=== PATIENT | female | born 1985 | race Caucasian/White ===

== ENCOUNTER 2023-10-26 10:12 | Outpatient (AMB) | payer OTHER, SELFPAY ==
--- NOTE | 2023-10-26 10:11 | MHC.OFFWIV ---
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 States she has always had some mild lower back pain, however on 10/01, she woke up with terrible LBP, R>L. Reports painful bending and stepping, particularly with right foot. Pain also worsened with bearing down. Denies any leg radiation or weakness/numbness. She was seen at her PCP the following day and had XR done which revealed mild degenerative changes and lower lumbar facet arthropathy. She was prescribed Ibuprofen and Cyclobenzaprine and has been using this with some minor relief. Her mother is a physical therapist and has been helping her with massage, stretching, tens machine. Patient was also referred and starts formal PT in [place] on 11/04. [facility] Social History Patient Tobacco Use Status: Never used Tobacco Review of Systems Const All systems reviewed & are unremarkable except as noted in HPI and below Physical Exam Const General: cooperative Orientation/consciousness: patient oriented x3 Limitations: no limitations Neck Neck: Yes normal visual inspection and Yes full ROM Resp Effort & Inspection: normal respiratory effort Back/Spine/Pelvis Thoracic/Lumbar Spine: thoracic and lumbar spine normal to inspection, straight leg raise negative bilaterally, paraspinal muscle tenderness on the right greater than left and thoraco-lumbar ROM limited (extension, +facet loading, painful lat flexion R>L) Skin General skin exam: no rashes or lesions noted Neuro General: patient oriented x3 Gait exam (Neuro): Normal gait present Motor exam (neuro): 5/5 motor strength present throughout Extrem General: Yes capillary refill normal and Yes no clubbing, cyanosis or edema Psych Appearance: grossly normal Mental Status: mental status grossly normal Speech and movement: Normal speech and movement present Assessment & Plan Assessment & Plan (1) Lumbar facet arthropathy: Code(s): M47.816 - Spondylosis without myelopathy or radiculopathy, lumbar region Plan: Symptoms and exam are consistent with lumbar facet-mediated pain, R>L, in addition to some myofascial tenderness in her lower lumbar paraspinals. No radiculopathy, neg SLR. She has done some informal PT with her mother who is a physical therapist, and starts formal PT on 11/04. I have refilled her cyclobenzaprine and will put her on a short course of PO prednisone, as she has not had any benefit from Ibuprofen. We reviewed indications, use, possible s/e of medications. We also reviewed possibility of injection therapy with pain management office at [facility]. She is interested in this and would like referral, which I have placed. Encouraged to continue gentle stretching, ROM exercises as tolerated. She agrees with plan. She can f/u with PCP or at [facility] as needed if pain persists or new symtpoms develop. Orders: Referrals Pain Management Referral M47.816 - Spondylosis without myelopathy or radiculopathy, lumbar region Medications: New cyclobenzaprine 5 mg PO TID 5 days PRN 15 tabs 0RF muscle spasm M47.816 - Spondylosis without myelopathy or radiculopathy, lumbar region prednisone 20 mg PO BID 5 days 10 tabs 0RF M47.816 - Spondylosis without myelopathy or radiculopathy, lumbar region Coding Level of Care Code Est Pt Level 4 (76369) Diagnoses Lumbar facet arthropathy M47.816
[2023-10-26 10:16] VITALS: BP 160/100; PULSE 86; TEMP 36.7; O2SAT 97; BMI 41.2
== END 2023-10-26 10:49 | disposition home or self-care (01) ==
PROVIDERS: PCP Internal Medicine Nephrology; Visit Provider Nurse Practitioner Family
DX: M47.816 Spondylosis without myelopathy or radiculopathy, lumbar region (principal)
CPT/HCPCS: 99214

== ENCOUNTER → 2023-11-01 12:40 | Outpatient (BNVA) | payer OTHER, SELFPAY | PROVIDERS: PCP Internal Medicine Nephrology; Referring Provider Nurse Practitioner Family; Visit Provider Registered Nurse Emergency ==

== ENCOUNTER 2023-11-12 14:56 | Outpatient (AMB) | payer OTHER, SELFPAY ==
--- NOTE | 2023-11-12 14:57 | A.OFFVIS_ITS ---
Vital Signs 3 11/12/23 15:03 Height 5 ft 1 in Weight 216 lb BMI 40.8 BP 159/93 H Blood Pressure Location Rt brachial Position Sitting Pulse 108 H Pulse Source Pulse Oximeter Pulse Oximetry (%) 100 Oxygen Delivery Method Room Air Intake Visit Reasons: Low Back Pain Intake Note: Pain today 01/08 Corporate Affairs Manager Required: No Accompanied by: Self / Same As Patient Allergies sertraline Allergy (Unknown, Verified 11/12/23 15:02) Diarrhea HPI HPI Low Back Pain: Details: Patient is a pleasant 38-year-old female is history of chronic low back pain and facet arthropathy presents today for initial evaluation of low back pain. Denies any recent or past trauma, injury, or falls. Patient denies any inciting events but reports occasional ?weird dreams and states she remembers jumping out of bed. Back pain is axial and also radiates to both legs intermittently without any specific dermatome. She reports left foot numbness and tingling without weakness or foot drop. Patient completed one session of physical therapy at [facility] after which her back pain significantly increased. She could not return to work due to exacerbation of pain and has been taken intermittent days of since unknown back injury on 10/02/23. 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 She reports increased pain with prolonged walking, standing, climbing stairs. Lumbar xray was done in [facility] and is noted below. Patient reports back pain affects her daily activities and functioning, mobility, sleep, and social interactions. She is interested in interventional treatments to address her low back pain as well as restart physical therapy to strengthen her core and reduced muscle spasms. Denies any fever, abdominal or groin pain, bladder or bowel dysfunction, or saddle anesthesia. Patient receives psychological counseling for depression and anxiety at the [facility]. She consumes 6 cups of coffee daily, rare beer consumption and vaping. Patient denies illicit drug use. Location: Lower back pain, intermittent bilateral radiculopathy Duration: Chronic pain for >10 years, worsening 10/02/23, no inciting events Characteristics of symptom or complaint: Throbbing, stabbing, sharp, tingling Aggravating or associated factors: Movement, walking, standing Relieving factors: Heat, gaabapentin, cyclobenzaprine, Tylenol, Ibuprofen Treatment: PT- made pain worse after 1st session, chiropractor x5, TENS, massage [facility] Medical History (Updated 11/12/23 @ 21:49 by PUNEET Pack) De Quervain's syndrome (tenosynovitis) Anxiety and depression Former smoker Hyperlipidemia Allergic rhinitis Panic disorder Fibromyalgia IUD (intrauterine device) in place Heart palpitations Family history of ovarian cancer Eczema Muscle spasm of back Low back pain Morbid obesity with BMI of 40.0-44.9, adult Insomnia Surgical History (Updated 11/12/23 @ 21:49 by PUNEET Pack) Hx of reduction mammoplasty (~2008) History of surgery on wrist History of wisdom tooth extraction History of hemorrhoidectomy History of lumpectomy of right breast (~2021) Social History Alcohol intake: current Alcohol intake frequency: holidays/special occasions only Alcohol type: beer Patient Tobacco Use Status: Never used Tobacco e-Cigarette/Vaping Use: Currently Using Current occupational status: employed 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 No acute distress. Alert and oriented. Mood and affect appropriate. Follows and participates in conversation appropriately. Respiratory effort is unlabored. No cough. Able to transition from sit to stand unassisted. Ambulates with bilaterally normal heel strike and toe off. Const General: no acute distress, well developed, alert and awake; No confusion Nutritional Appearance: average body habitus and obese morbidly obese Orientation/consciousness: patient oriented x3 and No confusion General: Yes no CVA tenderness Back/Spine/Pelvis Other: Patient is able to walk and stand on heels and tip toes with no difficulties demonstrating good motor tone. No limping. Can flex forward to 80-85 degrees and extend to 5-10 degrees before experiencing lumbar pain, worse pain with extension. Demonstrates 5/5 strength of quadriceps bilaterally as well as flexion/dorsiflexion of bilateral feet against resistance. 2+ pedal pulses bilaterally. Seated and supine straight leg rise with dorsiflexion negative bilaterally. +2 patellar and achilles reflexes bilaterally. Facet loading test positive bilaterally, right>left. Addis sign, Terrence?s, Pelvic compression and Stinchfield tests are positive bilaterally, right>left. No groin pain with I/E hip rotations. Significant paraspinals tenderness mostly on the right, mid and lower back. Valsalva maneuver negative. Back: no CVA tenderness Cervical Spine: cervical ROM normal, cervical muscular tenderness and No Cervical spine tenderness Thoracic/Lumbar Spine: thoracic and lumbar spine normal to inspection, No Thoracic/lumbar spine scar(s), Lasegue's sign negative, straight leg raise negative bilaterally, pain with thoraco-lumbar ROM, paraspinal muscle tenderness on the right greater than left, thoraco-lumbar ROM limited, No thoracic spinal tenderness and lumbar spinal tenderness at L4 and at L5 Pelvis: buttock tenderness bilaterally Sacroiliac joints: bilaterally tender to palpation Neuro General: patient oriented x3 and No confusion Extrem General: Yes capillary refill normal, Yes no clubbing, cyanosis or edema and Yes no calf tenderness Psych Appearance: grossly normal Mental Status: mental status grossly normal Speech and movement: Normal speech and movement present Affect: normal affect and Anxious affect present Attitude: cooperative Thought process: Normal thought process present Thought content: Normal thought content present, suicidality (none), no hallucinations and No Depressive thoughts present Insight: Good insight present (Psych) Judgement: Good judgement present (Psych) Results Reviewed Results Reviewed: Assessment & Plan Assessment & Plan (1) Low back pain: Code(s): M54.50 - Low back pain, unspecified Category: Medical (2) Lumbosacral spondylosis: Code(s): M47.817 - Spondylosis without myelopathy or radiculopathy, lumbosacral region Category: Medical (3) Sacroiliac joint pain: Code(s): M53.3 - Sacrococcygeal disorders, not elsewhere classified Category: Medical (4) Muscle spasm of back: Code(s): M62.830 - Muscle spasm of back Category: Medical (5) Morbid obesity with BMI of 40.0-44.9, adult: Code(s): E66.01 - Morbid (severe) obesity due to excess calories; Z68.41 - Body mass index [BMI] 40.0-44.9, adult Category: Medical Plan Patient has low back pain consistent with axial and sacroiliac back pain components. We will proceed with sacroiliac joint x-ray. Tentatively schedule diagnostic bilateral L3-L4 DR L5 medial branch blocks with local and fluoroscopy. Expectations, risks and benefits were reviewed. If she has significant relief from the diagnostic blocks for her axial low back pain, will consider either therapeutic injections or RFA depending on her preference. Given BMI>40, she is not candidate for Sprint PNS trial at this time. If no pain relief with lumbar MBB, we will proceed with diagnostic bilateral SIJ injections. Script provided for lidocaine patch, methocarbamol and diclofenac potassium for acute on chronic low back pain. Side effects and precautions were discussed with patient in greater detail. Patient is aware to avoid other NSAIDs while taking diclofenac potassium with food and full glass of water and take it on p.r.n. basis only for moderate to severe pain. Work note provided at patient's request today. Encouraged daily physical activity as tolerated, PT and home exercise program, adequate hydration, well- balanced diet, weight optimization and good posture. All questions and concerns have been answered and patient agreed is the plan follow-up for x-ray results/medication review and sooner as needed. Orders: Orders 2 XR sacroiliac joint min 3V Today M47.817 - Spondylosis without myelopathy or radiculopathy, lumbosacral region, M53.3 - Sacrococcygeal disorders, not elsewhere classified, M54.50 - Low back pain, unspecified Medications: New 2 methocarbamol 750 mg PO Q8H PRN 90 tabs 0RF muscle spasm M47.817 - Spondylosis without myelopathy or radiculopathy, lumbosacral region, M53.3 - Sacrococcygeal disorders, not elsewhere classified, M54.50 - Low back pain, unspecified, M62.830 - Muscle spasm of back diclofenac potassium Take it with food and full glass of water. Avoid other NSAIDs. 50 mg PO BID PRN 60 tabs 0RF pain M47.817 - Spondylosis without myelopathy or radiculopathy, lumbosacral region, M53.3 - Sacrococcygeal disorders, not elsewhere classified, M54.50 - Low back pain, unspecified lidocaine 5% 1 patch topical DAILY 30 ea 1RF pain M47.817 - Spondylosis without myelopathy or radiculopathy, lumbosacral region, M53.3 - Sacrococcygeal disorders, not elsewhere classified, M54.50 - Low back pain, unspecified Discontinued 2 cyclobenzaprine Discontinued Reason: Patient Completed Course 5 mg PO TID 5 days PRN 15 tabs 0RF muscle spasm M47.816 - Spondylosis without myelopathy or radiculopathy, lumbar region Coding Level of Care Code New Pt Level 4 (42400) Diagnoses Low back pain M54.50 Lumbosacral spondylosis M47.817 Sacroiliac joint pain M53.3 Muscle spasm of back M62.830 Morbid obesity with BMI of 40.0-44.9, adult E66.01; Z68.41
[2023-11-12 15:03] VITALS: BP 159/93; PULSE 108; O2SAT 100; BMI 40.8
== END 2023-11-12 15:40 | disposition home or self-care (01) ==
PROVIDERS: PCP Internal Medicine; Referring Provider Physician Assistant; Visit Provider Nurse Practitioner Family
DX: M54.50 Low back pain, unspecified (principal); M47.817 Spondylosis without myelopathy or radiculopathy, lumbosacral region; M53.3 Sacrococcygeal disorders, not elsewhere classified; M62.830 Muscle spasm of back; E66.01 Morbid (severe) obesity due to excess calories; Z68.41 Body mass index [BMI] 40.0-44.9, adult
CPT/HCPCS: 99204

== ENCOUNTER 2023-11-12 14:56 | Outpatient (REF) | payer OTHER, SELFPAY ==
--- NOTE | ~2023-11-12 | XR_ITS ---
EXAMINATION: XR SACROILIAC JOINTS CLINICAL INFORMATION: Back pain unspecified. COMPARISON: None available. TECHNIQUE: 3 views of the sacroiliac joints FINDINGS: IUD in the pelvis. Degenerative changes in the imaged lower lumbar spine. Degenerative changes with sclerosis and narrowing in the bilateral sacroiliac joints. XR/XR sacroiliac joint min 3V IMPRESSION: Moderate degenerative changes with sclerosis and narrowing in the bilateral sacroiliac joints.
== END 2023-11-12 14:57 | disposition home or self-care (01) ==
LOC: HO.XRAY 14:56
PROVIDERS: PCP Internal Medicine; Referring Provider Physician Assistant; Visit Provider Nurse Practitioner Family
DX: M47.817 Spondylosis without myelopathy or radiculopathy, lumbosacral region (principal); M53.3 Sacrococcygeal disorders, not elsewhere classified
CPT/HCPCS: 72202

== ENCOUNTER 2023-11-27 08:53 | Outpatient (AMB) | payer OTHER, SELFPAY ==
--- NOTE | 2023-11-27 09:02 | A.OFFVIS_ITS ---
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 She continues to endorse low back pain with radiation to her hips and legs laterally with muscle spasms and pain in her buttocks. Xray findings showed moderate degenerative changes with sclerosis and narrowing in the bilateral sacroiliac joints. Patient reports strong family history of degenerative arthritis in her father and is concerned for inflammatory degenerative arthritis for herself. We will obtain baseline labs today and consider Rheumatology referral if indicated. In meantime, patient would like to proceed with therapeutic sacroiliac joint injections to alleviate her chronic daily low back pain and decrease regular NSAID use. She reports good tolerance with methocarbamol and diclofenac potassium without any side effects with partial and temporary pain relief. Denies any recent cough, cold, infection, fever, any significant changes in her medical history, medications or recent hospitalizations. PRIOR: Patient is a pleasant 38-year-old female with history of chronic low back pain and facet arthropathy presents today for initial evaluation of low back pain. Denies any recent or past trauma, injury, or falls. Patient denies any inciting events but reports occasional ?weird dreams and states she remembers jumping out of bed. Back pain is axial and also radiates to both legs intermittently without any specific dermatome. She reports left foot numbness and tingling without weakness or foot drop. Patient completed one session of physical therapy at [facility] after which her back pain significantly increased. She could not return to work due to exacerbation of pain and has been taken intermittent days of since unknown back injury on 10/02/23. 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 She reports increased pain with prolonged walking, standing, climbing stairs. Lumbar xray was done in [facility] [address] and is noted below. Patient reports back pain affects her daily activities and functioning, mobility, sleep, and social interactions. She is interested in interventional treatments to address her low back pain as well as restart physical therapy to strengthen her core and reduced muscle spasms. Denies any fever, abdominal or groin pain, bladder or bowel dysfunction, or saddle anesthesia. Patient receives psychological counseling for depression and anxiety at the [facility]. She consumes 6 cups of coffee daily, rare beer consumption and vaping. Patient denies illicit drug use. Location: Lower back pain, intermittent bilateral radiculopathy Duration: Chronic pain for >10 years, worsening 10/02/23, no inciting events Characteristics of symptom or complaint: Throbbing, stabbing, sharp, tingling Aggravating or associated factors: Movement, walking, standing Relieving factors: Heat, gabapentin, cyclobenzaprine, Tylenol, Ibuprofen Treatment: PT- made pain worse after 1st session, chiropractor x5, TENS, massage Oswestry Low Back Disability Score=35 [facility] Medical History De Quervain's syndrome (tenosynovitis) Anxiety and depression Former smoker Hyperlipidemia Allergic rhinitis Panic disorder Fibromyalgia IUD (intrauterine device) in place Heart palpitations Family history of ovarian cancer Eczema Muscle spasm of back Low back pain Morbid obesity with BMI of 40.0-44.9, adult Insomnia Surgical History Hx of reduction mammoplasty (~2008) History of surgery on wrist History of wisdom tooth extraction History of hemorrhoidectomy History of lumpectomy of right breast (~2021) Social History Alcohol intake: current Alcohol intake frequency: holidays/special occasions only Alcohol type: beer Patient Tobacco Use Status: Never used Tobacco e-Cigarette/Vaping Use: Currently Using Current occupational status: employed 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 Alert and oriented. Mood and affect appropriate. Follows and participates in conversation appropriately. Respiratory effort is unlabored. No cough. Able to transition from sit to stand unassisted. Ambulates with bilaterally normal heel strike and toe off. General: Yes no CVA tenderness Back/Spine/Pelvis Other: Limited lumbar ROM due to pain. Slightly antalgic gait. No limping. Can flex forward to 75-80 degrees and extend to 5-10 degrees before experiencing lumbar pain, worse pain with extension. Demonstrates 5/5 strength of quadriceps bilaterally as well as flexion/dorsiflexion of bilateral feet against resistance. 2+ pedal pulses bilaterally. SLR test with dorsiflexion negative bilaterally. +2 patellar and achilles reflexes bilaterally. Facet loading test positive bilaterally, right>left. Addis sign, Terrence?s, [place], Pelvic compression and Stinchfield tests are positive bilaterally, right>left. No groin pain with I/E hip rotations. Valsalva maneuver negative. Multiple widespread TTPs 16/16 bilaterally, including upper and lower extremities.?? Back: no CVA tenderness Cervical Spine: cervical ROM normal, cervical muscular tenderness and No Cervical spine tenderness Thoracic/Lumbar Spine: thoracic and lumbar spine normal to inspection, No Thoracic/lumbar spine scar(s), Lasegue's sign negative, straight leg raise negative bilaterally, pain with thoraco-lumbar ROM, paraspinal muscle tenderness on the right greater than left, thoraco-lumbar ROM limited, No thoracic spinal tenderness and lumbar spinal tenderness (L4-S1) Pelvis: buttock tenderness bilaterally Sacroiliac joints: bilaterally tender to palpation Extrem General: Yes capillary refill normal, Yes no clubbing, cyanosis or edema and Yes no calf tenderness Results Reviewed Results Reviewed: XR SACROILIAC JOINTS 11/12/23 CLINICAL INFORMATION: Back pain unspecified. FINDINGS: IUD in the pelvis. Degenerative changes in the imaged lower lumbar spine. Degenerative changes with sclerosis and narrowing in the bilateral sacroiliac joints. IMPRESSION: Moderate degenerative changes with sclerosis and narrowing in the bilateral sacroiliac joints. Assessment & Plan Assessment & Plan (1) Sacroiliac joint pain: Code(s): M53.3 - Sacrococcygeal disorders, not elsewhere classified Category: Medical (2) Degenerative joint disease of sacroiliac joint: Code(s): M46.1 - Sacroiliitis, not elsewhere classified Category: Medical (3) Lumbosacral spondylosis: Code(s): M47.817 - Spondylosis without myelopathy or radiculopathy, lumbosacral region Category: Medical (4) Low back pain: Code(s): M54.50 - Low back pain, unspecified Category: Medical (5) Muscle spasm of back: Code(s): M62.830 - Muscle spasm of back Category: Medical Plan Sacroiliac joint xray results and interventional treatments discussed with patient in greater detail, including diagnostic versus therapeutic injections, SI joint stabilization, peripheral nerve stimulation radiofrequency ablation. Informational pamphlets provided to patient. Patient would like to proceed with therapeutic injections at this time. Scheduled therapeutic bilateral sacroiliac joint injections with local and fluoroscopy. Expectations, risks and benefits were reviewed. Patient is aware she will be contacted to schedule this procedure. Will obtain baseline labs to rule out inflammatory arthritis with positive family history and significant bilateral SIJ arthritis with degenerative changes. Depending on results, will consider Rheumatology referral. All questions were answered and the patient is in agreement of plan. Follow-up after injections and sooner as needed. Orders: Orders 2 VICKY Reflex Titer and Pattern Today M46.1 - Sacroiliitis, not elsewhere classified, M53.3 - Sacrococcygeal disorders, not elsewhere classified Rheumatoid Factor Today M46.1 - Sacroiliitis, not elsewhere classified, M53.3 - Sacrococcygeal disorders, not elsewhere classified CRP High Sensitivity Today M46.1 - Sacroiliitis, not elsewhere classified, M53.3 - Sacrococcygeal disorders, not elsewhere classified Erythrocyte Sedimentation Rate Today M46.1 - Sacroiliitis, not elsewhere classified, M53.3 - Sacrococcygeal disorders, not elsewhere classified DNA Double Stranded-Crithidia Today M46.1 - Sacroiliitis, not elsewhere classified, M53.3 - Sacrococcygeal disorders, not elsewhere classified Cyclic Citrullinated Peptide Today M46.1 - Sacroiliitis, not elsewhere classified, M53.3 - Sacrococcygeal disorders, not elsewhere classified Coding Level of Care Code Est Pt Level 4 (62889) Diagnoses Sacroiliac joint pain M53.3 Degenerative joint disease of sacroiliac joint M46.1 Lumbosacral spondylosis M47.817 Low back pain M54.50 Muscle spasm of back M62.830
[2023-11-27 09:04] VITALS: BP 137/75; PULSE 87; O2SAT 99; BMI 40.8
== END 2023-11-27 09:31 | disposition home or self-care (01) ==
PROVIDERS: PCP Internal Medicine; Visit Provider Nurse Practitioner Family
DX: M53.3 Sacrococcygeal disorders, not elsewhere classified (principal); M46.1 Sacroiliitis, not elsewhere classified; M47.817 Spondylosis without myelopathy or radiculopathy, lumbosacral region; M54.50 Low back pain, unspecified; M62.830 Muscle spasm of back
CPT/HCPCS: 99214

== ENCOUNTER 2023-11-27 08:54 | Outpatient (REF) | payer OTHER, SELFPAY ==
[2023-11-27 11:12] LABS: Erythrocyte Sedimentation Rate 10 MM/HR (0-20)
[2023-11-27 11:17] LABS: Rheumatoid Factor < 13.0 IU/mL (<15.0)
[2023-11-28 15:38] LABS: Cyclic Citrullinated Peptide <16 UNITS
[2023-11-28 17:33] LABS: CRP High Sensitivity 8.9 mg/L
[2023-11-29 21:23] LABS: Anti Nuclear Antibody Screen NEGATIVE (NEGATIVE)
[2023-12-02 15:08] LABS: DNAds, Crithidia Antibody Negative (Negative)
== END 2023-11-27 08:55 | disposition home or self-care (01) ==
LOC: HO.LAB 08:54
PROVIDERS: PCP Internal Medicine; Visit Provider Nurse Practitioner Family
DX: M53.3 Sacrococcygeal disorders, not elsewhere classified (principal); M46.1 Sacroiliitis, not elsewhere classified; M47.817 Spondylosis without myelopathy or radiculopathy, lumbosacral region; M54.50 Low back pain, unspecified; M62.830 Muscle spasm of back
CPT/HCPCS: 36415; 85652; 86038; 86141; 86200; 86255; 86431

== ENCOUNTER 2024-01-01 06:18 | Outpatient (REF) | payer OTHER, SELFPAY ==
--- NOTE | ~2024-01-01 | FL_ITS ---
EXAMINATION: XR FLUOROSCOPY WITH IMAGES CLINICAL INFORMATION: Sacrococcygeal disorders. COMPARISON: None available. TECHNIQUE: Fluoroscopy Supervised By: Dr. Marbin Tijerina. Fluoroscopy Time: 0.1 minute. Cumulative Dose: 3.84 mGy. DAP: 0.0667 Gycm2. Images: 2. FINDINGS: Intraoperative fluoroscopy and spot films were performed during a procedure in the OR. [place] are present in each SI joint with contrast media injected and seen surrounding the needle tips. Please correlate with Dr. Marbin Tijerina's report for complete details. FL/FL guidance in treatment room IMPRESSION: Intraoperative fluoroscopy and spot films were obtained. Please see Dr. Marbin Tijerina's report for complete details.
== END 2024-01-01 06:19 | disposition home or self-care (01) ==
LOC: CF 06:18
PROVIDERS: Visit Provider Anesthesiology
DX: M53.3 Sacrococcygeal disorders, not elsewhere classified (principal); M54.50 Low back pain, unspecified
CPT/HCPCS: 27096; J2795; J3301; Q9967

== ENCOUNTER 2024-01-01 14:02 | Outpatient (AMB) | payer OTHER, SELFPAY ==
--- NOTE | 2024-01-01 14:02 | A.OFFVIS_ITS ---
Vital Signs 01/01/24 14:48 01/01/24 14:49 Height 5 ft 1 in 5 ft 1 in Weight 216 lb 216 lb BMI 40.8 40.8 BP 113/71 124/63 Blood Pressure Location Lt brachial Lt brachial Position Sitting Sitting Respiration 16 16 Pulse 78 72 Pulse Source Pulse Oximeter Pulse Oximeter Pulse Oximetry (%) 98 98 Oxygen Delivery Method Room Air Room Air Comment pre-op post-op Intake Visit Reasons: Bilateral Therapeutic SIJ injrction Allergies sertraline Allergy (Unknown, Verified 01/01/24 14:50) Diarrhea PFSH Medical History De Quervain's syndrome (tenosynovitis) Anxiety and depression Former smoker Hyperlipidemia Allergic rhinitis Panic disorder Fibromyalgia IUD (intrauterine device) in place Heart palpitations Family history of ovarian cancer Eczema Muscle spasm of back Low back pain Morbid obesity with BMI of 40.0-44.9, adult Insomnia Surgical History Hx of reduction mammoplasty (~2008) History of surgery on wrist History of wisdom tooth extraction History of hemorrhoidectomy History of lumpectomy of right breast (~2021) Social History Alcohol intake: current Alcohol intake frequency: holidays/special occasions only Alcohol type: beer Patient Tobacco Use Status: Never used Tobacco e-Cigarette/Vaping Use: Currently Using Current occupational status: employed 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 Informed consent was explained thoroughly to the patient. All questions about benefits and risks for the procedure were answered. Patient came to the operating room and was positioned prone on the operating table with the pillow under the pelvis. Time out was performed delineating name and of the patient, allergies and the nature of the procedure. The lower back and buttocks of the patient were prepped with ChloraPrep prepped and draped with sterile utility towels. C-arm was brought over the operating field and sq picture of patient's pelvis was demonstrated on the screen. For the right joint tilting C-arm contralateral to the site of the joint the most posterior portion of the joints was superimposed with anterior silhouette of the joint. Skin was injected in the projection of the joint slightly medial to the location of the joint with 25 gauge 1/2 inch needle using local lidocaine 2% .After that 22 gauge 3 and 1/2 inch needle was driven to the right joint in tunnel vision fashion. When needle entered the joint capsule injection of the contrast was performed demonstrating intra-articular and minimally periarticular spread of the contrast. After that 4 cc. of ropivacaine 0.5% mixed with kenalog 40 mg was injected into the joint. Upon completion of the injections the needle was removed. The procedure was repeated on the left side in the mirroring fashion. total dose of kenalog is 40 mgSterile dressing was applied. Upon completion of the injection patient was taken outside of the operating room to the recovery room where recovered uneventfully. Orders: Orders FL guidance in treatment room 01/01/24 M53.3 - Sacrococcygeal disorders, not elsewhere classified Coding Level of Care Code Procedure Only Diagnoses Sacroiliac joint pain M53.3 Low back pain M54.50
[2024-01-01 14:48] VITALS: BP 113/71; PULSE 78; RESP 16; O2SAT 98; BMI 40.8
[2024-01-01 14:49] VITALS: BP 124/63; PULSE 72; RESP 16; O2SAT 98; BMI 40.8
== END 2024-01-01 14:29 | disposition home or self-care (01) ==
PROVIDERS: PCP Internal Medicine; Visit Provider Anesthesiology
DX: M53.3 Sacrococcygeal disorders, not elsewhere classified (principal); M54.50 Low back pain, unspecified
CPT/HCPCS: 27096

== ENCOUNTER 2024-01-28 10:51 | Outpatient (AMB) | payer OTHER, SELFPAY ==
--- NOTE | 2024-01-28 10:54 | A.OFFVIS_ITS ---
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 Tijerina. Patient reports ongoing 80% pain relief in the projection of lower back, hip and buttocks since procedure with improved functioning, mobility and sleep. She reports she cannot walk for full block yet due to increase in pain but notices most of her ADLs are performed with minimal to no pain since injections. She denies any pain at rest or sleep. Patient is very content with procedure outcome. Denies any untoward effects with steroidal injections. We also reviewed baseline labs prior Rheumatology evaluation, which all came back within normal limits except CRP at 8.9. We will repeat CRP. Patient denies any recent cough, cold, infection, rash, fever, any significant changes in her medical history, medications or recent hospitalizations. Past Procedures: 01/01/24: Bilateral Therapeutic SIJ injections-80% ongoing pain relief with activities, 100% pain relief at rest or sleep PRIOR: Patient presents today for follow-up to review recent sacroiliac joint injection x-ray results. She continues to endorse low back pain with radiation to her hips and legs laterally with muscle spasms and pain in her buttocks. Xray findings showed moderate degenerative changes with sclerosis and narrowing in the bilateral sacroiliac joints. Patient reports strong family history of degenerative arthritis in her father and is concerned for inflammatory degenerative arthritis for herself. We will obtain baseline labs today and consider Rheumatology referral if indicated. In meantime, patient would like to proceed with therapeutic sacroiliac joint injections to alleviate her chronic daily low back pain and decrease regular NSAID use. She reports good tolerance with methocarbamol and diclofenac potassium without any side effects with partial and temporary pain relief. Denies any recent cough, cold, infection, fever, any significant changes in her medical history, medications or recent hospitalizations. PRIOR: Patient is a pleasant 38-year-old female with history of chronic low back pain and facet arthropathy presents today for initial evaluation of low back pain. Denies any recent or past trauma, injury, or falls. Patient denies any inciting events but reports occasional ?weird dreams and states she remembers jumping out of bed. Back pain is axial and also radiates to both legs intermittently without any specific dermatome. She reports left foot numbness and tingling without weakness or foot drop. Patient completed one session of physical therapy at [facility] after which her back pain significantly increased. She could not return to work due to exacerbation of pain and has been taken intermittent days of since unknown back injury on 10/02/23. 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 She reports increased pain with prolonged walking, standing, climbing stairs. Lumbar xray was done in [facility] and is noted below. Patient reports back pain affects her daily activities and functioning, mobility, sleep, and social interactions. She is interested in interventional treatments to address her low back pain as well as restart physical therapy to strengthen her core and reduced muscle spasms. Denies any fever, abdominal or groin pain, bladder or bowel dysfunction, or saddle anesthesia. Patient receives psychological counseling for depression and anxiety at the [facility] psychiat[facility]. She consumes 6 cups of coffee daily, rare beer consumption and vaping. Patient denies illicit drug use. Location: Lower back pain, intermittent bilateral radiculopathy Duration: Chronic pain for >10 years, worsening 10/02/23, no inciting events Characteristics of symptom or complaint: Throbbing, stabbing, sharp, tingling Aggravating or associated factors: Movement, walking, standing Relieving factors: Heat, gabapentin, cyclobenzaprine, Tylenol, Ibuprofen Treatment: PT- made pain worse after 1st session, chiropractor x5, TENS, massage Oswestry Low Back Disability Score=35 [facility] Medical History De Quervain's syndrome (tenosynovitis) Anxiety and depression Former smoker Hyperlipidemia Allergic rhinitis Panic disorder Fibromyalgia IUD (intrauterine device) in place Heart palpitations Family history of ovarian cancer Eczema Muscle spasm of back Low back pain Morbid obesity with BMI of 40.0-44.9, adult Insomnia Surgical History Hx of reduction mammoplasty (~2008) History of surgery on wrist History of wisdom tooth extraction History of hemorrhoidectomy History of lumpectomy of right breast (~2021) Social History Alcohol intake: current Alcohol intake frequency: holidays/special occasions only Alcohol type: beer Patient Tobacco Use Status: Never used Tobacco e-Cigarette/Vaping Use: Currently Using Current occupational status: employed 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 Alert and oriented. Mood and affect appropriate. Follows and participates in conversation appropriately. Respiratory effort is unlabored. No cough. Able to transition from sit to stand unassisted. Ambulates with bilaterally normal heel strike and toe off. Results Reviewed Results Reviewed: XR SACROILIAC JOINTS 11/12/23 CLINICAL INFORMATION: Back pain unspecified. FINDINGS: IUD in the pelvis. Degenerative changes in the imaged lower lumbar spine. Degenerative changes with sclerosis and narrowing in the bilateral sacroiliac joints. IMPRESSION: Moderate degenerative changes with sclerosis and narrowing in the bilateral sacroiliac joints. Assessment & Plan Assessment & Plan (1) Degenerative joint disease of sacroiliac joint: Code(s): M46.1 - Sacroiliitis, not elsewhere classified Category: Medical (2) Sacroiliac joint pain: Code(s): M53.3 - Sacrococcygeal disorders, not elsewhere classified Category: Medical (3) Lumbosacral spondylosis: Code(s): M47.817 - Spondylosis without myelopathy or radiculopathy, lumbosacral region Category: Medical (4) Low back pain: Code(s): M54.50 - Low back pain, unspecified Category: Medical Plan Patient is one month status post therapeutic bilateral SIJ injections with good results, improved functioning, mobility and sleep. Patient will continue to monitor her symptoms and pain for next 3-6 months and notify our office when her pain returns to baseline. Previously, we also discussed SI joint stabilization, peripheral nerve stimulation and radiofrequency ablation treatments for a longer term pain management. Reviewed lab work today as noted above, will repeat CRP level given recent elevated values at 8.9 All questions were answered and the patient is in agreement of plan. Follow-up as needed. Orders: Orders 2 CRP High Sensitivity Today M46.1 - Sacroiliitis, not elsewhere classified, R79.82 - Elevated C-reactive protein (CRP) Coding Level of Care Code Est Pt Level 3 (48440) Diagnoses Degenerative joint disease of sacroiliac joint M46.1 Sacroiliac joint pain M53.3 Lumbosacral spondylosis M47.817 Low back pain M54.50
[2024-01-28 10:58] VITALS: BP 168/88; PULSE 77; O2SAT 100; BMI 40.5
== END 2024-01-28 11:06 | disposition home or self-care (01) ==
PROVIDERS: PCP Internal Medicine; Visit Provider Nurse Practitioner Family
DX: M46.1 Sacroiliitis, not elsewhere classified (principal); M53.3 Sacrococcygeal disorders, not elsewhere classified; M47.817 Spondylosis without myelopathy or radiculopathy, lumbosacral region; M54.50 Low back pain, unspecified
CPT/HCPCS: 99213

== ENCOUNTER → 2024-01-28 10:51 | Outpatient (BNVA) | payer OTHER, SELFPAY | PROVIDERS: PCP Internal Medicine; Visit Provider Nurse Practitioner Family ==

== ENCOUNTER 2024-03-14 15:02 | Outpatient (AMB) | payer OTHER, SELFPAY ==
--- NOTE | 2024-03-14 15:06 | A.OFFVIS_ITS ---
Vital Signs 3 03/14/24 15:11 Height 5 ft 1 in Weight 214 lb BMI 40.4 BP 138/82 Blood Pressure Location Lt brachial Position Sitting Pulse 70 Pulse Source Pulse Oximeter Pulse Oximetry (%) 98 Oxygen Delivery Method Room Air Intake Visit Reasons: Low Back Pain Intake Note: Pain today 12/09 Residential Specialist Required: No Accompanied by: Self / Same As Patient Allergies sertraline Allergy (Unknown, Verified 03/14/24 15:11) Diarrhea HPI Comments Details: Patient presents today for follow-up for chronic low back pain with radicular symptoms. Patient reports significant bilateral sacroiliac joint pain with temporary therapeutic effects from recent cortisone injections in December. She also presents with significant discogenic and radicular low back pain, which affecting her ADLs, mobility, and work. Patient is interested to undergo diagnostic SI joint injections for potential RFA procedure. She denies any pain at rest or sleep. Patient denies any recent cough, cold, infection, rash, fever, bladder or bowel dysfunction, saddle anesthesia, any significant changes in her medical history, medications or recent hospitalizations. Past Procedures: 01/01/24: Bilateral Therapeutic SIJ injections-80% ongoing pain relief with activities, 100% pain relief at rest or sleep PRIOR: Patient presents today for follow-up to review recent sacroiliac joint injection x-ray results. She continues to endorse low back pain with radiation to her hips and legs laterally with muscle spasms and pain in her buttocks. Xray findings showed moderate degenerative changes with sclerosis and narrowing in the bilateral sacroiliac joints. Patient reports strong family history of degenerative arthritis in her father and is concerned for inflammatory degenerative arthritis for herself. We will obtain baseline labs today and consider Rheumatology referral if indicated. In meantime, patient would like to proceed with therapeutic sacroiliac joint injections to alleviate her chronic daily low back pain and decrease regular NSAID use. She reports good tolerance with methocarbamol and diclofenac potassium without any side effects with partial and temporary pain relief. Denies any recent cough, cold, infection, fever, any significant changes in her medical history, medications or recent hospitalizations. PRIOR: Patient is a pleasant 38-year-old female with history of chronic low back pain and facet arthropathy presents today for initial evaluation of low back pain. Denies any recent or past trauma, injury, or falls. Patient denies any inciting events but reports occasional ?weird dreams and states she remembers jumping out of bed. Back pain is axial and also radiates to both legs intermittently without any specific dermatome. She reports left foot numbness and tingling without weakness or foot drop. Patient completed one session of physical therapy at [facility] after which her back pain significantly increased. She could not return to work due to exacerbation of pain and has been taken intermittent days of since unknown back injury on 10/02/23. 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 She reports increased pain with prolonged walking, standing, climbing stairs. Lumbar xray was done in [facility] and is noted below. Patient reports back pain affects her daily activities and functioning, mobility, sleep, and social interactions. She is interested in interventional treatments to address her low back pain as well as restart physical therapy to strengthen her core and reduced muscle spasms. Denies any fever, abdominal or groin pain, bladder or bowel dysfunction, or saddle anesthesia. Patient receives psychological counseling for depression and anxiety at the [facility]. She consumes 6 cups of coffee daily, rare beer consumption and vaping. Patient denies illicit drug use. Location: Lower back pain, intermittent bilateral radiculopathy Duration: Chronic pain for >10 years, worsening 10/02/23, no inciting events Characteristics of symptom or complaint: Throbbing, stabbing, sharp, tingling Aggravating or associated factors: Movement, walking, standing Relieving factors: Heat, gabapentin, cyclobenzaprine, Tylenol, Ibuprofen Treatment: PT- made pain worse after 1st session, chiropractor x5, TENS, massage Oswestry Low Back Disability Score=35 [facility] Medical History De Quervain's syndrome (tenosynovitis) Anxiety and depression Former smoker Hyperlipidemia Allergic rhinitis Panic disorder Fibromyalgia IUD (intrauterine device) in place Heart palpitations Family history of ovarian cancer Eczema Muscle spasm of back Low back pain Morbid obesity with BMI of 40.0-44.9, adult Insomnia Surgical History Hx of reduction mammoplasty (~2008) History of surgery on wrist History of wisdom tooth extraction History of hemorrhoidectomy History of lumpectomy of right breast (~2021) Social History Alcohol intake: current Alcohol intake frequency: holidays/special occasions only Alcohol type: beer Patient Tobacco Use Status: Never used Tobacco e-Cigarette/Vaping Use: Currently Using Current occupational status: employed 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 Alert and oriented. Mood and affect appropriate. Follows and participates in conversation appropriately. Respiratory effort is unlabored. No cough. Able to transition from sit to stand unassisted. Ambulates with bilaterally normal heel strike and toe off. General: Yes no CVA tenderness Back/Spine/Pelvis Other: Limited lumbar ROM due to pain. Slightly antalgic gait. No limping. Can flex forward to 65-70 degrees and extend to 5-10 degrees before experiencing lumbar pain, worse pain with extension. Demonstrates 5/5 strength of quadriceps bilaterally as well as flexion/dorsiflexion of bilateral feet against resistance. 2+ pedal pulses bilaterally. SLR test with dorsiflexion negative bilaterally. +2 patellar and achilles reflexes bilaterally. Facet loading test positive bilaterally, right>left. Addis sign, Terrence?s, [place], Pelvic compression and Stinchfield tests are positive bilaterally. No groin pain with I/E hip rotations. Valsalva maneuver negative. Back: no CVA tenderness Cervical Spine: cervical ROM normal, cervical muscular tenderness and No Cervical spine tenderness Thoracic/Lumbar Spine: thoracic and lumbar spine normal to inspection, No Thoracic/lumbar spine scar(s), Lasegue's sign negative, straight leg raise negative bilaterally, pain with thoraco-lumbar ROM, paraspinal muscle tenderness on the right greater than left, thoraco-lumbar ROM limited, No thoracic spinal tenderness and lumbar spinal tenderness (L4-S1) Pelvis: buttock tenderness bilaterally Sacroiliac joints: bilaterally tender to palpation Extrem General: Yes capillary refill normal, Yes no clubbing, cyanosis or edema and Yes no calf tenderness Results Reviewed Results Reviewed: XR SACROILIAC JOINTS 11/12/23 CLINICAL INFORMATION: Back pain unspecified. FINDINGS: IUD in the pelvis. Degenerative changes in the imaged lower lumbar spine. Degenerative changes with sclerosis and narrowing in the bilateral sacroiliac joints. IMPRESSION: Moderate degenerative changes with sclerosis and narrowing in the bilateral sacroiliac joints. Assessment & Plan Assessment & Plan (1) Lumbosacral spondylosis: Code(s): M47.817 - Spondylosis without myelopathy or radiculopathy, lumbosacral region Category: Medical (2) Discogenic low back pain: Code(s): M51.36 - Other intervertebral disc degeneration, lumbar region Category: Medical (3) Lumbar radiculitis: Code(s): M54.16 - Radiculopathy, lumbar region Category: Medical (4) Degenerative joint disease of sacroiliac joint: Code(s): M46.1 - Sacroiliitis, not elsewhere classified Category: Medical (5) Sacroiliac joint pain: Code(s): M53.3 - Sacrococcygeal disorders, not elsewhere classified Category: Medical (6) Low back pain: Code(s): M54.50 - Low back pain, unspecified Category: Medical Plan Patient is 2 months status post therapeutic bilateral SIJ injections with return of her low back pain to its baseline. She also reports significant discogenic and radicular symptoms today. We will proceed with lumbar spine MRI to assess for neural integrity and compression. Schedule bilateral diagnostic sacroiliac joint injection with local and fluoroscopy for potential RFA procedure. We also discussed neuromodulation with Sprint PNS trial vs permanent Curonix PNS implant. Expectations, risks and benefits were reviewed. Patient is aware she will be contacted to schedule this procedure All questions were answered and the patient is in agreement of plan. Follow-up as needed. Orders: Orders 2 MR lumbar spine wo con Today M47.817 - Spondylosis without myelopathy or radiculopathy, lumbosacral region, M51.36 - Other intervertebral disc degeneration, lumbar region, M54.16 - Radiculopathy, lumbar region Coding Level of Care Code Est Pt Level 4 (26034) Complex EM visit Add On G2211 Diagnoses Lumbosacral spondylosis M47.817 Discogenic low back pain M51.36 Lumbar radiculitis M54.16 Degenerative joint disease of sacroiliac joint M46.1 Sacroiliac joint pain M53.3 Low back pain M54.50
[2024-03-14 15:11] VITALS: BP 138/82; PULSE 70; O2SAT 98; BMI 40.4
== END 2024-03-14 15:28 | disposition home or self-care (01) ==
PROVIDERS: PCP Internal Medicine; Visit Provider Nurse Practitioner Family
DX: M47.817 Spondylosis without myelopathy or radiculopathy, lumbosacral region (principal); M51.36 Other intervertebral disc degeneration, lumbar region; M54.16 Radiculopathy, lumbar region; M46.1 Sacroiliitis, not elsewhere classified; M53.3 Sacrococcygeal disorders, not elsewhere classified; M54.50 Low back pain, unspecified
CPT/HCPCS: 99214

== ENCOUNTER → 2024-03-14 15:02 | Outpatient (BNVA) | payer OTHER, SELFPAY | PROVIDERS: PCP Internal Medicine; Visit Provider Nurse Practitioner Family ==

== ENCOUNTER 2024-05-06 06:17 | Outpatient (REF) | payer OTHER, SELFPAY | END 2024-05-06 06:18 | disposition home or self-care (01) | LOC: CF 06:17 | PROVIDERS: Visit Provider Anesthesiology | DX: M53.3 Sacrococcygeal disorders, not elsewhere classified (principal) | CPT/HCPCS: 27096; J2003; J2795; Q9967 ==

== ENCOUNTER 2024-05-06 13:32 | Outpatient (AMB) | payer OTHER, SELFPAY ==
--- NOTE | 2024-05-06 13:37 | MHC.OFFVIS ---
Vital Signs 05/06/24 14:18 05/06/24 14:19 Height 5 ft 1 in 5 ft 1 in Weight 214 lb 214 lb BMI 40.4 40.4 BP 145/70 H 121/74 Blood Pressure Location Lt brachial Lt brachial Position Sitting Sitting Respiration 16 16 Pulse 79 75 Pulse Source Pulse Oximeter Pulse Oximeter Pulse Oximetry (%) 100 100 Oxygen Delivery Method Room Air Room Air Comment pre-op post-op Intake Visit Reasons: BILATERAL DIAGNOSTIC SIJ INJECTIONS Allergies sertraline Allergy (Unknown, Verified 05/06/24 14:22) Diarrhea PFSH Medical History De Quervain's syndrome (tenosynovitis) Anxiety and depression Former smoker Hyperlipidemia Allergic rhinitis Panic disorder Fibromyalgia IUD (intrauterine device) in place Heart palpitations Family history of ovarian cancer Eczema Muscle spasm of back Low back pain Morbid obesity with BMI of 40.0-44.9, adult Insomnia Surgical History Hx of reduction mammoplasty (~2008) History of surgery on wrist History of wisdom tooth extraction History of hemorrhoidectomy History of lumpectomy of right breast (~2021) Social History Alcohol intake: current Alcohol intake frequency: holidays/special occasions only Alcohol type: beer Patient Tobacco Use Status: Never used Tobacco e-Cigarette/Vaping Use: Currently Using Current occupational status: employed 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 All questions about benefits and risks for the procedure were answered. Patient came to the operating room and was positioned prone on the operating table with the pillow under the abdomen. The lower back and buttocks of the patient were prepped with ChloraPrep prepped and draped with sterile utility towels.? Sterilely draped C-arm was brought over the operating field and sq picture of patient's pelvis was demonstrated on the screen.? For the right joint tilting C-arm contralateral to the site of the joint the most posterior portion of the joints was superimposed with anterior silhouette of the joint.? Skin was injected in the projection of the joint slightly medial to the location of the joint with 25 gauge 1/2 inch needle using local lidocaine 2% . After that 22 gauge 3 and 1/2 inch needle was driven to the right joint in tunnel vision fashion.? When needle entered the joint capsule injection of the contrast was performed demonstrating intra-articular and minimally periarticular spread of the contrast.? After that 4 cc. of ropivacaine 0.5% was injected in the joint. After that procedure was repeated on the left side in mirroring fashion. Same dose of ropivacaine was injected into the joint. Upon completion of the injections the needle was removed and Band-Aid was applied.? Upon completion of the injection patient was taken outside of the operating room to the recovery room where recovered uneventfully. Orders: Orders FL guidance in treatment room Today M53.3 - Sacrococcygeal disorders, not elsewhere classified Coding Level of Care Code Procedure Only Diagnoses Sacroiliac joint pain M53.3
[2024-05-06 14:18] VITALS: BP 145/70; PULSE 79; RESP 16; O2SAT 100; BMI 40.4
[2024-05-06 14:19] VITALS: BP 121/74; PULSE 75; RESP 16; O2SAT 100; BMI 40.4
== END 2024-05-06 14:30 | disposition home or self-care (01) ==
LOC: HO.PMCPRC 13:32
PROVIDERS: PCP Internal Medicine; Visit Provider Anesthesiology
DX: M53.3 Sacrococcygeal disorders, not elsewhere classified (principal)
CPT/HCPCS: 27096

== ENCOUNTER 2024-05-13 14:25 | Outpatient (AMB) | payer OTHER, SELFPAY ==
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
[2024-05-13 14:30] VITALS: BP 195/104; PULSE 70; O2SAT 98; BMI 41.1
[2024-05-13 14:48] VITALS: BP 140/72
== END 2024-05-13 14:50 | disposition home or self-care (01) ==
PROVIDERS: PCP Internal Medicine; Visit Provider Nurse Practitioner Family
DX: M47.817 Spondylosis without myelopathy or radiculopathy, lumbosacral region (principal); M46.1 Sacroiliitis, not elsewhere classified; M53.3 Sacrococcygeal disorders, not elsewhere classified; M54.50 Low back pain, unspecified
CPT/HCPCS: 99214

== ENCOUNTER → 2024-08-31 14:47 | Outpatient (BNV) | payer OTHER, SELFPAY | PROVIDERS: PCP Internal Medicine; Visit Provider Radiology Diagnostic Radiology | DX: M47.817 Spondylosis without myelopathy or radiculopathy, lumbosacral region (principal) | CPT/HCPCS: 72148 ==

== ENCOUNTER 2024-08-31 14:52 | Outpatient (REF) | payer OTHER, SELFPAY ==
--- NOTE | ~2024-08-31 | MR_ITS ---
CLINICAL HISTORY: M47.817 - Spondylosis without myelopathy or radiculopathy, lumbosacral r... MR of the lumbar spine without contrast Comparison: None Findings: Normal alignment. Normal marrow signal. No cord expansion or abnormal signal intensity. The conus medullaris terminates at L1/L2, which is normal. 2 mm focus of increased signal on the T1 weighted images may indicate a fatty filum terminale (only well seen on series 9, image 10). There is edema in the subcutaneous fat. L1/L2: No disc herniation. No facet joint or ligamentum flavum hypertrophy. No central canal stenosis. No lateral recess stenosis. No foraminal stenosis. L2/L3: No disc herniation. No facet joint or ligamentum flavum hypertrophy. No central canal stenosis. No lateral recess stenosis. No foraminal stenosis. L3/L4: 2-3 mm broad-based disc bulge. Mild facet joint and ligamentum flavum hypertrophy. Mild central canal stenosis. Mild bilateral lateral recess stenosis. No foraminal stenosis. L4/L5: 2 mm broad-based disc bulge. Moderate facet joint and ligamentum flavum hypertrophy. Mild central canal stenosis. Moderate bilateral lateral recess stenosis. No foraminal stenosis. L5/S1: No disc herniation. Mild facet joint and ligamentum flavum hypertrophy. [id number] central canal stenosis; predominantly secondary to epidural lipomatosis. Epidural lipomatosis is present at the other levels, however is most prominent L5/S1. Mild bilateral lateral recess stenosis. No foraminal stenosis. Impression: No acute findings. [id number] multilevel degenerative change, detailed above. Focus of increased signal on the T1 weighted images which is only well seen on a single image could be fatty filum terminale. The spinal cord is not low-lying. This document has been electronically signed by: Mary Gore MD on 08/31/2024 15:54:19
== END 2024-08-31 14:53 | disposition home or self-care (01) ==
LOC: HO.MRI 14:52
PROVIDERS: PCP Internal Medicine; Visit Provider Nurse Practitioner Family
DX: M47.817 Spondylosis without myelopathy or radiculopathy, lumbosacral region (principal); M54.16 Radiculopathy, lumbar region
CPT/HCPCS: 72148

== ENCOUNTER 2024-09-15 14:50 | Outpatient (AMB) | payer OTHER, SELFPAY ==
--- NOTE | 2024-09-15 14:52 | MHC.OFFVIS ---
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 She continues to endorse chronic lower back pain with radiation pain down the left leg more posteriorly than anteriorly wiht associated numbness and tingling. The patient's lumbar spine degeneration has culminated in moderate spinal canal stenosis, particularly affecting the L5-S1 region, with associated ligamentous hypertrophy and epidural lipomatosis as noted below. Pain symptoms have worsened over two to three weeks, leading to significant activity limitations. Past therapeutic efforts have included pharmacological intervention with ibuprofen, gabapentin, and metocarbamol. However, pursuit of sacroiliac joint therapy has been repeatedly denied by insurance, prompting the patient to explore new insurance options for better access to advanced pain management such as nerve ablation or Sprint PNS trial. Denies any recent cough, cold, infection, rash, fever, bladder or bowel dysfunction, saddle anesthesia, any significant changes in her medical history, medications or recent hospitalizations. - Onset and Timing: Chronic pain, worsened in the past 2-3 weeks. - Quality and Character: Lower back pain with radiation to the legs, particularly left leg; described as weak. - Primary Location: Lower back and left leg - Radiation Areas: Left leg, especially the side and possibly the back of the leg. - Exacerbating Factors: Flexing backwards, movements, standing upright or walking - Relieving Factors: Minimal relief with activity modifications, medications, heat therapy - Functional Interference: Walking, cleaning, doing dishes, cooking, working, showering, and sleeping. Past Procedures: 05/06/24: Bilateral Diagnostic SIJ injections-100% pain relief for 6.5 hours 01/01/24: Bilateral Therapeutic SIJ injections-80% ongoing pain relief with activities, 100% pain relief at rest or sleep PRIOR: Patient presents today for follow-up to review recent sacroiliac joint injection x-ray results. She continues to endorse low back pain with radiation to her hips and legs laterally with muscle spasms and pain in her buttocks. Xray findings showed moderate degenerative changes with sclerosis and narrowing in the bilateral sacroiliac joints. Patient reports strong family history of degenerative arthritis in her father and is concerned for inflammatory degenerative arthritis for herself. We will obtain baseline labs today and consider Rheumatology referral if indicated. In meantime, patient would like to proceed with therapeutic sacroiliac joint injections to alleviate her chronic daily low back pain and decrease regular NSAID use. She reports good tolerance with methocarbamol and diclofenac potassium without any side effects with partial and temporary pain relief. Denies any recent cough, cold, infection, fever, any significant changes in her medical history, medications or recent hospitalizations. PRIOR: Patient is a pleasant 38-year-old female with history of chronic low back pain and facet arthropathy presents today for initial evaluation of low back pain. Denies any recent or past trauma, injury, or falls. Patient denies any inciting events but reports occasional ?weird dreams and states she remembers jumping out of bed. Back pain is axial and also radiates to both legs intermittently without any specific dermatome. She reports left foot numbness and tingling without weakness or foot drop. Patient completed one session of physical therapy at [facility] after which her back pain significantly increased. She could not return to work due to exacerbation of pain and has been taken intermittent days of since unknown back injury on 10/02/23. 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 She reports increased pain with prolonged walking, standing, climbing stairs. Lumbar xray was done in [facility] and is noted below. Patient reports back pain affects her daily activities and functioning, mobility, sleep, and social interactions. She is interested in interventional treatments to address her low back pain as well as restart physical therapy to strengthen her core and reduced muscle spasms. Denies any fever, abdominal or groin pain, bladder or bowel dysfunction, or saddle anesthesia. Patient receives psychological counseling for depression and anxiety at the [facility]. She consumes 6 cups of coffee daily, rare beer consumption and vaping. Patient denies illicit drug use. Location: Lower back pain, intermittent bilateral radiculopathy Duration: Chronic pain for >10 years, worsening 10/02/23, no inciting events Characteristics of symptom or complaint: Throbbing, stabbing, sharp, tingling Aggravating or associated factors: Movement, walking, standing Relieving factors: Heat, gabapentin, cyclobenzaprine, Tylenol, Ibuprofen Treatment: PT- made pain worse after 1st session, chiropractor x5, TENS, massage Oswestry Low Back Disability Score=35 [facility] Medical History De Quervain's syndrome (tenosynovitis) Anxiety and depression Former smoker Hyperlipidemia Allergic rhinitis Panic disorder Fibromyalgia IUD (intrauterine device) in place Heart palpitations Family history of ovarian cancer Eczema Muscle spasm of back Low back pain Morbid obesity with BMI of 40.0-44.9, adult Insomnia Surgical History Hx of reduction mammoplasty (~2008) History of surgery on wrist History of wisdom tooth extraction History of hemorrhoidectomy History of lumpectomy of right breast (~2021) Social History Alcohol intake: current Alcohol intake frequency: holidays/special occasions only Alcohol type: beer Patient Tobacco Use Status: Never used Tobacco e-Cigarette/Vaping Use: Currently Using Current occupational status: employed 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 Alert and oriented. Mood and affect appropriate. Follows and participates in conversation appropriately. Respiratory effort is unlabored. No cough. Able to transition from sit to stand unassisted. Ambulates with bilaterally normal heel strike and toe off. General: Yes no CVA tenderness Back/Spine/Pelvis Other: Limited lumbar ROM due to pain. Lumbar flexion and extension reproduce mild-moderate pain. Demonstrates 5/5 strength of quadriceps bilaterally as well as flexion/dorsiflexion of bilateral feet against resistance. 2+ pedal pulses bilaterally. SLR test with dorsiflexion negative bilaterally. +2 patellar and achilles reflexes bilaterally. Facet loading test positive bilaterally, right>left. Addis sign, Terrence?s, Gaenslen, Pelvic compression and Stinchfield tests are positive bilaterally. No groin pain with I/E hip rotations. Valsalva maneuver negative. Back: no CVA tenderness Cervical Spine: cervical ROM normal, cervical muscular tenderness and No Cervical spine tenderness Thoracic/Lumbar Spine: thoracic and lumbar spine normal to inspection, No Thoracic/lumbar spine scar(s), Lasegue's sign negative, straight leg raise negative bilaterally, pain with thoraco-lumbar ROM, paraspinal muscle tenderness on the right greater than left, thoraco-lumbar ROM limited, No thoracic spinal tenderness and lumbar spinal tenderness (L4-S1) Pelvis: buttock tenderness bilaterally Sacroiliac joints: bilaterally tender to palpation Results Reviewed Results Reviewed: MR lumbar spine wo con 08/31/24 CLINICAL HISTORY: M47.817 - Spondylosis without myelopathy or radiculopathy, lumbosacral r... MR of the lumbar spine without contrast Comparison: None Findings: Normal alignment. Normal marrow signal. No cord expansion or abnormal signal intensity. The conus medullaris terminates at L1/L2, which is normal. 2 mm focus of increased signal on the T1 weighted images may indicate a fatty filum terminale (only well seen on series 9, image 10). There is edema in the subcutaneous fat. L1/L2: No disc herniation. No facet joint or ligamentum flavum hypertrophy. No central canal stenosis. No lateral recess stenosis. No foraminal stenosis. L2/L3: No disc herniation. No facet joint or ligamentum flavum hypertrophy. No central canal stenosis. No lateral recess stenosis. No foraminal stenosis. L3/L4: 2-3 mm broad-based disc bulge. Mild facet joint and ligamentum flavum hypertrophy. Mild central canal stenosis. Mild bilateral lateral recess stenosis. No foraminal stenosis. L4/L5: 2 mm broad-based disc bulge. Moderate facet joint and ligamentum flavum hypertrophy. Mild central canal stenosis. Moderate bilateral lateral recess stenosis. No foraminal stenosis. L5/S1: No disc herniation. Mild facet joint and ligamentum flavum hypertrophy. Pgwo-fy-iogozdey central canal stenosis; predominantly secondary to epidural lipomatosis. Epidural lipomatosis is present at the other levels, however is most prominent L5/S1. Mild bilateral lateral recess stenosis. No foraminal stenosis. Impression: No acute findings. [id number] multilevel degenerative change, detailed above. Focus of increased signal on the T1 weighted images which is only well seen on a single image could be fatty filum terminale. The spinal cord is not low-lying. XR SACROILIAC JOINTS 11/12/23 CLINICAL INFORMATION: Back pain unspecified. FINDINGS: IUD in the pelvis. Degenerative changes in the imaged lower lumbar spine. Degenerative changes with sclerosis and narrowing in the bilateral sacroiliac joints. IMPRESSION: Moderate degenerative changes with sclerosis and narrowing in the bilateral sacroiliac joints. Assessment & Plan Assessment & Plan (1) Low back pain: Code(s): M54.50 - Low back pain, unspecified Category: Medical (2) Lumbosacral spondylosis: Code(s): M47.817 - Spondylosis without myelopathy or radiculopathy, lumbosacral region Category: Medical (3) Spinal stenosis of lumbar region without neurogenic claudication: Code(s): M48.061 - Spinal stenosis, lumbar region without neurogenic claudication Category: Medical (4) Sacroiliac joint pain: Code(s): M53.3 - Sacrococcygeal disorders, not elsewhere classified Category: Medical (5) Lumbar radiculitis: Code(s): M54.16 - Radiculopathy, lumbar region Category: Medical Plan We discussed lumbar spine MRI imaging report today. Neurosurgical evaluation to address lumbar spinal stenosis related pain. Post-neurosurgical evaluation, diagnostic neural blocks for inset arthritis pain could be considered. The patient is also exploring insurance changes to potentially gain approval for sacroiliac joint nerve ablation or neuromodulation in the future. Current pharmacotherapy consists of ibuprofen, gabapentin, and methocarbamol. The patient is encouraged to incorporate physical therapy and adjust activities as needed to reduce pain impact on daily life. All questions and concerns have been answered and patient agreed with the plan. Follow up after Neurosurgery evaluation and sooner as needed. Patient was informed and verbally consented to the use of an ambient scribe for clinic note documentation during this visit. Orders: Referrals Neuro Spine Referral M48.061 - Spinal stenosis, lumbar region without neurogenic claudication, M54.50 - Low back pain, unspecified Medications: Discontinued diclofenac potassium Take it with food and full glass of water. Avoid other NSAIDs. Discontinued Reason: Patient Completed Course 50 mg PO BID PRN 60 tabs 0RF for pain M47.817 - Spondylosis without myelopathy or radiculopathy, lumbosacral region, M53.3 - Sacrococcygeal disorders, not elsewhere classified, M54.50 - Low back pain, unspecified Patient Instructions: - Schedule and attend a neurosurgical evaluation as discussed today. - Patient is exploring insurance options to access a wider range of treatment interventions. - Continue current medications: ibuprofen as needed, gabapentin, and methocarbamol. - Engage in daily physical activity within pain limits and consider physical therapy. - Refrain from activities that exacerbate pain and adjust daily routines as needed. - Follow up with me post-neurosurgical consult for further pain management discussion. Coding Level of Care Code Est Pt Level 4 (28597) Complex EM visit Add On G2211 Diagnoses Low back pain M54.50 Lumbosacral spondylosis M47.817 Spinal stenosis of lumbar region without neurogenic claudication M48.061 Sacroiliac joint pain M53.3 Lumbar radiculitis M54.16
[2024-09-15 14:56] VITALS: BP 162/91; PULSE 70; O2SAT 99; BMI 41.2
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
== END 2024-09-15 15:15 | disposition home or self-care (01) ==
LOC: HO.PMC 14:50
PROVIDERS: PCP Internal Medicine; Visit Provider Nurse Practitioner Family
DX: M54.50 Low back pain, unspecified (principal); M47.817 Spondylosis without myelopathy or radiculopathy, lumbosacral region; M48.061 Spinal stenosis, lumbar region without neurogenic claudication; M53.3 Sacrococcygeal disorders, not elsewhere classified; M54.16 Radiculopathy, lumbar region
CPT/HCPCS: 99214

== ENCOUNTER → 2024-09-15 14:50 | Outpatient (BNVA) | payer OTHER, SELFPAY | PROVIDERS: PCP Internal Medicine; Visit Provider Nurse Practitioner Family ==

== ENCOUNTER 2024-09-17 12:51 | Outpatient (AMB) | payer OTHER, SELFPAY ==
--- NOTE | 2024-09-17 12:56 | A.SPINEOV_ITS ---
Vital Signs 09/17/24 12:59 Height 5 ft 1 in Weight 218 lb BMI 41.2 Intake Visit Reasons: LBP Intake Note: Ms. Leong is here today c/o Low back pain that radiates down the legs. Online Merchant Required: No Allergies sertraline Allergy (Unknown, Verified 09/17/24 12:59) Diarrhea Physical Exam Vital Signs: BMI result Body Mass Index 41.2 Assessment & Plan Assessment & Plan (1) Spinal stenosis of lumbar region without neurogenic claudication: Code(s): M48.061 - Spinal stenosis, lumbar region without neurogenic claudication Category: Medical Plan Dear Theresa, Thank you for referring Althea to our office today. She is a pleasant 39-year-old female who comes in today with a chief complaint of primarily low back pain with occasional shooting pain down her bilateral lower extremities. She reports this has been ongoing since 10/02/2023. She denies any known inciting incident. She does report a long history of occasional low back pain for about 10 years before October of 2023, but states the pain was usually well mitigated with stretching and exercise. When describing her back pain today she runs her hands in an axial fashion across her low back. When describing the pain down her lower extremities she states it starts in her low back shoots over her lateral thighs and down to her lateral calves. She reports that her left leg is worse than the right. She does report intermittent numbness and tingling in her thighs which is associated with the pain. She states that sitting down helps to alleviate her pain, and that standing aggravates her pain. She has attempted physical therapy, health care facility administrator, and at-home stretching/exercise in an effort to help mitigate the pain. She has tried [id number] medications including Advil, Tylenol, lidocaine patches all without symptom relief. She has even attempted prescribed gabapentin and methocarbamol. She also has attempted SI joint injections with our colleagues in pain management but has some conflicting reports about total relief of pain. It appears she had previously reported to our colleagues that she had gained about 80-100% relief in the days after her injections, but she is now stating in office today that it was less than 50% overall relief. I did bring up this discrepancy to the patient who again reiterated that she got less than 50% relief from the SI joint injections. 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 Social hx: She denies any substance use, and did not report any nicotine use. Medications: See [employer] list. Allergies: Sertraline. Physical exam: The patient has 5/5 strength in her upper and lower extremities. She ambulates well and rises from a seated position without difficulty. She has some difficulty getting up onto the examination table, but was able to do so fairly quickly. She has no significant sensational deficits reported on exam. Her reflexes are 2+ intact diffusely. (-) bilateral straight leg raise, (-) clonus, (-) Bautista's, (-) Luciana's, (-) Addis finger test, (-) SI joint compression test, (-) Gaenslen's test. Imaging review: MRI of the lumbar spine completed here at [facility] shows no significant central canal impingement or neural foraminal st enosis. There is some straightening of the normal lumbar lordosis, but this is minimal. There is no subluxation or listhesis noted. The conus terminates at L1. Impression: Althea is a pleasant 39-year-old female comes in today for evaluation of longstanding low back pain that began to worsen in September of last year. The dermatomal distribution in which she describes her radicular pain does not match her MRI imaging. Her physical exam findings are not convincing for SI joint pathology, and her reported relief of pain from injections is conflicting. I do not believe that there is any specific target in which I could recommend surgery for pain relief. We recommend that she follow up with our colleagues in [facility] for diagnostic blocks for facet arthritis pain as described in their previous office note. Thank you for allowing us to care for your patient. The total time spent with this visit with this patient was 45 minutes reviewing history, physical exam, MRI imaging review, and implementation of treatment plan or further diagnostic testing Chano Chandra MD,PhD [facility] Coding Level of Care Code New Pt Level 4 (22596) Diagnoses Spinal stenosis of lumbar region without neurogenic claudication M48.061
[2024-09-17 12:59] VITALS: BMI 41.2
--- OUTSIDE RECORDS SUMMARY | 2024-09-17 15:14 | XMS_ITS | Clinical Summary ---
Author Organization [facility] [address] [place] [address] [address] [place] [address] Phone Care Team Providers Care Probate Clerk Name Role Phone Beltran Baez MD Primary Care Provider [phone] Allergies Active Allergy Reactions Criticality Noted Date Comments Sertraline Diarrhea 11/27/2023 Medications vortioxetine (TRINTELLIX) 10 mg tablet Take 1 tablet (10 mg total) by mouth. Active triamcinolone (KENALOG) 0.1 % cream APPLY TO ECZEMA ARMS TWICE DAILY FOR UP TO 10 DAYS WHEN NEEDED 09/28/19 24 Active loratadine 10 mg capsule Take [...] tablet (0.2 mg total) by mouth. 02/16/20 Active atorvastatin (LIPITOR) 40 mg tablet TAKE 1 TABLET(40 MG) BY MOUTH 1 TIME EACH DAY 90 tablet 09/03/19 Active diclofenac (VOLTAREN) 50 mg EC tablet Take 1 tablet (50 mg total) by mouth 2 (two) times a day if needed (pain). Do not crush, chew, or split. 28 tablet 1 09/17/19 Active cyclobenzaprin e (FLEXERIL) 5 mg tablet Take 1 tablet (5 mg total) by mouth at bedtime as needed for muscle spasms. 28 tablet 09/17/19 25 Active orlistat (XenicaL) 120 mg capsule Take 1 capsule (120 mg total) by mouth 3 (three) times a day with meals. 270 capsule 09/17/19 Active IBUPROFEN ORAL Take 1 tablet by mouth every 6 (six) hours if needed. 11/05/19 24 025 Discontinued methocarbamoL (ROBAXIN) 750 mg tablet Take 1 tablet (750 mg total) by mouth every 8 (eight) hours if needed. 11/12/19 24 025 Discontinued diclofenac (CATAFLAM) 50 mg tablet TAKE 1 TABLET BY MOUTH TWICE DAILY WITH FOOD AND FULL GLASS OF WATER NEEDED FOR PAIN. AVOID OTHER NSAIDS 11/12/19 24 025 Discontinued atorvastatin (LIPITOR) 40 mg tablet Take 1 [...] disorder 07/14/2014 Allergic rhinitis 11/09/2011 Hyperlipidemia 09/01/2009 Encounters Date Type Department Care Team Description 09/16/2024 3:00 PM EDT Office Visit Adult Medicine [address] [address] Beltran Baez MD Annual physical exam (Primary Dx); Chronic neck pain; Upper back pain; Obesity (BMI 30-39.9) from Last 3 Months Immunizations Name Administration Dates Next Due H1N1 Inj Preservative Free 07/30/2009 Influenza Quadravalent, MDCK , 0.5ml, preservative free (Flucelvax) 6mo and older 06/14/2023 Influenza trivalent, 0.5mL, preservative free (Fluarix; FluLaval; Fluzone) ages 6mo and older (Afluria) 3 years and older 03/14/2017,03/18/2014,03/27/2013,2010,03/02/2009 Influenza trivalent, MDCK, 0 .5mL, preservative free (Flucelvax) 6mo and older 09/16/2024 PPD Test 12/18/2014 Tdap Tetanus diptheria acell ular pertussis (Boostrix; Adacel) 7yo and older 04/25/2024,03/18/2014,07/02/2005 Surgical History Surgery Date Site/Laterality Comments BREAST REDUCTION PROCEDURE: LA BREAST REDUCTION; COMMENT: 2008 WRIST SURGERY PROCEDURE: HISTORICAL WRIST SURGERY; COMMENT: ganglion cyst WISDOM TOOTH EXTRACTION PROCEDURE: HISTORICAL WISDOM TEETH EXTRACTION HEMORRHOID SURGERY 2016 PROCEDURE: HISTORICAL HEMMORROIDECTOMY BREAST LUMPECTOMY 2021 Right PROCEDURE: HISTORICAL BREAST LUMPECTOMY Medical History Medical History Date Comments Anxiety DX:Anxiety; COMM ENT: Therapist and psychiatrist- Rosanna Leos at [facility] Elevated C-reactive protein (CRP) DX:Elevated C-reactive protein [...] Sign Reading Time Taken Comments Blood Pressure 120/78 09/16/2024 2:58 PM EDT Pulse 72 09/16/2024 2:58 PM EDT Temperature 36.7 ??C (98 ??F) 09/16/2024 2:58 PM EDT Respiratory Rate 12 09/16/2024 2:58 PM EDT Oxygen Saturation - - Inhaled Oxygen Concentration - - Weight 98.4 kg (217 lb) 09/16/2024 2:58 PM EDT Height 154.9 cm (5' 1 ) 09/16/2024 2:58 PM EDT Body Mass Index 41 09/16/2024 2:58 PM EDT Plan of Treatment Upcoming Encounters Date Type Department Care Team (Late st Contact Info) Description 12/18/2024 9:30 AM EDT Office Visit Adult Medicine [facility] [address] [place] [address] Beltran Baez MD [address] [place] [address] Health Maintenance Due Date Last Done Comments Breast Cancer Screening 05/08/2025 05/08/2023, 08/01 COVID-19 Vaccine ( season) 2025 09/28/2020, 09/07/2020 Postponed from 03/02/2024 (Patient Refused) HIV Screening 07/02/2025 Postponed from 05/31/2022 (Patient Refused) Hepatitis B Vaccines (1 of 3 - 19+ 3-dose series) 07/02/2025 Postponed from 2002 (Patient Refused) Hepatitis C Screening 07/02/2025 Postpo oliver from 05/31/2022 (Patient Refused) Depression Screening 09/16/2025 09/16/2024 Social Influencers of Health Screening 09/16/2025 09/16/2024 Cervical Cancer Screening: HPV 08/30/2028 09/16/2024 Cholesterol Screening (Lipid Panel) 09/16/2029 09/16/2024, 04/28/2024, 04/28/2024, Additional history exists DTaP,Tdap,and Td Vaccines (4 - Td or Tdap) 04/25/2034 04/25/2024, 03/18/2014, 07/02/2005 Influenza Vaccine Completed 09/16/2024, , 03/14/2017, Additional history exists HIB Vaccines Aged Out No longer eligi [...] Procedure Name Priority Date/Time Associated Diagnosis Comments BILIRUBIN DUPLICATE PROCEDURE TO ORDER Routine 09/16/2024 2:47 PM EDT Hyperlipidemia, unspecified hyperlipidemia type LIPID PANEL WITH REFLEX TO DIRECT LDL Routine 09/16/2024 2:47 PM EDT Mixed hyperlipidemia COMPREHENSIVE METABOLIC PANEL Routine 09/16/2024 2:47 PM EDT Mixed hyperlipidemia IRON AND TIBC Routine 09/16/2024 2:47 PM EDT Iron deficiency EXTERNAL MRI REPORT Routine 09/02/2024 1 1:22 AM EST SCREENING MAMMOGRAPHY BI 2-VIEW BREAST INC CAD Routine 05/08/2023 3:27 PM EST Encounter for screening mammogram for malignant neoplasm of breast from Last 3 Months or Most Recently Relevant to Health Maintenance Results * Bilirubin duplicate procedure to order (09/16/2024 2:47 PM EDT) Total Bilirubin 0.4 0.0 - 1.4 mg/dL LAB CHEMISTRY METHOD 09/16/2024 5:20 PM EDT [facility] Bilirubin, Direct <0.1 0.0 - 0.3 mg/dL LAB CHEMISTRY METHOD 09/16/2024 5:20 PM EDT [facility] Bilirubin, Indirect LAB CHEMISTRY METHOD 09/16/2024 5:20 PM EDT [facility] Comment:Unable to calculate Indirect Bilirubin. Blood Venous blood specimen / Unknown Venipuncture / Unknown 09/16/2024 2:47 PM EDT 09/16/2024 2:47 PM EDT us Beltran Baez MD LAB BLOOD ORDERABLES Final Result [facility] [address] [place] [address], [place] [phone] * (ABNORMAL) Lipid panel with reflex to direct LDL (09/16/2024 2:47 PM EDT) Cholesterol 180 0 - 200 mg/dL LAB CHEMISTRY METHOD 09/16/2024 5:20 PM EDT [facility] Triglycerides 198(H) 0 - 150 mg/dL LAB CHEMISTRY METHOD 09/16/2024 5:20 PM EDT [facility] HDL 45 >=40 mg/dL LAB CHEMISTRY METHOD 09/16/2024 5:20 PM EDT [facility] LDL Calculated 95 0 - 100 mg/dL LAB CHEMISTRY METHOD 09/16/2024 5:20 PM EDT [facility] VLDL Cholesterol Kevin 39.6 mg/dL LAB CHEMISTRY METHOD 09/16/2024 5:20 PM EDT [facility] Non HDL Chol. (LDL+VLDL) 135 <145 mg/dL LAB CHEMISTRY METHOD 09/16/2024 5:20 PM EDT [facility] Chol/HDL Ratio 4.0 0.0 - 4.4 LAB CHEMISTRY METHOD 09/16/2024 5:20 PM EDT [facility] Blood Venous blood specimen / Unknown Venipuncture / Unknown 09/16/2024 2:47 PM EDT 09/16/2024 2:47 PM EDT us Beltran Baez MD LAB BLOOD ORDERABLES Final Result [facility] [address] [place] [address], [place] [phone] * (ABNORMAL) Iron and TIBC (09/16/2024 2:47 PM EDT) Iron 50 40 - 150 mcg/dL LAB CHEMISTRY METHOD 09/16/2024 5:20 PM EDT [facility] TIBC 415 250 - 450 mcg/dL LAB CHEMISTRY METHOD 09/16/2024 5:[address] [facility] Iron Saturation 12(L) 15 - 50 % LAB CHEMISTRY METHOD 09/16/2024 5:[address] [facility] Blood Venous blood specimen / Unknown Venipuncture / Unknown 09/16/2024 2:47 PM EDT 09/16/2024 2:47 PM EDT us Beltran Baez MD LAB BLOOD ORDERABLES Final Result [facility] [address] [place] [address], * Comprehensive metabolic panel (09/16/2024 2:47 PM EDT) Sodium 137 133 - 145 mmol/L LAB CHEMISTRY METHOD 09/16/2024 5:[address] [facility] Potassium 4.4 3.5 - 5.5 mmol/L LAB CHEMISTRY METHOD 09/16/2024 5:[address] [facility] Chloride 103 96 - 110 mmol/L LAB CHEMISTRY METHOD 09/16/2024 5:[address] [facility] CO2 29 21 - 32 mmol/L LAB CHEMISTRY METHOD 09/16/2024 5:[address] [facility] Anion Gap 5 3 - 11 LAB CHEMISTRY METHOD 09/16/2024 5:[address] [facility] Glucose 89 70 - 100 mg/dL LAB CHEMISTRY METHOD 09/16/2024 5:[address] [facility] BUN 10 5 - 25 mg/dL LAB CHEMISTRY METHOD 09/16/2024 5:[address] [facility] Creatinine 0.94 0.50 - 1.10 mg/dL LAB CHEMISTRY METHOD 09/16/2024 5:[address] [facility] eGFR 78 >=60 mL/min/1. 73m2 LAB CHEMISTRY METHOD 09/16/2024 5:20 PM EDT [facility] Comment:Calculation based on the??Chronic Kidney Disease Epidemiology Collaboration (CKD-EPI) equation refit??without adjustment for race. BUN/Creatinine Ratio 10.6 LAB CHEMISTRY METHOD 09/16/2024 5:20 PM EDT [facility] Calcium 10.0 8.5 - 10.5 mg/dL LAB CHEMISTRY [facility] (SGOT) 22 10 - 42 unit/L LAB CHEMISTRY METHOD 09/16/2024 5:[address] [facility] ALT (SGPT) 32 10 - 60 unit/L LAB CHEMISTRY METHOD 09/16/2024 5:[address] [facility] Alkaline Phosphatase 73 42 - 121 unit/L LAB CHEMISTRY METHOD 09/16/2024 5:[address] [facility] Total Protein 6.9 6.0 - 8.0 g/dL LAB CHEMISTRY METHOD 09/16/2024 5:[address] [facility] Albumin 4.1 3.2 - 5.0 g/dL LAB CHEMISTRY METHOD 09/16/2024 5:[address] [facility] Total Bilirubin 0.4 0.0 - 1.4 mg/dL LAB CHEMISTRY METHOD 09/16/2024 5:[address] [facility] Blood Venous blood specimen / Unknown Venipuncture / Unknown 09/16/2024 2:47 PM EDT 09/16/2024 2:47 PM EDT us Beltran Baez MD LAB BLOOD ORDERABLES Final Result [facility] [address] [place] [address], * External MRI Report (09/02/2024 11:22 AM EST) Anatomical Region Laterality Modality Magnetic Resonan ce Historical Provider IMG MRI PROCEDURES Final Result * SCREENING MAMMOGRAPHY [...] malignancy. BI-RADS 1 - negative Susie Harman CNM IMG XR PROCEDURES Final Result from Last 3 Months or Most Recently Relevant to Health Maintenance Insurance [facility] [employer] Care Teams Probate Clerk Relationship Specialty Start Date End Date Beltran Baez MD [address] [facility] [place] [address] PCP - General 07/26/22
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
== END 2024-09-17 13:27 | disposition home or self-care (01) ==
LOC: HO.HNS 12:52
PROVIDERS: PCP Internal Medicine; Referring Provider Nurse Practitioner Family; Visit Provider Physician Assistant
DX: M48.061 Spinal stenosis, lumbar region without neurogenic claudication (principal)
CPT/HCPCS: 99204

== ENCOUNTER → 2024-09-17 12:51 | Outpatient (BNVA) | payer OTHER, SELFPAY | PROVIDERS: PCP Internal Medicine; Referring Provider Nurse Practitioner Family; Visit Provider Physician Assistant ==

== ENCOUNTER 2024-09-25 08:19 | Outpatient (AMB) | payer OTHER, SELFPAY ==
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
[2024-09-25 08:23] VITALS: BMI 41.2
== END 2024-09-25 09:15 | disposition home or self-care (01) ==
LOC: HO.HOS 08:20
PROVIDERS: PCP Internal Medicine; Visit Provider Physical Medicine & Rehabilitation
DX: S16.1XXA Strain of muscle, fascia and tendon at neck level, initial encounter (principal); M79.18 Myalgia, other site
CPT/HCPCS: 99204

== ENCOUNTER 2024-11-07 09:42 | Outpatient (AMB) | payer OTHER, SELFPAY ==
[2024-11-07 09:55] VITALS: BMI 41.2
--- NOTE | 2024-11-07 09:55 | A.OFFVIS_ITS ---
Vital Signs 11/07/24 09:55 Height 5 ft 1 in Weight 218 lb BMI 41.2 Intake Visit Reasons: Trigger point inject #1 and MRI rev Intake Note: Arcadio 39 yr old female presents today for her follow up visit for her Cervical strain trigger injection #1 . Allergies sertraline Adverse Reaction (Unknown, Verified 11/07/24 09:56) Diarrhea Medication List - Last Reconciled 11/07/24 by France Brunner MD alprazolam 1 mg PO QID PRN atorvastatin 10 mg PO DAILY back brace As directed bupropion HCl XL 150 mg PO QAM bupropion HCl XL 300 mg PO DAILY clonidine HCl 0.2 mg PO DAILY diclofenac potassium 50 mg PO DAILY fenofibrate nanocrystallized mg PO fluocinonide 0.05% 1 appl topical BID gabapentin 2,000 mg PO DAILY ibuprofen mg PO lorazepam (Ativan) 1 mg PO ONCE methocarbamol 750 mg PO Q8H PRN vortioxetine (Trintellix) 20 mg PO DAILY PFSH Medical History De Quervain's syndrome (tenosynovitis) Anxiety and depression Former smoker Hyperlipidemia Allergic rhinitis Panic disorder Fibromyalgia IUD (intrauterine device) in place Heart palpitations Family history of ovarian cancer Eczema Muscle spasm of back Low back pain Morbid obesity with BMI of 40.0-44.9, adult Insomnia Surgical History Hx of reduction mammoplasty (~2008) History of surgery on wrist History of wisdom tooth extraction History of hemorrhoidectomy History of lumpectomy of right breast (~2021) Social History Alcohol intake: current Alcohol intake frequency: holidays/special occasions only Alcohol type: beer Patient Tobacco Use Status: Never used Tobacco e-Cigarette/Vaping Use: Currently Using Current occupational status: employed 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 Consent obtained. Trigger points palpated, 2 on right upper trapezius, 1 on ri ght rhomboids. Needling performed with gauge 27 needle, subsequently injecting 1 ml of 2% Lidocaine on each site, total of 3 mL. Patient tolerated procedure well. Post-injection instructions given. [id number] Point Injection 3 or more All charges added?: Procedure code (CPT) selection complete Assessment & Plan Assessment & Plan (1) Myofascial pain: Code(s): M79.18 - Myalgia, other site Category: Medical Plan Tolerated procedure well. Assessment and plan discussed with patient, and patient was agreeable. All questions were answered thoroughly. France Brunner MD, GRAHAM Board Certified, [place] [employer] and Rehabilitation (ABPMR) Board Certified, [place] [employer] Electrodiagnostic [employer] (ABEM) Orders: Orders AMB Trigger Point Injection Today M79.18 - Myalgia, other site Coding Level of Care Code Procedure Only Diagnoses Myofascial pain M79.18 CPT Codes Therapeutic Injection - Ther Injection 2: [id number] Point Injection 3 or more ([id number])
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
== END 2024-11-07 09:57 | disposition home or self-care (01) ==
LOC: HO.HOS 09:43
PROVIDERS: PCP Internal Medicine; Visit Provider Physical Medicine & Rehabilitation
DX: M79.18 Myalgia, other site (principal); M54.2 Cervicalgia
CPT/HCPCS: 20553

== ENCOUNTER → 2024-11-07 09:42 | Outpatient (BNVA) | payer OTHER, SELFPAY | PROVIDERS: PCP Internal Medicine; Visit Provider Physical Medicine & Rehabilitation | DX: M79.18 Myalgia, other site (principal) | CPT/HCPCS: 20553; J2003 ==

== ENCOUNTER 2024-11-11 06:17 | Outpatient (REF) | payer OTHER, SELFPAY ==
--- NOTE | ~2024-11-11 | FL_ITS ---
EXAMINATION: FL GUIDANCE ONLY HISTORY: M47.817 - Spondylosis without myelopathy or radiculopathy, lumbosacral r... COMPARISON: None available. TECHNIQUE: Fluoroscopy time: 0.6 minutes. Cumulative Dose: 10.6 mGy. DAP: 0.184 mGym2 Images: 6. FINDINGS: Fluoroscopic spot films of the lumbosacral junction in the AP projection demonstrate needles and contrast material in the regions of the bilateral L3-4, L4-5, and L5-S1 facet joints. FL/FL guidance in treatment room IMPRESSION: Fluoroscopy during procedure. Please see procedure report for additional information. Electronically signed by: Scooter Peoples MD 11/11/2024 01:05 PM EDT
--- OUTSIDE RECORDS SUMMARY | 2024-11-11 06:19 | XMS_ITS | Clinical Summary ---
Author Organization [facility] [address] [place] [address] Address [address] [place] [address] Phone Care Team Providers Care Director Child Abuse Therapy Name Role Phone Beltran Baez MD Primary Care Provider [phone]- [phone] Allergies Active Allergy Reactions Criticality Noted Date [...] (BMI) of 40.0 to 44.9 in adult ([facility] V24, [facility] V28) 04/07/2021 Fibromyalgia 08/31/2017 Panic disorder 07/14/2014 Allergic rhinitis 11/09/2011 Hyperlipidemia 09/01/2009 Encounters Date Type Department Care Team Description 10/09/2024 4:47 PM EDT - 10/09/2024 11:59 PM EDT Hospital Encounter Radiology Department - [address] [address] Upper back pain Discharge Disposition: Home or Self Care 10/09/2024 4:45 PM EDT - 10/09/2024 11:59 PM EDT Hospital Encounter Radiology Department - [address] [address] Neck pain Discharge Disposition: Home or Self Care 09/18/2024 Telephone Adult Medicine [address] [phone] Beltran Baez MD prior auth for medication 09/16/2024 3:00 PM EDT Office Visit Adult Medicine [address] [phone] Beltran Baez MD Annual physical exam (Primary [...] Surgery Date Site/Laterality Comments BREAST REDUCTION PROCEDURE: IN BREAST REDUCTION; COMMENT: 2008 WRIST SURGERY PROCEDURE: HISTORICAL WRIST SURGERY; COMMENT: ganglion cyst WISDOM TOOTH EXTRACTION PROCEDURE: HISTORICAL WISDOM TEETH EXTRACTION HEMORRHOID SURGERY 2016 PROCEDURE: HISTORICAL HEMMORROIDECTOMY BREAST LUMPECTOMY 2021 Right PROCEDURE: HISTORICAL BREAST LUMPECTOMY Medical History Medical History Date Comments Anxiety DX:Anxiety; COMM ENT: Therapist and psychiatrist- Rosanna Leos at [facility] Elevated C-reactive protein (CRP) DX:Elevated C-reactive [...] 9:30 AM EDT Office Visit Adult Medicine [facility] [address] [place] [address] Beltran Baez MD [address] [place] [address] Health Maintenance Due Date Last Done Comments [...] changes. ??No cord signal abnormality. POS - [id number] -------- FINAL REPORT -------- Dictated By: Ivory Vernon Dictated Date: 10/10/2024 11:06 ET Assigned Physician: Ivory Vernon Reviewed and Electronically Signed By: Ivory Vernon Signed Date: 10/12/2024 20:47 ET Workstation ID: [id number] Transcribed By: Self Edit Transcribed Date: 10/10/2024 [...] signal abnormality detected. Conus medullaris terminates at [id number] is within normal limits. Vertebral body heights [...] changes. No cord signal abnormality. POS - [id number] -------- FINAL REPORT -------- Dictated By: Ivory Vernon Dictated Date: 10/10/2024 11:06 ET Assigned Physician: Ivory Vernon Reviewed and Electronically Signed By: Ivory Vernon Signed Date: 10/12/2024 20:47 ET Workstation ID: [id number] Transcribed By: Self Edit Transcribed Date: 10/10/2024 [...] canal stenosis at any level. POS - [id number] -------- FINAL REPORT -------- Dictated By: Ivory Vernon Dictated Date: 10/10/2024 08:58 ET Assigned Physician: Ivory Vernon Reviewed and Electronically Signed By: Ivory Vernon Signed Date: 10/12/2024 20:48 ET Workstation ID: [id number] Transcribed By: Self Edit Transcribed Date: 10/10/2024 [...] spinal canal stenosis at anylevel. POS - [id number] -------- FINAL REPORT -------- Dictated By: Ivory Vernon Dictated Date: 10/10/2024 08:58 ET Assigned Physician: Ivory Vernon Reviewed and Electronically Signed By: Ivory Vernon Signed Date: 10/12/2024 20:48 ET Workstation ID: [id number] Transcribed By: Self Edit Transcribed Date: 10/10/2024 09:38 ET Beltran Baez MD IMG MRI PROCEDURES Final Re sult * Bilirubin duplicate procedure to order (09/16/2024 2:47 PM EDT) Total Bilirubin 0.4 0.0 - 1.4 mg/dL LAB CHEMISTRY METHOD 09/16/2024 5:20 PM EDT [facility] Bilirubin, Direct <0.1 0.0 - 0.3 mg/dL LAB CHEMISTRY METHOD 09/16/2024 5:20 PM EDT [facility] Bilirubin, Indirect LAB CHEMISTRY METHOD 09/16/2024 5:20 PM EDT [facility] Comment:Unable to calculate Indirect Bilirubin. Blood Venous blood specimen / Unknown Venipuncture / Unknown 09/16/2024 2:47 PM EDT 09/16/2024 2:47 PM EDT Beltran Baez MD LAB BLOOD ORDERABLES Final Result [facility] [address] [place] [address], [place] [phone] * (ABNORMAL) Lipid panel with reflex to direct LDL (09/16/2024 2:47 PM EDT) Cholesterol 180 0 - 200 mg/dL LAB CHEMISTRY METHOD 09/16/2024 5:20 PM EDT [facility] Triglycerides 198(H) 0 - 150 mg/dL LAB CHEMISTRY METHOD 09/16/2024 5:20 PM EDT [facility] HDL 45 >=40 mg/dL LAB CHEMISTRY METHOD 09/16/2024 5:20 PM EDT [facility] LDL Calculated 95 0 - 100 mg/dL LAB CHEMISTRY METHOD 09/16/2024 5:20 PM EDT [facility] VLDL Cholesterol Kevin 39.6 mg/dL LAB CHEMISTRY METHOD 09/16/2024 5:20 PM EDT [facility] Non HDL Chol. (LDL+VLDL) 135 <145 mg/dL LAB CHEMISTRY METHOD 09/16/2024 5:20 PM EDT [facility] Chol/HDL Ratio 4.0 0.0 - 4.4 LAB CHEMISTRY METHOD 09/16/2024 5:20 PM EDT [facility] Blood Venous blood specimen / Unknown Venipuncture / Unknown 09/16/2024 2:47 PM EDT 09/16/2024 2:47 PM EDT us Beltran Baez MD LAB BLOOD ORDERABLES Final Result Performing Organization Address City/[facility]/ZIP Co de Phone Number [facility] [address] [place] [address], [place] [phone] * (ABNORMAL) Iron and TIBC (09/16/2024 2:47 PM EDT) Iron 50 40 - 150 mcg/dL LAB CHEMISTRY METHOD 09/16/2024 5:20 PM EDT [facility] TIBC 415 250 - 450 mcg/dL LAB CHEMISTRY METHOD 09/16/2024 5:20 PM EDT [facility] Iron Saturation 12(L) 15 - 50 % LAB CHEMISTRY METHOD 09/16/2024 5:20 PM EDT [facility] Blood Venous blood specimen / Unknown Venipuncture / Unknown 09/16/2024 2:47 PM EDT 09/16/2024 2:47 PM EDT Beltran Baez MD LAB BLOOD ORDERABLES Final Result [facility] [address] [place] [address], [place] [phone] * Comprehensive metabolic panel (09/16/2024 2:47 PM EDT) Sodium 137 133 - 145 mmol/L LAB CHEMISTRY METHOD 09/16/2024 5:20 PM [facility] Potassium 4.4 3.5 - 5.5 mmol/L LAB CHEMISTRY METHOD 09/16/2024 5:20 PM [facility] Chloride 103 96 - 110 mmol/L LAB CHEMISTRY METHOD 09/16/2024 5:20 PM [facility] CO2 29 21 - 32 mmol/L LAB CHEMISTRY METHOD 09/16/2024 5:20 PM [facility] Anion Gap 5 3 - 11 LAB CHEMISTRY METHOD 09/16/2024 5:20 PM [facility] Glucose 89 70 - 100 mg/dL LAB CHEMISTRY METHOD 09/16/2024 5:20 PM [facility] BUN 10 5 - 25 mg/dL LAB CHEMISTRY METHOD 09/16/2024 5:20 PM [facility] Creatinine 0.94 0.50 - 1.10 mg/dL LAB CHEMISTRY METHOD 09/16/2024 5:20 PM [facility] eGFR 78 >=60 mL/min/1. 73m2 LAB CHEMISTRY METHOD 09/16/2024 5:20 PM [facility] Comment:Calculation based on the??Chronic Kidney Disease Epidemiology Collaboration (CKD-EPI) equation refit??without adjustment for race. BUN/Creatinine Ratio 10.6 LAB CHEMISTRY METHOD 09/16/2024 5:20 PM [facility] Calcium 10.0 8.5 - 10.5 mg/dL LAB CHEMISTRY METHOD 09/16/2024 5:20 PM [facility] AST (SGOT) 22 10 - 42 unit/L LAB CHEMISTRY METHOD 09/16/2024 5:20 PM EDT [facility] ALT (SGPT) 32 10 - 60 unit/L LAB CHEMISTRY METHOD 09/16/2024 5:20 PM EDT [facility] Alkaline Phosphatase 73 42 - 121 unit/L LAB CHEMISTRY METHOD 09/16/2024 5:20 PM EDT [facility] Total Protein 6.9 6.0 - 8.0 g/dL LAB CHEMISTRY METHOD 09/16/2024 5:20 PM EDT [facility] Albumin 4.1 3.2 - 5.0 g/dL LAB CHEMISTRY METHOD 09/16/2024 5:20 PM EDT [facility] Total Bilirubin 0.4 0.0 - 1.4 mg/dL LAB CHEMISTRY METHOD 09/16/2024 5:20 PM EDT [facility] Blood Venous blood specimen / Unknown Venipuncture / Unknown 09/16/2024 2:47 PM EDT 09/16/2024 2:47 PM EDT Beltran Baez MD LAB BLOOD ORDERABLES Final Result [facility] [address] [place] [address], * External MRI Report (09/02/2024 11:22 AM [...] malignancy. BI-RADS 1 - negative Susie Harman [facility] IMG XR PROCEDURES Final Result from Last 3 Months or Most Recently Relevant to Health Maintenance Insurance [facility] [employer] Care Teams Director Child Abuse Therapy Relationship Specialty Start Date End Date Beltran Baez MD [address] [place] [address] PCP - General 07/26/22
== END 2024-11-11 06:18 | disposition home or self-care (01) ==
LOC: CF 06:17
PROVIDERS: Visit Provider Anesthesiology
DX: M47.817 Spondylosis without myelopathy or radiculopathy, lumbosacral region (principal)
CPT/HCPCS: 64493; 64494; J2003; J2795; Q9967

== ENCOUNTER 2024-11-11 09:33 | Outpatient (AMB) | payer OTHER, SELFPAY ==
[2024-11-11 09:37] VITALS: BP 110/78; PULSE 81; RESP 16; O2SAT 99
--- NOTE | 2024-11-11 09:37 | MHC.OFFVIS ---
Vital Signs 11/11/24 09:37 11/11/24 10:00 BP 110/78 120/68 Blood Pressure Location Lt brachial Lt brachial Position Sitting Sitting Respiration 16 16 Pulse 81 62 Pulse Source Pulse Oximeter Pulse Oximeter Pulse Oximetry (%) 99 99 Oxygen Delivery Method Room Air Room Air Intake Visit Reasons: BILATERAL DX L3, L4, DRL5 MBB/ATIVIAN REQUESTED Slot Floor Supervisor Required: No Allergies sertraline Adverse Reaction (Unknown, Verified 11/11/24 09:38) Diarrhea Medication List - Last Reconciled 11/11/24 by Fallon Joshi LPN alprazolam 1 mg PO QID PRN atorvastatin 10 mg PO DAILY back brace As directed bupropion HCl XL 150 mg PO QAM bupropion HCl XL 300 mg PO DAILY clonidine HCl 0.2 mg PO DAILY diclofenac potassium 50 mg PO DAILY fenofibrate nanocrystallized mg PO fluocinonide 0.05% 1 appl topical BID gabapentin 2,000 mg PO DAILY ibuprofen mg PO lorazepam (Ativan) 1 mg PO ONCE methocarbamol 750 mg PO Q8H PRN vortioxetine (Trintellix) 20 mg PO DAILY PFSH Medical History De Quervain's syndrome (tenosynovitis) Anxiety and depression Former smoker Hyperlipidemia Allergic rhinitis Panic disorder Fibromyalgia IUD (intrauterine device) in place Heart palpitations Family history of ovarian cancer Eczema Muscle spasm of back Low back pain Morbid obesity with BMI of 40.0-44.9, adult Insomnia Surgical History Hx of reduction mammoplasty (~2008) History of surgery on wrist History of wisdom tooth extraction History of hemorrhoidectomy History of lumpectomy of right breast (~2021) Social History Alcohol intake: current Alcohol intake frequency: holidays/special occasions only Alcohol type: beer Patient Tobacco Use Status: Never used Tobacco e-Cigarette/Vaping Use: Currently Using Current occupational status: employed 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 ? ?Informed consent was explained to the patient. All questions were explained and? answered.? The patient was taken inside the operating room where he was positioned prone on the operating table. Time-out was performed delineating correct site, side, the nature of the procedure, patient's allergy, . All operating room staff was participating in OR time-out procedure. ? ? The lower back was prepped with ChloraPrep and draped with sterile towels.? C-arm was brought over the operating field and sq picture of L4-, L5 vertebra and S1 AREA were delineated on the screen.? Point of interest were delineated as confluence of superior articular process of L4 and L5 vertebra bilaterally with corresponding transverse processes as well as confluence of the sacral alae bilaterally with superior articular process of S1.? The projection of the point of interest to the skin were injected with the small amount of local anesthetic lidocaine 2% mixed with ropivacaine 0.5% 1-1 approcimately 1 cc.? After that 22 gauge 3.5 inch spinal needle was driven sequentially to the points of interest in tunnel vision fashion. After needles gently contacted the bone at the point of interests the needle was injected with small amount of the contrast.? The injection of the contrast did not demonstrate any intravascular or intrathecal spread of the contrast.? After that injection of the? ropivacaine 0.5%-1cc was performed at each needle location.?After that the needles were removed and Bandaids were applied. ? Upon completion of the injections? needle was? removed and sterile Band-Aids were applied.? The patient tolerated procedure very well. Orders: Orders FL guidance in treatment room Today M47.817 - Spondylosis without myelopathy or radiculopathy, lumbosacral region Medications: New lorazepam (Ativan) Take 30 minutes prior to arrival to procedure 1 mg PO ONCE 1 tab 0RF anxiety Coding Level of Care Code Procedure Only Diagnoses Spondylosis of lumbar region without myelopathy or radiculopathy M47.816
[2024-11-11 10:00] VITALS: BP 120/68; PULSE 62; RESP 16; O2SAT 99
--- OUTSIDE RECORDS SUMMARY | 2024-11-11 10:10 | XMS_ITS | Clinical Summary ---
Author Organization [facility] [address] [place] [address] Address [address] [place] [address] Phone Care Team Providers Care Trimmer And Borer Machine Operator Name Role Phone Beltran Baez MD Primary Care Provider [phone]- [phone] Allergies Active Allergy Reactions Criticality Noted Date [...] (BMI) of 40.0 to 44.9 in adult ([facility] V24, [facility] V28) 04/07/2021 Fibromyalgia 08/31/2017 Panic disorder 07/14/2014 Allergic rhinitis 11/09/2011 Hyperlipidemia 09/01/2009 Encounters Date Type Department Care Team Description 10/09/2024 4:47 PM EDT - 10/09/2024 11:59 PM EDT Hospital Encounter Radiology Department - [address] [address] Upper back pain Discharge Disposition: Home or Self Care 10/09/2024 4:45 PM EDT - 10/09/2024 11:59 PM EDT Hospital Encounter Radiology Department - [address] [address] Neck pain Discharge Disposition: Home or Self Care 09/18/2024 Telephone Adult Medicine [address] [phone] Beltran Baez MD prior auth for medication 09/16/2024 3:00 PM EDT Office Visit Adult Medicine [address] [phone] Beltran Baez MD Annual physical exam (Primary [...] Surgery Date Site/Laterality Comments BREAST REDUCTION PROCEDURE: [place] BREAST REDUCTION; COMMENT: 2008 WRIST SURGERY PROCEDURE: HISTORICAL WRIST SURGERY; COMMENT: ganglion cyst WISDOM TOOTH EXTRACTION PROCEDURE: HISTORICAL WISDOM TEETH EXTRACTION HEMORRHOID SURGERY 2016 PROCEDURE: HISTORICAL HEMMORROIDECTOMY BREAST LUMPECTOMY 2021 Right PROCEDURE: HISTORICAL BREAST LUMPECTOMY Medical History Medical History Date Comments Anxiety DX:Anxiety; COMM ENT: Therapist and psychiatrist- Rosanna Leos at [facility] Elevated C-reactive protein (CRP) DX:Elevated C-reactive [...] 9:30 AM EDT Office Visit Adult Medicine [facility] [place] [place] [address] [place] [address] Beltran Baez MD [address] [place] [address] Health Maintenance Due Date Last Done Comments [...] changes. ??No cord signal abnormality. POS - [id number] -------- FINAL REPORT -------- Dictated By: Ivory Vernon Dictated Date: 10/10/2024 11:06 ET Assigned Physician: Ivory Vernon Reviewed and Electronically Signed By: Ivory Vernon Signed Date: 10/12/2024 20:47 ET Workstation ID: [id number] Transcribed By: Self Edit Transcribed Date: 10/10/2024 [...] signal abnormality detected. Conus medullaris terminates at [id number] is within normal limits. Vertebral body heights [...] changes. No cord signal abnormality. POS - [id number] -------- FINAL REPORT -------- Dictated By: Ivory Vernon Dictated Date: 10/10/2024 11:06 ET Assigned Physician: Ivory Vernon Reviewed and Electronically Signed By: Ivory Vernon Signed Date: 10/12/2024 20:47 ET Workstation ID: [id number] Transcribed By: Self Edit Transcribed Date: 10/10/2024 [...] canal stenosis at any level. POS - [id number] -------- FINAL REPORT -------- Dictated By: Ivory Vernon Dictated Date: 10/10/2024 08:58 ET Assigned Physician: Ivory Vernon Reviewed and Electronically Signed By: Ivory Vernon Signed Date: 10/12/2024 20:48 ET Workstation ID: [id number] Transcribed By: Self Edit Transcribed Date: 10/10/2024 [...] spinal canal stenosis at anylevel. POS - [id number] -------- FINAL REPORT -------- Dictated By: Ivory Vernon Dictated Date: 10/10/2024 08:58 ET Assigned Physician: Ivory Vernon Reviewed and Electronically Signed By: Ivory Vernon Signed Date: 10/12/2024 20:48 ET Workstation ID: [id number] Transcribed By: Self Edit Transcribed Date: 10/10/2024 [...] Final Result [facility] [address] [place] [address], [place] [phone] * (ABNORMAL) Lipid panel with reflex to [...] BLOOD ORDERABLES Final Result Performing Organization Address City/[facility]/ZIP Co de Phone Number [facility] [address] [place] [address], [place] [phone] * (ABNORMAL) Iron and TIBC (09/16/2024 2:47 PM EDT) Iron 50 40 - 150 mcg/dL LAB CHEMISTRY METHOD 09/16/2024 5:20 PM EDT [facility] TIBC 415 250 - 450 mcg/dL LAB CHEMISTRY METHOD 09/16/2024 5:20 PM EDT [facility] Iron Saturation 12(L) 15 - 50 % LAB CHEMISTRY METHOD 09/16/2024 5:20 PM EDT [facility] Blood Venous blood specimen / Unknown Venipuncture / Unknown 09/16/2024 2:47 PM EDT 09/16/2024 2:47 PM EDT Beltran Baez MD LAB BLOOD ORDERABLES Final Result [facility] [address] [place] [address], [place] [phone] * Comprehensive metabolic panel (09/16/2024 2:47 PM [...] 73m2 LAB CHEMISTRY METHOD 09/16/2024 5:[address] [facility] Comment:Calculation based on the??Chronic Kidney Disease Epidemiology Collaboration (CKD-EPI) equation refit??without adjustment for race. BUN/Creatinine Ratio 10.6 LAB CHEMISTRY METHOD 09/16/2024 5:[address] [facility] Calcium 10.0 8.5 - 10.5 mg/dL LAB CHEMISTRY METHOD 09/16/2024 5:[address] [facility] AST (SGOT) 22 10 - 42 unit/L LAB CHEMISTRY METHOD 09/16/2024 5:20 PM EDT [facility] ALT (SGPT) 32 10 - 60 unit/L LAB CHEMISTRY METHOD 09/16/2024 5:20 PM EDT [facility] Alkaline Phosphatase 73 42 - 121 unit/L LAB CHEMISTRY METHOD 09/16/2024 5:20 PM EDT [facility] Total Protein 6.9 6.0 - 8.0 g/dL LAB CHEMISTRY METHOD 09/16/2024 5:20 PM EDT [facility] Albumin 4.1 3.2 - 5.0 g/dL LAB CHEMISTRY METHOD 09/16/2024 5:20 PM EDT [facility] Total Bilirubin 0.4 0.0 - 1.4 mg/dL LAB CHEMISTRY METHOD 09/16/2024 5:20 PM EDT [facility] Blood Venous blood specimen / Unknown Venipuncture / Unknown 09/16/2024 2:47 PM EDT 09/16/2024 2:47 PM EDT Beltran Baez MD LAB BLOOD ORDERABLES Final Result [facility] [address] [place] [address], * External MRI Report (09/02/2024 11:22 AM [...] malignancy. 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
== END 2024-11-11 10:00 | disposition home or self-care (01) ==
LOC: HO.PMCPRC 09:33
PROVIDERS: PCP Internal Medicine; Visit Provider Anesthesiology
DX: M47.816 Spondylosis without myelopathy or radiculopathy, lumbar region (principal)
CPT/HCPCS: 64493; 64494

== ENCOUNTER 2024-11-18 14:35 | Outpatient (AMB) | payer OTHER, SELFPAY ==
[2024-11-18 14:40] VITALS: BP 140/95; PULSE 73; O2SAT 97; BMI 41.2
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
--- OUTSIDE RECORDS SUMMARY | 2024-11-18 15:58 | XMS_ITS | Clinical Summary ---
Author Organization [facility] [address] [place] [address] Address [address] [place] [address] Phone Care Team Providers Care Wireless Retail Manager Name Role Phone Beltran Baez MD Primary Care Provider [phone] Allergies Active Allergy Reactions Criticality Noted Date [...] (BMI) of 40.0 to 44.9 in adult ([facility] V24, [facility] V28) 04/07/2021 Fibromyalgia 08/31/2017 Panic disorder 07/14/2014 Allergic rhinitis 11/09/2011 Hyperlipidemia 09/01/2009 Encounters Date Type Department Care Team Description 10/09/2024 4:47 PM EDT - 10/09/2024 11:59 PM EDT Hospital Encounter Radiology Department - [address] [phone] Upper back pain Discharge Disposition: Home or Self Care 10/09/2024 4:45 PM EDT - 10/09/2024 11:59 PM EDT Hospital Encounter Radiology Department - [address] [phone] Neck pain Discharge Disposition: Home or Self Care 09/18/2024 Telephone Adult Medicine [address] [phone] Beltran Baez MD prior auth for medication 09/16/2024 3:00 PM EDT Office Visit Adult Medicine [address] [phone] Beltran Baez MD Annual physical exam (Primary [...] Surgery Date Site/Laterality Comments BREAST REDUCTION PROCEDURE: MO BREAST REDUCTION; COMMENT: 2008 WRIST SURGERY PROCEDURE: HISTORICAL WRIST SURGERY; COMMENT: ganglion cyst WISDOM TOOTH EXTRACTION PROCEDURE: HISTORICAL WISDOM TEETH EXTRACTION HEMORRHOID SURGERY 2016 PROCEDURE: HISTORICAL HEMMORROIDECTOMY BREAST LUMPECTOMY 2021 Right PROCEDURE: HISTORICAL BREAST LUMPECTOMY Medical History Medical History Date Comments Anxiety DX:Anxiety; COMM ENT: Therapist and psychiatrist- Rosanna Leos at [facility] Elevated C-reactive protein (CRP) DX:Elevated C-reactive protein [...] 9:30 AM EDT Office Visit [place] [facility] [address] [place] [address] Beltran Baez MD [address] [place] [address] Health Maintenance Due Date Last Done Comments [...] changes. ??No cord signal abnormality. POS - [id number] -------- FINAL REPORT -------- Dictated By: Ivory Vernon Dictated Date: 10/10/2024 11:06 ET Assigned Physician: Ivory Vernon Reviewed and Electronically Signed By: Ivory Vernon Signed Date: 10/12/2024 20:47 ET Workstation ID: [id number] Transcribed By: Self Edit Transcribed Date: 10/10/2024 [...] signal abnormality detected. Conus medullaris terminates at [id number] is within normal limits. Vertebral body heights [...] changes. No cord signal abnormality. POS - [id number] -------- FINAL REPORT -------- Dictated By: Ivory Vernon Dictated Date: 10/10/2024 11:06 ET Assigned Physician: Ivory Vernon Reviewed and Electronically Signed By: Ivory Vernon Signed Date: 10/12/2024 20:47 ET Workstation ID: [id number] Transcribed By: Self Edit Transcribed Date: 10/10/2024 [...] canal stenosis at any level. POS - [id number] -------- FINAL REPORT -------- Dictated By: Ivory Vernon Dictated Date: 10/10/2024 08:58 ET Assigned Physician: Ivory Vernon Reviewed and Electronically Signed By: Ivory Vernon Signed Date: 10/12/2024 20:48 ET Workstation ID: [id number] Transcribed By: Self Edit Transcribed Date: 10/10/2024 [...] spinal canal stenosis at anylevel. POS - [id number] -------- FINAL REPORT -------- Dictated By: Ivory Vernon Dictated Date: 10/10/2024 08:58 ET Assigned Physician: Ivory Vernon Reviewed and Electronically Signed By: Ivory Vernon Signed Date: 10/12/2024 20:48 ET Workstation ID: [id number] Transcribed By: Self Edit Transcribed Date: 10/10/2024 09:38 ET Beltran Baez MD IMG MRI PROCEDURES Final Re sult * Bilirubin duplicate procedure to order (09/16/2024 2:47 PM EDT) Total Bilirubin 0.4 0.0 - 1.4 mg/dL LAB CHEMISTRY METHOD 09/16/2024 5:20 PM EDT [facility] Bilirubin, Direct <0.1 0.0 - 0.3 mg/dL LAB CHEMISTRY METHOD 09/16/2024 5:20 PM EDT [facility] Bilirubin, Indirect LAB CHEMISTRY METHOD 09/16/2024 5:20 PM EDT [facility] Comment:Unable to calculate Indirect Bilirubin. Blood Venous blood specimen / Unknown Venipuncture / Unknown 09/16/2024 2:47 PM EDT 09/16/2024 2:47 PM EDT Beltran Baez MD LAB BLOOD ORDERABLES Final Result [facility] [address] [place] [address], [place] [phone] * (ABNORMAL) Lipid panel with reflex to direct LDL (09/16/2024 2:47 PM EDT) Cholesterol 180 0 - 200 mg/dL LAB CHEMISTRY METHOD 09/16/2024 5:20 PM EDT [facility] Triglycerides 198(H) 0 - 150 mg/dL LAB CHEMISTRY METHOD 09/16/2024 5:20 PM EDT [facility] HDL 45 >=40 mg/dL LAB CHEMISTRY METHOD 09/16/2024 5:20 PM EDT [facility] LDL Calculated 95 0 - 100 mg/dL LAB CHEMISTRY METHOD 09/16/2024 5:20 PM EDT [facility] VLDL Cholesterol Kevin 39.6 mg/dL LAB CHEMISTRY METHOD 09/16/2024 5:20 PM EDT [facility] Non HDL Chol. (LDL+VLDL) 135 <145 mg/dL LAB CHEMISTRY METHOD 09/16/2024 5:20 PM EDT [facility] Chol/HDL Ratio 4.0 0.0 - 4.4 LAB CHEMISTRY METHOD 09/16/2024 5:20 PM EDT [facility] Blood Venous blood specimen / Unknown Venipuncture / Unknown 09/16/2024 2:47 PM EDT 09/16/2024 2:47 PM EDT us Beltran Baez MD LAB BLOOD ORDERABLES Final Result Performing Organization Address City/[facility]/ZIP Co de Phone Number [facility] [address] [place] [address], [place] [phone] * (ABNORMAL) Iron and TIBC (09/16/2024 2:47 PM EDT) Iron 50 40 - 150 mcg/dL LAB CHEMISTRY METHOD 09/16/2024 5:20 PM EDT [facility] TIBC 415 250 - 450 mcg/dL LAB CHEMISTRY METHOD 09/16/2024 5:20 PM EDT [facility] Iron Saturation 12(L) 15 - 50 % LAB CHEMISTRY METHOD 09/16/2024 5:20 PM EDT [facility] Blood Venous blood specimen / Unknown Venipuncture / Unknown 09/16/2024 2:47 PM EDT 09/16/2024 2:47 PM EDT Beltran Baez MD LAB BLOOD ORDERABLES Final Result [facility] [address] [place] [address], [place] [phone] * Comprehensive metabolic panel (09/16/2024 2:47 PM EDT) Sodium 137 133 - 145 mmol/L LAB CHEMISTRY METHOD 09/16/2024 5:20 PM [facility] Potassium 4.4 3.5 - 5.5 mmol/L LAB CHEMISTRY METHOD 09/16/2024 5:20 PM [facility] Chloride 103 96 - 110 mmol/L LAB CHEMISTRY METHOD 09/16/2024 5:20 PM [facility] CO2 29 21 - 32 mmol/L LAB CHEMISTRY METHOD 09/16/2024 5:20 PM [facility] Anion Gap 5 3 - 11 LAB CHEMISTRY METHOD 09/16/2024 5:20 PM [facility] Glucose 89 70 - 100 mg/dL LAB CHEMISTRY METHOD 09/16/2024 5:20 PM [facility] BUN 10 5 - 25 mg/dL LAB CHEMISTRY METHOD 09/16/2024 5:20 PM [facility] Creatinine 0.94 0.50 - 1.10 mg/dL LAB CHEMISTRY METHOD 09/16/2024 5:20 PM [facility] eGFR 78 >=60 mL/min/1. 73m2 LAB CHEMISTRY METHOD 09/16/2024 5:20 PM [facility] Comment:Calculation based on the??Chronic Kidney Disease Epidemiology Collaboration (CKD-EPI) equation refit??without adjustment for race. BUN/Creatinine Ratio 10.6 LAB CHEMISTRY METHOD 09/16/2024 5:20 PM [facility] Calcium 10.0 8.5 - 10.5 mg/dL LAB CHEMISTRY METHOD 09/16/2024 5:20 PM [facility] AST (SGOT) 22 10 - 42 unit/L LAB CHEMISTRY METHOD 09/16/2024 5:20 PM EDT [facility] ALT (SGPT) 32 10 - 60 unit/L LAB CHEMISTRY METHOD 09/16/2024 5:20 PM EDT [facility] Alkaline Phosphatase 73 42 - 121 unit/L LAB CHEMISTRY METHOD 09/16/2024 5:20 PM EDT [facility] Total Protein 6.9 6.0 - 8.0 g/dL LAB CHEMISTRY METHOD 09/16/2024 5:20 PM EDT [facility] Albumin 4.1 3.2 - 5.0 g/dL LAB CHEMISTRY METHOD 09/16/2024 5:20 PM EDT [facility] Total Bilirubin 0.4 0.0 - 1.4 mg/dL LAB CHEMISTRY METHOD 09/16/2024 5:20 PM EDT [facility] Blood Venous blood specimen / Unknown Venipuncture / Unknown 09/16/2024 2:47 PM EDT 09/16/2024 2:47 PM EDT Beltran Baez MD LAB BLOOD ORDERABLES Final Result [facility] [address] [place] [address], * External MRI Report (09/02/2024 11:22 AM [...] malignancy. BI-RADS 1 - negative Susie Harman [facility] IMG XR PROCEDURES Final Result from Last 3 Months or Most Recently Relevant to Health Maintenance Insurance [facility] [employer] Care Teams Wireless Retail Manager Relationship Specialty Start Date End Date Beltran Baez MD [address] [place] [address] PCP - General 07/26/22
== END 2024-11-18 15:08 | disposition home or self-care (01) ==
LOC: HO.PMC 14:36
PROVIDERS: PCP Internal Medicine; Visit Provider Nurse Practitioner Family
DX: M53.3 Sacrococcygeal disorders, not elsewhere classified (principal); M46.1 Sacroiliitis, not elsewhere classified; M47.817 Spondylosis without myelopathy or radiculopathy, lumbosacral region; M54.50 Low back pain, unspecified; M62.830 Muscle spasm of back
CPT/HCPCS: 99214; G2211

== ENCOUNTER → 2024-11-18 14:35 | Outpatient (BNVA) | payer OTHER, SELFPAY | PROVIDERS: PCP Internal Medicine; Visit Provider Nurse Practitioner Family ==

== ENCOUNTER 2024-12-09 06:04 | Outpatient (REF) | payer OTHER, SELFPAY ==
--- NOTE | ~2024-12-09 | FL_ITS ---
EXAMINATION: FL GUIDANCE ONLY HISTORY: M53.3 - Sacrococcygeal disorders, not elsewhere classified COMPARISON: None available. TECHNIQUE: Fluoroscopy time: 0.2 minutes. Cumulative Dose: 3.89 mGy. DAP: 0.0437 mGym2 Images: 4. FINDINGS: Fluoroscopic spot films of the pelvis demonstrate needles and contrast material in the regions of the bilateral sacroiliac joints. FL/FL guidance in treatment room IMPRESSION: Fluoroscopy during procedure. Please see procedure report for additional information. Electronically signed by: Scooter Peoples MD 12/09/2024 09:43 AM EDT
--- OUTSIDE RECORDS SUMMARY | 2024-12-09 06:06 | XMS_ITS | Clinical Summary ---
Author Organization [facility] [address] [place] [address] Address [address] [place] [address] Phone Care Team Providers Care Rn Cvor Name Role Phone Beltran Baez MD Primary Care Provider [phone]- [phone] Allergies Active Allergy Reactions Criticality Noted Date [...] total) by mouth. 02/16/20 21 Active diclofenac (VOLTAREN) 50 mg EC tablet [...] not crush, chew, or split. 90 each 09/24/19 25 026 Active ascorbic acid (VITAMIN C) 500 mg tablet Take 1 tablet (500 mg total) by mouth 1 (one) time each day. 30 each 09/24/19 25 026 Active fenofibrate (TRICOR) 48 mg tablet TAKE 1 TABLET BY MOUTH DAILY 90 tablet 1 11/05/19 25 Active atorvastatin (LIPITOR) 40 mg tablet TAKE 1 TABLET(40 MG) BY MOUTH 1 TIME EACH DAY 90 tablet 12/06/19 25 Active atorvastatin (LIPITOR) 40 mg tablet TAKE 1 TABLET(40 MG) BY MOUTH 1 TIME EACH DAY 90 tablet 09/03/19 25 025 Discontinued Active Problems Problem Noted Date [...] (BMI) of 40.0 to 44.9 in adult ([facility] V24, [facility] V28) 04/07/2021 Fibromyalgia 08/31/2017 Panic disorder 07/14/2014 Allergic rhinitis 11/09/2011 Hyperlipidemia 09/01/2009 Encounters Date Type Department Care Team Description 10/09/2024 4:47 PM EDT - 10/09/2024 11:59 PM EDT Hospital Encounter Radiology Department - [address] [address] Upper back pain Discharge Disposition: Home or Self Care 10/09/2024 4:45 PM EDT - 10/09/2024 11:59 PM EDT Hospital Encounter Radiology Department - [address] [address] Neck pain Discharge Disposition: Home or Self Care 09/18/2024 Telephone Adult Medicine [address] [address] Beltran Baez MD prior auth for medication 09/16/2024 3:00 PM EDT Office Visit Adult Medicine [address] [address] Beltran Baez MD Annual physical exam (Primary [...] Surgery Date Site/Laterality Comments BREAST REDUCTION PROCEDURE: HI BREAST REDUCTION; COMMENT: 2008 WRIST SURGERY PROCEDURE: HISTORICAL WRIST SURGERY; COMMENT: ganglion cyst WISDOM TOOTH EXTRACTION PROCEDURE: HISTORICAL WISDOM TEETH EXTRACTION HEMORRHOID SURGERY 2016 PROCEDURE: HISTORICAL HEMMORROIDECTOMY BREAST LUMPECTOMY 2021 Right PROCEDURE: HISTORICAL BREAST LUMPECTOMY Medical History Medical History Date Comments Anxiety DX:Anxiety; COMM ENT: Therapist and psychiatrist- Rosanna Leos at [facility] Elevated C-reactive protein (CRP) DX:Elevated C-reactive [...] 9:30 AM EDT Office Visit Adult Medicine [facility] [address] [place] [address] Beltran Baez MD [address] [place] [address] Health Maintenance Due Date Last Done Comments [...] Routine 09/16/2024 2:47 PM EDT Iron deficiency SCREENING MAMMOGRAPHY BI 2-VIEW BREAST INC CAD [...] changes. ??No cord signal abnormality. POS - [id number] -------- FINAL REPORT -------- Dictated By: Ivory Vernon Dictated Date: 10/10/2024 11:06 ET Assigned Physician: Ivory Vernon Reviewed and Electronically Signed By: Ivory Vernon Signed Date: 10/12/2024 20:47 ET Workstation ID: [id number] Transcribed By: Self Edit Transcribed Date: 10/10/2024 [...] signal abnormality detected. Conus medullaris terminates at K2wzcsn is within normal limits. Vertebral body heights [...] changes. No cord signal abnormality. POS - [id number] -------- FINAL REPORT -------- Dictated By: Ivory Vernon Dictated Date: 10/10/2024 11:06 ET Assigned Physician: Ivory Vernon Reviewed and Electronically Signed By: Ivory Vernon Signed Date: 10/12/2024 20:47 ET Workstation ID: [id number] Transcribed By: Self Edit Transcribed Date: 10/10/2024 [...] canal stenosis at any level. POS - [id number] -------- FINAL REPORT -------- Dictated By: Ivory Vernon Dictated Date: 10/10/2024 08:58 ET Assigned Physician: Ivory Vernon Reviewed and Electronically Signed By: Ivory Vernon Signed Date: 10/12/2024 20:48 ET Workstation ID: [id number] Transcribed By: Self Edit Transcribed Date: 10/10/2024 [...] spinal canal stenosis at anylevel. POS - [id number] -------- FINAL REPORT -------- Dictated By: Ivory Vernon Dictated Date: 10/10/2024 08:58 ET Assigned Physician: Ivory Vernon Reviewed and Electronically Signed By: Ivory Vernon Signed Date: 10/12/2024 20:48 ET Workstation ID: [id number] Transcribed By: Self Edit Transcribed Date: 10/10/2024 09:38 ET Beltran Baez MD IMG MRI PROCEDURES Final Re sult * Bilirubin duplicate procedure to order (09/16/2024 2:47 PM EDT) Total Bilirubin 0.4 0.0 - 1.4 mg/dL LAB CHEMISTRY METHOD 09/16/2024 5:20 PM EDT [facility] Bilirubin, Direct <0.1 0.0 - 0.3 mg/dL LAB CHEMISTRY METHOD 09/16/2024 5:20 PM EDT [facility] Bilirubin, Indirect LAB CHEMISTRY METHOD 09/16/2024 5:20 PM EDT [facility] Comment:Unable to calculate Indirect Bilirubin. Blood Venous blood specimen / Unknown Venipuncture / Unknown 09/16/2024 2:47 PM EDT 09/16/2024 2:47 PM EDT Beltran Baez MD LAB BLOOD ORDERABLES Final Result [facility] [address] [place] [address], [place] [phone] * (ABNORMAL) Lipid panel with reflex to direct LDL (09/16/2024 2:47 PM EDT) Cholesterol 180 0 - 200 mg/dL LAB CHEMISTRY METHOD 09/16/2024 5:20 PM EDT [facility] Triglycerides 198(H) 0 - 150 mg/dL LAB CHEMISTRY METHOD 09/16/2024 5:20 PM EDT [facility] HDL 45 >=40 mg/dL LAB CHEMISTRY METHOD 09/16/2024 5:20 PM EDT [facility] LDL Calculated 95 0 - 100 mg/dL LAB CHEMISTRY METHOD 09/16/2024 5:20 PM EDT [facility] VLDL Cholesterol Kevin 39.6 mg/dL LAB CHEMISTRY METHOD 09/16/2024 5:20 PM EDT [facility] Non HDL Chol. (LDL+VLDL) 135 <145 mg/dL LAB CHEMISTRY METHOD 09/16/2024 5:20 PM EDT [facility] Chol/HDL Ratio 4.0 0.0 - 4.4 LAB CHEMISTRY METHOD 09/16/2024 5:20 PM EDT [facility] Blood Venous blood specimen / Unknown Venipuncture / Unknown 09/16/2024 2:47 PM EDT 09/16/2024 2:47 PM EDT Beltran Baez MD LAB BLOOD ORDERABLES Final Result Performing Organization Address [facility]/ZIP Co de Phone Number [facility] [address] [place] [address], [place] [phone] * (ABNORMAL) Iron and TIBC (09/16/2024 2:47 PM EDT) Iron 50 40 - 150 mcg/dL LAB CHEMISTRY METHOD 09/16/2024 5:20 PM EDT [facility] TIBC 415 250 - 450 mcg/dL LAB CHEMISTRY METHOD 09/16/2024 5:20 PM EDT [facility] Iron Saturation 12(L) 15 - 50 % LAB CHEMISTRY METHOD 09/16/2024 5:20 PM EDT [facility] Blood Venous blood specimen / Unknown Venipuncture / Unknown 09/16/2024 2:47 PM EDT 09/16/2024 2:47 PM EDT Beltran Baez MD LAB BLOOD ORDERABLES Final Result Performing Organization Address [facility]/ZIP Co de Phone Number [facility] [address] [place] [address], [place] [phone] * Comprehensive metabolic panel (09/16/2024 2:47 PM [...] LAB CHEMISTRY METHOD 09/16/2024 5:20 PM EDT [facility] Alkaline Phosphatase 73 42 - 121 unit/L LAB CHEMISTRY METHOD 09/16/2024 5:20 PM EDT [facility] Total Protein 6.9 6.0 - 8.0 g/dL LAB CHEMISTRY METHOD 09/16/2024 5:20 PM EDT [facility] Albumin 4.1 3.2 - 5.0 g/dL LAB CHEMISTRY METHOD 09/16/2024 5:20 PM EDT [facility] Total Bilirubin 0.4 0.0 - 1.4 mg/dL LAB CHEMISTRY METHOD 09/16/2024 5:20 PM EDT [facility] Blood Venous blood specimen / Unknown Venipuncture / Unknown 09/16/2024 2:47 PM EDT 09/16/2024 2:47 PM EDT us Beltran Baez MD LAB BLOOD ORDERABLES Final Result [facility] [address] [place] [address], * SCREENING MAMMOGRAPHY BI 2-VIEW BREAST INC [...] malignancy. BI-RADS 1 - negative Susie Harman [facility] IMG XR PROCEDURES Final Result from Last 3 Months or Most Recently Relevant to Health Maintenance Insurance [facility] [employer] Care Teams Rn Cvor Relationship Specialty Start Date End Date Beltran Baez MD [address] [place] [address] PCP - General 07/26/22
== END 2024-12-09 06:05 | disposition home or self-care (01) ==
LOC: CF 06:04
PROVIDERS: Visit Provider Anesthesiology
DX: M53.3 Sacrococcygeal disorders, not elsewhere classified (principal)
CPT/HCPCS: 27096; J2003; J2795; J3301; Q9967

== ENCOUNTER 2024-12-09 09:09 | Outpatient (AMB) | payer OTHER, SELFPAY ==
--- NOTE | 2024-12-09 09:13 | MHC.OFFVIS ---
Vital Signs 12/09/24 09:14 12/09/24 09:34 Weight 220 lb BP 129/73 123/76 Blood Pressure Location Lt brachial Lt brachial Position Sitting Sitting Respiration 18 18 Pulse 65 60 Pulse Source Pulse Oximeter Pulse Oximeter Pulse Oximetry (%) 100 100 Oxygen Delivery Method Room Air Room Air Intake Visit Reasons: BILATERAL THERAPEUTIC SIJ INJECTIONS Associate [employer] Required: No Allergies sertraline Adverse Reaction (Unknown, Verified 12/09/24 09:14) Diarrhea PFSH Medical History De Quervain's syndrome (tenosynovitis) Anxiety and depression Former smoker Hyperlipidemia Allergic rhinitis Panic disorder Fibromyalgia IUD (intrauterine device) in place Heart palpitations Family history of ovarian cancer Eczema Muscle spasm of back Low back pain Morbid obesity with BMI of 40.0-44.9, adult Insomnia Surgical History Hx of reduction mammoplasty (~2008) History of surgery on wrist History of wisdom tooth extraction History of hemorrhoidectomy History of lumpectomy of right breast (~2021) Social History Alcohol intake: current Alcohol intake frequency: holidays/special occasions only Alcohol type: beer Patient Tobacco Use Status: Never used Tobacco e-Cigarette/Vaping Use: Currently Using Current occupational status: employed 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 All questions about benefits and risks for the procedure were answered. Patient came to the operating room and was positioned prone on the operating table with the pillow under the abdomen. The lower back and buttocks of the patient were prepped with ChloraPrep prepped and draped with sterile utility towels.? Sterilely draped C-arm was brought over the operating field and sq picture of patient's pelvis was demonstrated on the screen.? For the right joint tilting C-arm contralateral to the site of the joint the most posterior portion of the joints was superimposed with anterior silhouette of the joint.? Skin was injected in the projection of the joint slightly medial to the location of the joint with 25 gauge 1/2 inch needle using local lidocaine 2% . After that 22 gauge 3 and 1/2 inch needle was driven to the right joint in tunnel vision fashion.? When needle entered the joint capsule injection of the contrast was performed demonstrating intra-articular and minimally periarticular spread of the contrast.? After that 4 cc. of ropivacaine 0.5% mixed with Kenalog 40 mg was injected in the joint. After that procedure was repeated on the left side in mirroring fashion. Total dose of Kenalog was 80 mg. Upon completion of the injections the needle was removed and Band-Aid was applied.? Upon completion of the injection patient was taken outside of the operating room to the recovery room where recovered uneventfully. Orders: Orders FL guidance in treatment room Today M53.3 - Sacrococcygeal disorders, not elsewhere classified Coding Level of Care Code Procedure Only Diagnoses Sacroiliac joint pain M53.3
[2024-12-09 09:14] VITALS: BP 129/73; PULSE 65; RESP 18; O2SAT 100
[2024-12-09 09:34] VITALS: BP 123/76; PULSE 60; RESP 18; O2SAT 100
== END 2024-12-09 09:34 | disposition home or self-care (01) ==
LOC: HO.PMCPRC 09:09
PROVIDERS: PCP Internal Medicine; Visit Provider Anesthesiology
DX: M53.3 Sacrococcygeal disorders, not elsewhere classified (principal)
CPT/HCPCS: 27096

== ENCOUNTER 2024-12-09 09:45 | Outpatient (REF) | payer OTHER, SELFPAY ==
[2024-12-09 11:36] LABS: HBS Num1 0.49 mIU/mL (0-7.99); HBc Num1 0.04 S/CO (0.00-0.79); HBsAGNum1 0.42 S/CO (0.00-0.99); HIV AB/AG Nonreactive (Nonreactive); HIV Num 1 0.05 S/CO (0.00-0.99); Hepatitis B Core Antibody Nonreactive (Nonreactive); Hepatitis B Surface Antigen Negative (Negative); ~Hepatitis B Surface Antibody NONREACTIVE (Nonreactive)
[2024-12-09 13:28] LABS: Hepatitis C Ab Exposure Source NonReactive (Nonreactive)
[2024-12-10 07:09] LABS: CRP High Sensitivity 4.1 mg/L
== END 2024-12-09 09:46 | disposition home or self-care (01) ==
LOC: HO.LAB 09:45
PROVIDERS: PCP Internal Medicine; Visit Provider Nurse Practitioner Family
DX: M46.1 Sacroiliitis, not elsewhere classified (principal); Z57.8 Occupational exposure to other risk factors; R79.82 Elevated C-reactive protein (CRP)
CPT/HCPCS: 36415; 86141; 86803

== ENCOUNTER 2024-12-12 11:32 | Outpatient (AMB) | payer OTHER, SELFPAY ==
[2024-12-12 11:43] VITALS: BMI 41.2
--- NOTE | 2024-12-12 11:43 | MHC.OFFVIS ---
Vital Signs 12/12/24 11:43 Height 5 ft 1 in Weight 218 lb BMI 41.2 Intake Visit Reasons: Trigger point inject #2 Intake Note: Arcadio is a 39 year old female who presents today for follow up of cervical strain and trigger injection #2.Patient reports that from the first injection she did have some mild relief. Allergies sertraline Adverse Reaction (Unknown, Verified 12/12/24 11:48) Diarrhea Medication List - Last Reconciled 12/12/24 by France Brunner MD alprazolam 1 mg PO QID PRN atorvastatin 10 mg PO DAILY back brace As directed bupropion HCl XL 150 mg PO QAM bupropion HCl XL 300 mg PO DAILY clonidine HCl 0.2 mg PO DAILY diclofenac potassium 50 mg PO DAILY fenofibrate nanocrystallized mg PO fluocinonide 0.05% 1 appl topical BID gabapentin 2,000 mg PO DAILY ibuprofen mg PO lorazepam (Ativan) 1 mg PO ONCE methocarbamol 750 mg PO Q8H PRN vortioxetine (Trintellix) 20 mg PO DAILY HPI Comments Details: Had some relief on previous trigger point injection. Today is 2nd. [facility] Medical History De Quervain's syndrome (tenosynovitis) Anxiety and depression Former smoker Hyperlipidemia Allergic rhinitis Panic disorder Fibromyalgia IUD (intrauterine device) in place Heart palpitations Family history of ovarian cancer Eczema Muscle spasm of back Low back pain Morbid obesity with BMI of 40.0-44.9, adult Insomnia Surgical History Hx of reduction mammoplasty (~2008) History of surgery on wrist History of wisdom tooth extraction History of hemorrhoidectomy History of lumpectomy of right breast (~2021) Social History Alcohol intake: current Alcohol intake frequency: holidays/special occasions only Alcohol type: beer Patient Tobacco Use Status: Never used Tobacco e-Cigarette/Vaping Use: Currently Using Current occupational status: employed 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 Consent obtained. Trigger points palpated, 2 on right upper trapezius, 1 on right rhomboids. Needling performed with gauge 27 needle, subsequently injecting 1 ml of 2% Lidocaine., total of 3 mL. Patient tolerated procedure well. Post-injection instructions given. [id number] Point Injection 3 or more All charges added?: Procedure code (CPT) selection complete Assessment & Plan Assessment & Plan (1) Myofascial pain: Code(s): M79.18 - Myalgia, other site Category: Medical Plan Tolerated procedure well. Last injection/3rd injection scheduled for next Sunday. We also looked at cervical MRI images, done at an outside facility. Did not see any significant disc herniation, nerve impingement or any spinal stenosis or cord compression. Patient reassured. Continue with current treatment plan. Assessment and plan discussed with patient, and patient was agreeable. All questions were answered thoroughly. France Brunner MD, GRAHAM Board Certified, [place] [employer] and Rehabilitation (ABPMR) Board Certified, [place] [employer] Electrodiagnostic Medicine (ABEM) Orders: Orders AMB Trigger Point Injection Today M79.18 - Myalgia, other site Coding Level of Care Code Procedure Only Diagnoses Myofascial pain M79.18 CPT Codes Therapeutic Injection - Ther Injection 2: [id number] Point Injection 3 or more ([id number])
--- OUTSIDE RECORDS SUMMARY | 2024-12-12 12:28 | XMS_ITS | Clinical Summary ---
Author Organization [facility] [address] [place] [address] Address [address] [place] [address] Phone Care Team Providers Care Rn Orthopedic Name Role Phone Beltran Baez MD Primary Care Provider [phone]- [phone] Allergies Active Allergy Reactions Criticality Noted Date [...] (BMI) of 40.0 to 44.9 in adult ([facility] V24, [facility] V28) 04/07/2021 Fibromyalgia 08/31/2017 Panic disorder 07/14/2014 Allergic rhinitis 11/09/2011 Hyperlipidemia 09/01/2009 Encounters Date Type Department Care Team Description 10/09/2024 4:47 PM EDT - 10/09/2024 11:59 PM EDT Hospital Encounter Radiology Department - [address] [address] Upper back pain Discharge Disposition: Home or Self Care 10/09/2024 4:45 PM EDT - 10/09/2024 11:59 PM EDT Hospital Encounter Radiology Department - [address] [address] Neck pain Discharge Disposition: Home or Self Care 09/18/2024 Telephone Adult Medicine [address] [address] Beltran Baez MD prior auth for medication 09/16/2024 3:00 PM EDT Office Visit Adult Medicine [address] [address] Beltran Baez MD Annual physical exam (Primary [...] ENT: Therapist and psychiatrist- Rosanna Leos at [facility] Elevated C-reactive protein (CRP) DX:Elevated C-reactive [...] 9:30 AM EDT Office Visit Adult Medicine [facility] [address] [place] [address] Beltran Baez MD [address] [place] [address] Health Maintenance Due Date Last Done Comments [...] changes. ??No cord signal abnormality. POS - [id number] -------- FINAL REPORT -------- Dictated By: Ivory Vernon Dictated Date: 10/10/2024 11:06 ET Assigned Physician: Ivory Vernon Reviewed and Electronically Signed By: Ivory Vernon Signed Date: 10/12/2024 20:47 ET Workstation ID: [id number] Transcribed By: Self Edit Transcribed Date: 10/10/2024 [...] signal abnormality detected. Conus medullaris terminates at [id number] is within normal limits. Vertebral body heights [...] changes. No cord signal abnormality. POS - [id number] -------- FINAL REPORT -------- Dictated By: Ivory Vernon Dictated Date: 10/10/2024 11:06 ET Assigned Physician: Ivory Vernon Reviewed and Electronically Signed By: Ivory Vernon Signed Date: 10/12/2024 20:47 ET Workstation ID: [id number] Transcribed By: Self Edit Transcribed Date: 10/10/2024 [...] canal stenosis at any level. POS - [id number] -------- FINAL REPORT -------- Dictated By: Ivory Vernon Dictated Date: 10/10/2024 08:58 ET Assigned Physician: Ivory Vernon Reviewed and Electronically Signed By: Ivory Vernon Signed Date: 10/12/2024 20:48 ET Workstation ID: [id number] Transcribed By: Self Edit Transcribed Date: 10/10/2024 [...] spinal canal stenosis at anylevel. POS - [id number] -------- FINAL REPORT -------- Dictated By: Ivory Vernon Dictated Date: 10/10/2024 08:58 ET Assigned Physician: Ivory Vernon Reviewed and Electronically Signed By: Ivory Vernon Signed Date: 10/12/2024 20:48 ET Workstation ID: [id number] Transcribed By: Self Edit Transcribed Date: 10/10/2024 [...] Final Result [facility] [address] [place] [address], [place] [phone] * (ABNORMAL) Lipid panel with reflex to [...] BLOOD ORDERABLES Final Result Performing Organization Address [facility]/ZIP Co de Phone Number [facility] [address] [place] [address], [place] [phone] * (ABNORMAL) Iron and TIBC (09/16/2024 2:47 [...] BLOOD ORDERABLES Final Result Performing Organization Address [facility]/ZIP Co de Phone Number [facility] [address] [place] [address], [place] [phone] * Comprehensive metabolic panel (09/16/2024 2:47 PM EDT) Sodium 137 133 - 145 mmol/L LAB CHEMISTRY METHOD 09/16/2024 5:20 PM [facility] Potassium 4.4 3.5 - 5.5 mmol/L LAB CHEMISTRY METHOD 09/16/2024 5:20 PM [facility] Chloride 103 96 - 110 mmol/L LAB CHEMISTRY METHOD 09/16/2024 5:20 PM [facility] CO2 29 21 - 32 mmol/L LAB CHEMISTRY METHOD 09/16/2024 5:20 PM [facility] Anion Gap 5 3 - 11 LAB CHEMISTRY METHOD 09/16/2024 5:20 PM [facility] Glucose 89 70 - 100 mg/dL LAB CHEMISTRY METHOD 09/16/2024 5:20 PM [facility] BUN 10 5 - 25 mg/dL LAB CHEMISTRY METHOD 09/16/2024 5:20 PM [facility] Creatinine 0.94 0.50 - 1.10 mg/dL LAB CHEMISTRY METHOD 09/16/2024 5:20 PM [facility] eGFR 78 >=60 mL/min/1. 73m2 LAB CHEMISTRY METHOD 09/16/2024 5:20 PM [facility] Comment:Calculation based on the??Chronic Kidney Disease Epidemiology Collaboration (CKD-EPI) equation refit??without adjustment for race. BUN/Creatinine Ratio 10.6 LAB CHEMISTRY METHOD 09/16/2024 5:20 PM [facility] Calcium 10.0 8.5 - 10.5 mg/dL LAB CHEMISTRY METHOD 09/16/2024 5:20 PM [facility] AST (SGOT) 22 10 - 42 unit/L LAB CHEMISTRY METHOD 09/16/2024 5:20 PM [facility] ALT (SGPT) 32 10 - [...] Final Result [facility] [address] [place] [address], * SCREENING MAMMOGRAPHY BI 2-VIEW BREAST INC [...] malignancy. BI-RADS 1 - negative Susie Harman [facility] IMG XR PROCEDURES Final Result from Last 3 Months or Most Recently Relevant to Health Maintenance Insurance [facility] [employer] Care Teams Rn Orthopedic Relationship Specialty Start Date End Date Beltran Baez MD [address] [place] [address] PCP - General 07/26/22
== END 2024-12-12 12:12 | disposition home or self-care (01) ==
LOC: HO.HOS 11:32
PROVIDERS: PCP Internal Medicine; Visit Provider Physical Medicine & Rehabilitation
DX: M79.18 Myalgia, other site (principal); M54.2 Cervicalgia
CPT/HCPCS: 20553

== ENCOUNTER → 2024-12-12 11:32 | Outpatient (BNVA) | payer OTHER, SELFPAY | PROVIDERS: PCP Internal Medicine; Visit Provider Physical Medicine & Rehabilitation | DX: M25.512 Pain in left shoulder (principal); M79.18 Myalgia, other site | CPT/HCPCS: 20553; J2003 ==

== ENCOUNTER 2024-12-19 11:37 | Outpatient (AMB) | payer OTHER, SELFPAY ==
--- NOTE | 2024-12-19 11:53 | MHC.OFFVIS ---
Vital Signs 12/19/24 11:59 Height 5 ft 1 in Weight 218 lb BMI 41.2 Intake Visit Reasons: Inj-Trigger point inject #3 Intake Note: Arcadio is a 39 year old female who presents today for follow up of cervical strain and trigger injection #3 upper back trigger injection #3.Patient states she is feeling and noticing improvement from her first two trigger point injections. Allergies sertraline Adverse Reaction (Unknown, Verified 12/19/24 11:58) Diarrhea Medication List - Last Reconciled 12/19/24 by France Brunner MD alprazolam 1 mg PO QID PRN atorvastatin 10 mg PO DAILY back brace As directed bupropion HCl XL 150 mg PO QAM bupropion HCl XL 300 mg PO DAILY clonidine HCl 0.2 mg PO DAILY diclofenac potassium 50 mg PO DAILY fenofibrate nanocrystallized mg PO fluocinonide 0.05% 1 appl topical BID gabapentin 2,000 mg PO DAILY ibuprofen mg PO lorazepam (Ativan) 1 mg PO ONCE methocarbamol 750 mg PO Q8H PRN naloxone 4 mg/actuation (Narcan) 4 mg intranasal Q2M PRN oxycodone-acetaminophen 5-325 mg (Percocet) 1 tab PO Q8H PRN 5 days vortioxetine (Trintellix) 20 mg PO DAILY HPI Comments Details: She felt relief from last injection. [facility] Medical History De Quervain's syndrome (tenosynovitis) Anxiety and depression Former smoker Hyperlipidemia Allergic rhinitis Panic disorder Fibromyalgia IUD (intrauterine device) in place Heart palpitations Family history of ovarian cancer Eczema Muscle spasm of back Low back pain Morbid obesity with BMI of 40.0-44.9, adult Insomnia Surgical History Hx of reduction mammoplasty (~2008) History of surgery on wrist History of wisdom tooth extraction History of hemorrhoidectomy History of lumpectomy of right breast (~2021) Social History Alcohol intake: current Alcohol intake frequency: holidays/special occasions only Alcohol type: beer Patient Tobacco Use Status: Never used Tobacco e-Cigarette/Vaping Use: Currently Using Current occupational status: employed 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 Consent obtained. Trigger points, 2 palpated on right upper trapezius, 1 on right infraspinatus. Needling performed with gauge 27 needle, subsequently injecting 1 ml of 2% Lidocaine., total of 3 mL. Patient tolerated procedure well. Post-injection instructions given. 13510-[id number] Point Injection 3 or more All charges added?: Procedure code (CPT) selection complete Assessment & Plan Assessment & Plan (1) Myofascial pain: Code(s): M79.18 - Myalgia, other site Category: Medical Plan Tolerated procedure well. Assessment and plan discussed with patient, and patient was agreeable. All questions were answered thoroughly. Follow up 6 weeks. France Brunner MD, GRAHAM Board Certified, [place] [employer] and Rehabilitation (ABPMR) Board Certified, [place] [employer] Electrodiagnostic Medicine (ABEM) Orders: Orders AMB Trigger Point Injection Today M79.18 - Myalgia, other site Coding Level of Care Code Procedure Only Diagnoses Myofascial pain M79.18 CPT Codes Therapeutic Injection - Ther Injection 2: 93261-[id number] Point Injection 3 or more ([id number])
[2024-12-19 11:59] VITALS: BMI 41.2
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
== END 2024-12-19 12:37 | disposition home or self-care (01) ==
LOC: HO.HOS 11:37
PROVIDERS: PCP Internal Medicine; Visit Provider Physical Medicine & Rehabilitation
DX: M79.18 Myalgia, other site (principal)
CPT/HCPCS: 20553

== ENCOUNTER → 2024-12-19 11:37 | Outpatient (BNVA) | payer OTHER, SELFPAY | PROVIDERS: PCP Internal Medicine; Visit Provider Physical Medicine & Rehabilitation | DX: M79.18 Myalgia, other site (principal) | CPT/HCPCS: 20553; J2003 ==

== ENCOUNTER 2025-01-13 13:30 | Outpatient (AMB) | payer OTHER, SELFPAY ==
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
[2025-01-13 13:38] VITALS: BP 160/72; PULSE 71; O2SAT 100; BMI 39.4
--- OUTSIDE RECORDS SUMMARY | 2025-01-13 14:51 | XMS_ITS | Clinical Summary ---
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 90 each 09/24/19 25 Active ascorbic acid (VITAMIN C) 500 mg tablet Take 1 tablet (500 mg total) by mouth 1 (one) time each day. 30 each 09/24/19 Active fenofibrate (TRICOR) 48 mg tablet TAKE [...] TO THE SKIN DAILY FOR PAIN 11/12/19 025 Discontinued fluocinonide (LIDEX) 0.05 % cream Apply 0.05 applicators topically. 09/28/19 24 025 Discontinued orlistat (XenicaL) 120 mg capsule Take 1 capsule (120 mg total) by mouth 3 (three) times a day with meals. 270 capsule 09/17/19 025 Discontinued Active Problems Problem Noted Date [...] (BMI) of 40.0 to 44.9 in adult ([facility] V24, [facility] V28) 04/07/2021 Fibromyalgia 08/31/2017 Panic disorder 07/14/2014 Allergic rhinitis 11/09/2011 Hyperlipidemia 09/01/2009 Encounters Date Type Department Care Team Description 12/19/2024 Telephone Adult Medicine [address] [phone] Beltran Baez MD prior auth for medication 12/18/2024 9:30 AM EDT Office Visit Adult Medicine [address] [phone] Beltran Baez MD Class 3 severe obesity due to excess calories with serious comorbidity and body mass index (BMI) of 40.0 to 44.9 in adult ([facility] V24, [facility] V28) (Primary Dx); Anxiety and depression; Hyperlipidemia, unspecified hyperlipidemia type; Hx of papillary thyroid carcinoma from Last 3 Months Immunizations Name Administration [...] ENT: Therapist and psychiatrist- Rosanna Leos at [facility] Elevated C-reactive protein (CRP) DX:Elevated C-reactive [...] Care Team (Late st Contact Info) Description 09/17/2025 4:30 PM EDT Office Visit Adult Medicine [facility] [address] [place] [phone] Beltran Baez MD [address] [place] [address] Health Maintenance Due Date Last Done Comments Influenza Vaccine (#1) 2025 , 06/14/2023, 04/14/2021, Additional history exists Breast Cancer Screening 05/08/2025 05/08/2023, 08/01 COVID-19 [...] 5 Years) and At-Risk Patients (6 to 49 Years) Aged Out No longer eligible based on patient's age to complete this topic RSV Immunization Patients Under 20 months Aged Out No longer eligible based on patient's age to complete this topic Varicella Vaccines Aged Out No longer eligible based on patient's age to complete this topic Procedures Procedure Name Priority Date/Time Associated Diagnosis Comments LIPID PANEL WITH REFLEX TO DIRECT LDL Routine 09/16/2024 2:47 PM EDT Mixed hyperlipidemia SCREENING MAMMOGRAPHY BI 2-VIEW BREAST INC CAD Routine 05/08/2023 3:27 PM EST Encounter for screening mammogram for malignant neoplasm of breast from Last 3 Months or Most Recently Relevant to Health Maintenance Results * (ABNORMAL) Lipid panel with reflex to direct LDL (09/16/2024 2:47 PM EDT) Cholesterol 180 0 - 200 mg/dL LAB CHEMISTRY METHOD 09/16/2024 5:20 PM EDT [facility] Triglycerides 198(H) 0 - 150 mg/dL LAB CHEMISTRY METHOD 09/16/2024 5:20 PM EDT [facility] HDL 45 >=40 mg/dL LAB CHEMISTRY METHOD 09/16/2024 5:20 PM EDT [facility] LDL Calculated 95 0 - 100 mg/dL LAB CHEMISTRY METHOD 09/16/2024 5:20 PM EDT [facility] VLDL Cholesterol Kevin 39.6 mg/dL LAB CHEMISTRY METHOD 09/16/2024 5:20 PM EDT [facility] Non HDL Chol. (LDL+VLDL) 135 <145 mg/dL LAB CHEMISTRY METHOD 09/16/2024 5:20 PM EDT [facility] Chol/HDL Ratio 4.0 0.0 - 4.4 LAB CHEMISTRY METHOD 09/16/2024 5:20 PM EDT [facility] Blood Venous blood specimen / Unknown Venipuncture / Unknown 09/16/2024 2:47 PM EDT 09/16/2024 2:47 PM EDT us Beltran Baez MD LAB BLOOD ORDERABLES Final Result [facility] [address] [place] [address], [place] [phone] * SCREENING MAMMOGRAPHY BI 2-VIEW BREAST INC [...] Most Recently Relevant to Health Maintenance Insurance [facility] [employer] Care Teams Sheep Farm Manager Relationship Specialty Start Date End Date Beltran Baez MD [address] [place] [address] [facility] - General 07/26/22
== END 2025-01-13 13:55 | disposition home or self-care (01) ==
LOC: HO.PMC 13:30
PROVIDERS: PCP Internal Medicine; Visit Provider Nurse Practitioner Family
DX: M54.50 Low back pain, unspecified (principal); M47.817 Spondylosis without myelopathy or radiculopathy, lumbosacral region; M53.3 Sacrococcygeal disorders, not elsewhere classified; M46.1 Sacroiliitis, not elsewhere classified
CPT/HCPCS: 99213; G2211

== ENCOUNTER 2025-04-03 08:12 | Outpatient (AMB) | payer OTHER, SELFPAY ==
[2025-04-05 10:23] VITALS: BMI 38.5
--- NOTE | 2025-04-05 10:23 | MHC.OFFVISWM ---
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 38.6 Allergies sertraline Adverse Reaction (Unknown, Verified 04/05/25 10:25) Diarrhea Medication List - Last Reconciled 04/05/25 by Clemente Marquez MD alprazolam 1 mg PO QID PRN atorvastatin 10 mg PO DAILY back brace As directed bupropion HCl XL 150 mg PO QAM bupropion HCl XL 300 mg PO DAILY clonidine HCl 0.2 mg PO DAILY diclofenac potassium 50 mg PO DAILY fenofibrate nanocrystallized mg PO fluocinonide 0.05% 1 appl topical BID gabapentin 2,000 mg PO DAILY ibuprofen mg PO lorazepam (Ativan) 1 mg PO ONCE methocarbamol 750 mg PO Q8H PRN naloxone 4 mg/actuation (Narcan) 4 mg intranasal Q2M PRN oxycodone-acetaminophen 5-325 mg (Percocet) 1 tab PO Q8H PRN 5 days vortioxetine (Trintellix) 20 mg PO DAILY HPI 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: Details: Start time: 2pm, End time: 3pm ?I spent 45 minutes speaking with the patient on the phone plus an additional 15 minutes reviewing and updating records for a total of 60 minutes HPI Comments Details: Previous weight loss efforts: self diets and exercise Wakes up: 5am, Sleeps: 9pm Breakfast: Pure protein shake Lunch: yes Dinner: yes Snacks: 1 Exercise: has home treadmill PFSH Medical History (Updated 04/05/25 @ 10:35 by Clemente Marquez MD) BMI 38.0-38.9,adult Obesity De Quervain's syndrome (tenosynovitis) Anxiety and depression Former smoker Hyperlipidemia Allergic rhinitis Panic disorder Fibromyalgia IUD (intrauterine device) in place Heart palpitations Family history of ovarian cancer Eczema Muscle spasm of back Low back pain Morbid obesity with BMI of 40.0-44.9, adult Insomnia Surgical History Hx of reduction mammoplasty (~2008) History of surgery on wrist History of wisdom tooth extraction History of hemorrhoidectomy History of lumpectomy of right breast (~2021) Family History (Updated 02/12/25 @ 10:57 by Vandana Wyatt CMA) Mother No problems noted. 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 Physical Exam Vital Signs: BMI result Body Mass Index 38.5 Telehealth Telehealth Telehealth Platform: Telephone Location of provider rendering services: practice address Location of patient: address on file Patient Identification confirmed using: Name, : Yes Telehealth method: voice only Patient verbally consented to treatment: Yes Patient verbally consented to billing insurance company: Yes Patient informed of any privacy concerns related to visit: Yes Minutes spent on Phone/Video with Pt.: 60 Assessment & Plan Assessment & Plan (1) Obesity: Code(s): E66.9 - Obesity, unspecified Category: Medical Qualifiers: Body mass index: BMI 38.0-38.9 Obesity classification: adult class 2 (BMI 35 - 39.9) Obesity type: due to excess calories Serious obesity comorbidity presence: with serious comorbidity Qualified Code(s): E66.812 - Obesity, class 2; Z68.38 - Body mass index [BMI] 38.0-38.9, adult Plan: 1. As we discussed, based on your present BMI you are approximately 90lbs overweight. In my opinion, for any weight loss strategy to be successful should have a high probability to help you lose at least 70lbs out of 90lbs of the extra weight you carry. We discussed in detail the available therapeutic options: 1) our lifestyle intervention program that has an average weight loss of 10% in 3 months.?Some patients continue it for longer and have lost over 50lbs but this is not common. Our lifestyle program can be provided by me or by using our software ayala, the [employer] ayala. I will provide you with a link to use the ayala if you choose to do so. We use protein shakes and protein bars to replace some of the meals of the day and cover your appetite better. We will decide together the exact combination. 2) Weight loss medications: these can be used in conjunction with our lifestyle program or you may choose to use them without following a lifestyle program from my program but your own. As we discussed, your insurance requires you to do the lifestyle program for 3 months before they approve the medications. The medication I use more often is called Zepbound and is one shot per week. My office will do the authorizations and we will train you how to use it properly. We also discussed that you can self pay for the first 3 months and the cost is $249 for the first month and $499 for any other month thereafter. These payments go to the drug company directly and not to us. Another option is the Phentermine pill but that can interact with your anti-depressant medications and cause heart palpitations and I would not recommend it for you. 3) We also discussed about the lap sleeve gastrectomy. In my opinion this is the best option to solve your problem based on your situation and should be used in conjunction with the two previous options. A good strategy to make this decision to proceed with surgery, is to set some goals with the lifestyle intervention and medication options: If you don't lose at least 10lbs the first 6 weeks after starting the program or at least 10% in 3 months.?I emphasized the importance of close follow-up, adherence to instructions and good communication. The surgery does not replace the need to change your lifestlyle which is the cause of the obesity problem. The surgery provides the motivation to try again to change your lifestyle, it reduces the appetite and make the transition to a better lifestyle easier and doubles the amount of weight you would lose compared to doing the lifestyle change without the surgery. You will need to be on a liquid diet with protein shakes for 2 weeks before surgery to maximize weight loss and boost your nutritional status to recover better from surgery and also for the first two weeks after surgery to let the stomach heal before we introduce other foods. After the first 2 weeks we will introduce protein bars and soft foods like scrambled eggs, cottage cheese and yogurt and after the 6th week will introduce meat, fish and cooked vegetables in small amounts. Over time you should be able to eat everything in small amounts. Side effects like nausea, vomiting, heartburn or abdominal pain are not common in the practice unless you are not following in the practice. This operation requires lifetime commitment to following in our practice and communication with me. You will much less weight and experience side effects if you don?t communicate or not following in the practice. Complications are rare and in our practice is about 1/10 of the national average. 2. The patient chose to proceed with our lifestyle intervention and the use of Zepbound.?I ordered a medication to help you with the weight loss which is called Zepbound. My office will try to authorize it. Please let me know when you receive it so I can give you a meal and exercise plan. Please let me know when you have one injection left so I can prescribe the next dose.Common side effects include nausea, vomiting, constipation, diarrhea, abdominal pain. Please let me know if you develop any of these symptoms. 3. Nutritional counseling. Start one liquid Pure protein shake (mix 4oz of Pure protein shake with 4oz low fat unsweetened almond milk) at 6am-8am, 1 protein bar (Fit Crunch protein bars, buy at [employer],? [employer], [employer]) at 9am-11am, another liquid Pure protein shake (mix 4oz of Pure protein shake with 4oz low fat unsweetened almond milk) at 12pm-2pm, another Fit Crunch protein bar at 3pm-5pm, dinner at 6pm (8 forks of protein and 8 forks of salad/vegetables). If hungry, another HALF Fit Crunch protein bar at 8pm-9pm. So you do 2 protein shakes, 2 to 2.5 protein bars and one meal per day. Meal to include lean meat (beef, fish, pork, turkey, chicken), or telugu yogurt, or egg whites, or beans with a salad with olive oil and fruits (berries, pears, apples, kiwi). Avoid salt, breads, potatoes, rice, pasta, desserts. 4. Each shake would be drunk slowly, like coffee in a period of 2 hours. 5. Cut each bar in 4 pieces and eat each piece in 30min ?to make each bar last 2 hours. 6. I emphasized the importance of measuring accurately the food portion and measure it when serving the food in plate 7. The meal portions include 8 full-size forks of meat and 8 full-size forks of salad. You always eat the meat portion but you can replace up to 4 forks for salad/vegetables with rice, potatoes or pasta, or a fruit ?if you like. The less you do it the better weight loss will be. 8. One full-size fork is what it can be scooped on the fork without falling aside and not what can be bit with the fork. Use regular forks like those you find in a typical restaurant. 9.? Please use your the body composition scale, as we discussed and send me weight measurements as soon as possible and then once a week. Always include your diet and exercise plan. 10. Start treadmill with an incline of 2.0 and speed of 3.0. Increase incline by 1 every 3 min to a max incline of 8.0, stay 3min at 8.0 and then return to 2.0 and repeat same steps until calorie goal is met. Goal is to burn 2000 calories per week on exercise, which means either 300 calories daily, or 400 calories 5 days per week, or 500 calories 4 days per week, or 650 calories 3 days per week. 11.?It is important of avoiding and while on the Zepbound. 12. Goal is to lose at least 1.5-2lbs per week 13. Goal to lose at least 10% of your weight, which is about 20lbs. Minimum weight goal: 180lbs 14. Please follow the diet plan exactly without any change. If you don't like something about the plan or you feel hungry you need to communicate with me so I can help you revise the plan. You should not change the plan yourself
== END 2025-04-05 10:56 | disposition home or self-care (01) ==
LOC: HO.HBS 08:12
PROVIDERS: PCP Internal Medicine; Visit Provider Surgery
DX: E66.9 Obesity, unspecified (principal); Z68.38 Body mass index [BMI] 38.0-38.9, adult
CPT/HCPCS: 98011

== ENCOUNTER 2025-05-04 15:49 | Outpatient (AMB) | payer OTHER, SELFPAY ==
--- NOTE | 2025-05-04 15:51 | MHC.OFFVIS ---
Vital Signs 05/04/25 15:57 Height 5 ft 1 in Weight 201 lb BMI 38.0 BP 180/81 H Blood Pressure Location Rt brachial Position Sitting Pulse 64 Pulse Source Pulse Oximeter Pulse Oximetry (%) 99 Oxygen Delivery Method Room Air Intake Visit Reasons: Follow Up Intake Note: Pain today 10/09 Pharmacy Technician Inpatient Required: No Accompanied by: Self / Same As Patient Allergies sertraline Adverse Reaction (Unknown, Verified 05/04/25 16:13) Diarrhea HPI Comments Details: The patient is a 40-year-old female presenting with chronic low back pain. The lower back pain has been persistent and was previously managed with sacroiliac joint injections, which provided good relief. However, bilateral lumbar medial branch blocks did not alleviate the pain. The pain is primarily located in the lower back, radiating to the buttocks, with the left side being more severe than the right. The pain intensity is currently at a level of 4 out of 10, but it can increase to a 6, at which point it radiates down the legs but not below knee level. The patient reports that prolonged sitting or changing positions exacerbates the pain. 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 Denies any recent cough, cold, infection, fever or any significant changes in medical history since last office visit. Past Procedures: 12/10/24: Bilateral therapeutic SI joint [id number] ongoing pain relief 11/11/24: Bilateral L3-L4 DR L5 MBB-0% pain relief 05/06/24: Bilateral Diagnostic SIJ injections-100% pain relief for 6.5 hours 01/01/24: Bilateral Therapeutic SIJ injections-80% ongoing pain relief with activities, 100% pain relief at rest or sleep PRIOR: Patient presents today for follow-up to review recent sacroiliac joint injection x-ray results. She continues to endorse low back pain with radiation to her hips and legs laterally with muscle spasms and pain in her buttocks. Xray findings showed moderate degenerative changes with sclerosis and narrowing in the bilateral sacroiliac joints. Patient reports strong family history of degenerative arthritis in her father and is concerned for inflammatory degenerative arthritis for herself. We will obtain baseline labs today and consider Rheumatology referral if indicated. In meantime, patient would like to proceed with therapeutic sacroiliac joint injections to alleviate her chronic daily low back pain and decrease regular NSAID use. She reports good tolerance with methocarbamol and diclofenac potassium without any side effects with partial and temporary pain relief. Denies any recent cough, cold, infection, fever, any significant changes in her medical history, medications or recent hospitalizations. PRIOR: Patient is a pleasant 38-year-old female with history of chronic low back pain and facet arthropathy presents today for initial evaluation of low back pain. Denies any recent or past trauma, injury, or falls. Patient denies any inciting events but reports occasional ?weird dreams and states she remembers jumping out of bed. Back pain is axial and also radiates to both legs intermittently without any specific dermatome. She reports left foot numbness and tingling without weakness or foot drop. Patient completed one session of physical therapy at [facility] after which her back pain significantly increased. She could not return to work due to exacerbation of pain and has been taken intermittent days of since unknown back injury on 10/02/23. 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 She reports increased pain with prolonged walking, standing, climbing stairs. Lumbar xray was done in [facility] and is noted below. Patient reports back pain affects her daily activities and functioning, mobility, sleep, and social interactions. She is interested in interventional treatments to address her low back pain as well as restart physical therapy to strengthen her core and reduced muscle spasms. Denies any fever, abdominal or groin pain, bladder or bowel dysfunction, or saddle anesthesia. Patient receives psychological counseling for depression and anxiety at the [facility]. She consumes 6 cups of coffee daily, rare beer consumption and vaping. Patient denies illicit drug use. Location: Lower back pain, intermittent bilateral radiculopathy Duration: Chronic pain for >10 years, worsening 10/02/23, no inciting events Characteristics of symptom or complaint: Throbbing, stabbing, sharp, tingling Aggravating or associated factors: Movement, walking, standing Relieving factors: Heat, gabapentin, cyclobenzaprine, Tylenol, Ibuprofen Treatment: PT- made pain worse after 1st session, chiropractor x5, TENS, massage Oswestry Low Back Disability Score=35 [facility] Medical History BMI 38.0-38.9,adult Obesity De Quervain's syndrome (tenosynovitis) Anxiety and depression Former smoker Hyperlipidemia Allergic rhinitis Panic disorder Fibromyalgia IUD (intrauterine device) in place Heart palpitations Family history of ovarian cancer Eczema Muscle spasm of back Low back pain Morbid obesity with BMI of 40.0-44.9, adult Insomnia Surgical History Hx of reduction mammoplasty (~2008) History of surgery on wrist History of wisdom tooth extraction History of hemorrhoidectomy History of lumpectomy of right breast (~2021) Family History Mother No problems noted. 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 Alert and oriented. Mood and affect appropriate. Follows and participates in conversation appropriately. Respiratory effort is unlabored. No cough. Able to transition from sit to stand unassisted. Ambulates with bilaterally normal heel strike and toe off. General: Yes no CVA tenderness Back/Spine/Pelvis Other: Limited lumbar ROM due to pain. Lumbar flexion and extension reproduce mild-moderate pain. Demonstrates 5/5 strength of quadriceps bilaterally as well as flexion/dorsiflexion of bilateral feet against resistance. 2+ pedal pulses bilaterally. SLR test with dorsiflexion negative bilaterally. +2 patellar and achilles reflexes bilaterally. Facet loading test positive bilaterally. Addis sign, Terrence?s, [place]len, Pelvic compression and Stinchfield tests are positive bilaterally, left>right. No groin pain with I/E hip rotations. Valsalva maneuver negative. Back: no CVA tenderness Cervical Spine: cervical ROM normal, cervical muscular tenderness and No Cervical spine tenderness Thoracic/Lumbar Spine: thoracic and lumbar spine normal to inspection, No Thoracic/lumbar spine scar(s), Lasegue's sign negative, straight leg raise negative bilaterally, pain with thoraco-lumbar ROM, paraspinal muscle tenderness on the right greater than left, thoraco-lumbar ROM limited, No thoracic spinal tenderness and lumbar spinal tenderness (L4-S1) Pelvis: buttock tenderness bilaterally Sacroiliac joints: bilaterally tender to palpation Extrem General: Yes capillary refill normal, Yes no clubbing, cyanosis or edema and Yes no calf tenderness Results Reviewed Results Reviewed: MR lumbar spine wo con 08/31/24 CLINICAL HISTORY: M47.817 - Spondylosis without myelopathy or radiculopathy, lumbosacral r... MR of the lumbar spine without contrast Comparison: None Findings: Normal alignment. Normal marrow signal. No cord expansion or abnormal signal intensity. The conus medullaris terminates at L1/L2, which is normal. 2 mm focus of increased signal on the T1 weighted images may indicate a fatty filum terminale (only well seen on series 9, image 10). There is edema in the subcutaneous fat. L1/L2: No disc herniation. No facet joint or ligamentum flavum hypertrophy. No central canal stenosis. No lateral recess stenosis. No foraminal stenosis. L2/L3: No disc herniation. No facet joint or ligamentum flavum hypertrophy. No central canal stenosis. No lateral recess stenosis. No foraminal stenosis. L3/L4: 2-3 mm broad-based disc bulge. Mild facet joint and ligamentum flavum hypertrophy. Mild central canal stenosis. Mild bilateral lateral recess stenosis. No foraminal stenosis. L4/L5: 2 mm broad-based disc bulge. Moderate facet joint and ligamentum flavum hypertrophy. Mild central canal stenosis. Moderate bilateral lateral recess stenosis. No foraminal stenosis. L5/S1: No disc herniation. Mild facet joint and ligamentum flavum hypertrophy. Dual-gw-fjpeubvk central canal stenosis; predominantly secondary to epidural lipomatosis. Epidural lipomatosis is present at the other levels, however is most prominent L5/S1. Mild bilateral lateral recess stenosis. No foraminal stenosis. Impression: No acute findings. [id number] multilevel degenerative change, detailed above. Focus of increased signal on the T1 weighted images which is only well seen on a single image could be fatty filum terminale. The spinal cord is not low-lying. XR SACROILIAC JOINTS 11/12/23 CLINICAL INFORMATION: Back pain unspecified. FINDINGS: IUD in the pelvis. Degenerative changes in the imaged lower lumbar spine. Degenerative changes with sclerosis and narrowing in the bilateral sacroiliac joints. IMPRESSION: Moderate degenerative changes with sclerosis and narrowing in the bilateral sacroiliac joints. Assessment & Plan Assessment & Plan (1) Sacroiliac joint pain: Code(s): M53.3 - Sacrococcygeal disorders, not elsewhere classified Category: Medical (2) Degenerative joint disease of sacroiliac joint: Code(s): M46.1 - Sacroiliitis, not elsewhere classified Category: Medical (3) Lumbosacral spondylosis: Code(s): M47.817 - Spondylosis without myelopathy or radiculopathy, lumbosacral region Category: Medical (4) Low back pain: Code(s): M54.50 - Low back pain, unspecified Category: Medical (5) Muscle spasm of back: Code(s): M62.830 - Muscle spasm of back Category: Medical (6) Sacroiliitis: Code(s): M46.1 - Sacroiliitis, not elsewhere classified Category: Medical Plan The plan includes scheduling therapeutic sacroiliac joint injections with steroids, administered one month apart for each side to potentially extend the duration of pain relief. The left side will be treated first, followed by the right side. Scheduled therapeutic bilateral sacroiliac joint injections with local and fluoroscopy. Expectations, risks and benefits were reviewed. Patient is aware she will be contacted to schedule this procedure. All questions were answered and the patient is in agreement of plan. The patient is advised to continue with current pain management strategies and to monitor for any changes in symptoms. Follow-up will be arranged after the injections to assess the effectiveness of the treatment. Patient was informed and verbally consented to the use of an ambient scribe for clinic note documentation during this visit. Coding Level of Care Code Est Pt Level 4 (29780) Complex EM visit Add On G2211 Diagnoses Sacroiliac joint pain M53.3 Degenerative joint disease of sacroiliac joint M46.1 Lumbosacral spondylosis M47.817 Low back pain M54.50 Muscle spasm of back M62.830 Sacroiliitis M46.1
[2025-05-04 15:57] VITALS: BP 180/81; PULSE 64; O2SAT 99; BMI 38.0
--- OUTSIDE RECORDS SUMMARY | 2025-05-04 16:56 | XMS_ITS | Clinical Summary ---
Author Organization [facility] [address] [place] [address] Address [address] [place] [address] Phone Care Team Providers Care Creel Hand Name Role Phone Beltran Baez MD Primary Care Provider Allergies Active Allergy Reactions Criticality Noted Date Comments Sertraline Diarrhea 11/27/2023 Medications vortioxetine (TRINTELLIX) 10 mg tablet Take 1 tablet (10 mg total) by mouth. Active triamcinolone (KENALOG) 0.1 % cream APPLY TO ECZEMA ARMS TWICE DAILY FOR UP TO 10 DAYS WHEN NEEDED 4 Active loratadine 10 mg capsule Take 10-20 mg by mouth. 8 Active gabapentin (NEURONTIN) 400 mg capsule 1 capsule qAM, 1 capsule afternoon and 3 capsule qHS 8 Active acetaminophen (TYLENOL 8 HOUR) 650 mg 8 hr tablet Take 1 tablet (650 mg total) by mouth every 8 (eight) hours if needed. 4 Active ALPRAZolam (XANAX) 1 mg tablet Take 1 tablet (1 mg total) by mouth 3 (three) times a day if needed. 1 Active buPROPion XL (WELLBUTRIN XL) 150 mg 24 hr tablet Take 1 tablet (150 mg total) by mouth. Active cloNIDine (CATAPRES) 0.2 mg tablet Take 1 tablet (0.2 mg total) by mouth. 1 Active diclofenac (VOLTAREN) 50 mg EC tablet Take 1 tablet (50 mg total) by mouth 2 (two) times a day if needed (pain). Do not crush, chew, or split. 28 tablet 1 5 Active cyclobenzaprine (FLEXERIL) 5 mg tablet Take 1 tablet (5 mg total) by mouth at bedtime as needed for muscle spasms. 28 tablet 5 Active ferrous sulfate 325 mg (65 mg iron) EC tablet Take 1 tablet (325 mg total) by mouth 3 (three) times a day with meals. Do not crush, chew, or split. 90 each 11 5 09/24/19 26 Active ascorbic acid (VITAMIN C) 500 mg tablet Take 1 tablet (500 mg total) by mouth 1 (one) time each day. 30 each 5 09/24/19 26 Active fenofibrate (TRICOR) 48 mg tablet TAKE 1 TABLET BY MOUTH DAILY 90 tablet 1 5 Active atorvastatin (LIPITOR) 40 mg tablet Take 1 tablet (40 mg total) by mouth at bedtime. 90 each 5 06/08/20 Active Hospital, Clinic, or Other Facility Administered Medication Ordered Dose Route Frequency Start Date End Date Status levonorgestreL (MIRENA) 21 mcg/24hr (up to 8 yrs) 52 mg IUD [address] for IUD removal and reinsertion 52 mg utrn Once PRN Procedure 2025 2025 Ended Active Problems Problem Noted Date Diagnosed Date [...] (BMI) of 40.0 to 44.9 in adult ([facility] V24, [facility] V28) 04/07/2021 Fibromyalgia 08/31/2017 Panic disorder 07/14/2014 Allergic rhinitis 11/09/2011 Hyperlipidemia 09/01/2009 Encounters Date Type Department Care Team Description 04/28/2025 Results Follow-Up Adult Medicine [address] [phone] Beltran Baez MD 2025 2:30 PM EDT Procedure visit Obstetrics and Gynecology - [address] [phone] Marissa Nguyễn CNM Encounter for IUD removal and reinsertion (Primary Dx) 02/25/2025 Telephone Adult Medicine [address] [phone] Beltran Baez MD 02/13/2025 Telephone Obstetrics and Gynecology - [address] [phone] Susie Harman CNM from Last 3 Months Immunizations Immunization Administration Dates Next Due H1N1 Inj Preservative [...] Surgery Date Site/Laterality Comments BREAST REDUCTION PROCEDURE: OK BREAST REDUCTION; COMMENT: 2008 WRIST SURGERY PROCEDURE: HISTORICAL WRIST SURGERY; COMMENT: ganglion cyst WISDOM TOOTH EXTRACTION PROCEDURE: HISTORICAL WISDOM TEETH EXTRACTION HEMORRHOID SURGERY 2016 PROCEDURE: HISTORICAL HEMMORROIDECTOMY BREAST LUMPECTOMY 2021 Right PROCEDURE: HISTORICAL BREAST LUMPECTOMY Medical History Medical History Date Comments Anxiety DX:Anxiety; COMM ENT: Therapist and psychiatrist- Rosanna Leos at [facility] Elevated C-reactive protein (CRP) DX:Elevated C-reactive [...] Sign Reading Time Taken Comments Blood Pressure 139/80 2025 2:26 PM EDT Pulse 71 2025 2:26 PM EDT Temperature 36.2 C (97.1 F) 12/18/2024 9:28 AM EDT Respiratory Rate 14 2025 2:26 PM EDT Oxygen Saturation - - Inhaled Oxygen Concentration - - Weight 89.8 kg (198 lb) 2025 2:26 PM EDT Height 156 cm (5' 1.42 ) 2025 2:26 PM EDT Body Mass Index 36.91 2025 2:26 PM EDT Plan of Treatment Upcoming Encounters Date Type Department Care Team (Late st Contact Info) Description 05/07/2025 3:30 PM EST Office Visit Adult Medicine [address] [phone] Beltran Baez MD [address] [place], [place] 05/13/2025 6:30 PM EST Appointment Radiology Department - [address] [phone] 09/17/2025 4:30 PM EDT Office Visit Adult [address] [phone] Beltran Baez MD [address] [place], [place] Health Maintenance Due Date Last Done Comments HPV Vaccines (1 - 3-dose SCDM series) 2010 COVID-19 Vaccine ( season) 2025 04/14/2021, 09/28/2020, 09/07/2020 Influenza Vaccine (#1) 2025 , 06/14/2023, 04/14/2021, Additional history exists Breast Cancer Screening 05/08/2025 05/08/2023, 08/01 HIV Screening 07/02/2025 Postponed from 05/31/2022 (Patient Refused) Hepatitis B Vaccines (1 of 3 - 19+ 3-dose series) 07/02/2025 Postponed from 2002 (Patient Refused) Hepatitis C Screening 07/02/2025 Postpo oliver from 05/31/2022 (Patient Refused) Social Influencers of Health Screening 09/16/2025 09/16/2024 Cervical Cancer Screening: HPV 08/30/2028 09/16/2024 Cholesterol Screening (Lipid Panel) 2030 2025, 09/16/2024, 04/28/2024, Additional history exists DTaP,Tdap,and Td Vaccines (4 - Td or Tdap) 04/25/2034 04/25/2024, 03/18/2014, 07/02/2005 RSV Immunization Adult Patients (1 - 1-dose 75+ series) 2058 Depression Screening Completed 04/26/2025 HIB Vaccines Aged Out No longer eligi [...] PANEL WITH REFLEX TO DIRECT LDL Routine 2025 2:47 PM EDT Hyperlipidemia, unspecified hyperlipidemia type IRON AND TIBC Routine 2025 2:47 PM EDT Iron deficiency OK INSERTION INTRAUTERINE DEVICE Routine 2025 2:38 PM EDT Encounter for IUD removal and reinsertion OK REMOVAL INTRAUTERINE DEVICE Routine 2025 2:38 PM EDT Encounter for IUD removal and reinsertion SCREENING MAMMOGRAPHY BI 2-VIEW BREAST INC CAD Routine 05/08/2023 3:27 PM EST Encounter for screening mammogram for malignant neoplasm of breast from Last 3 Months or Most Recently Relevant to Health Maintenance Results * Lipid panel with reflex to direct LDL (2025 2:47 PM EDT) Cholesterol 175 0 - 200 mg/dL LAB CHEMISTRY METHOD 2025 6:39 PM EDT [facility] Triglycerides 145 0 - 150 mg/dL LAB CHEMISTRY METHOD 2025 6:39 PM EDT [facility] HDL 46 >=40 mg/dL LAB CHEMISTRY METHOD 2025 6:39 PM EDT [facility] LDL Calculated 100 0 - 100 mg/dL LAB CHEMISTRY METHOD 2025 6:39 PM EDT [facility] Comment:Estimated LDL Calcul ated using equation: Total cholesterol - HDL cholesterol - (Triglycerides/5) VLDL Cholesterol Kevin 29 mg/dL LAB CHEMISTRY METHOD 2025 6:39 PM EDT [facility] Non HDL Chol. (LDL+VLDL) 129 <145 mg/dL LAB CHEMISTRY METHOD 2025 6:39 PM EDT [facility] Chol/HDL Ratio 3.8 0.0 - 4.4 LAB CHEMISTRY METHOD 2025 6:39 PM EDT [facility] Blood Venous blood specimen / Unknown Venipuncture / Unknown 2025 2:47 PM EDT 2025 2:47 PM EDT us Beltran Baez MD LAB BLOOD ORDERABLES Final Result [facility] [address] [place] [address], [place] [phone] * (ABNORMAL) Iron and TIBC (2025 2:47 PM EDT) Iron 44 40 - 150 mcg/dL LAB CHEMISTRY METHOD 2025 6:38 PM EDT [facility] TIBC 403 250 - 450 mcg/dL LAB CHEMISTRY METHOD 2025 6:38 PM EDT [facility] Iron Saturation 11(L) 15 - 50 % LAB CHEMISTRY METHOD 2025 6:38 PM EDT [facility] Blood Venous blood specimen / Unknown Venipuncture / Unknown 2025 2:47 PM EDT 2025 2:47 PM EDT us Beltran Baez MD LAB BLOOD ORDERABLES Final Result [facility] [address] [place] [address], * OK REMOVAL INTRAUTERINE DEVICE, OK INSERTION INTRAUTERINE DEVICE (2025 2:38 PM EDT) Narrative Marissa Nguyễn CNM - 2025 2:38 PM EDT Marissa Nguyễn CNM 2025 2:41 PM IUD Removal with Reinsertion Date/Time: 2025 2:38 PM Performed by: Marissa Nguyễn CNM Authorized by: Marissa Nguyễn CNM Informed Consent: Patient questions answered: yes Consent given by: Patient Informed consent discussion completed by Physician/RACHEL with patient: Written; patient signed and dated; copy to patient Pre-procedure timeout performed: yes Pre Procedure: Negative urine test: Not indicated Negative serum test: Not indicated Gonorrhea/chlamydia test: Negative Uterine position: Midline Removal Procedure: Strings visible: yes Removal device: Ring forceps Removal reason: Side effects Removal successful: yes Complications: no Insertion Procedure: Speculum placed in vagina and cervix prepped with: Betadine Cervix stablized: With tenaculum Cervical dilation: no Uterus sounded: yes Uterus sound depth (cm): 7 IUD type: Mirena IUD insertion successful: yes Medication Administration: 52 mg levonorgestreL 21 mcg/24hr (up to 8 yrs) 52 mg Hemostasis achieved with: Applied pressure Complications: no Strings trimmed: yes Post-procedure: Ultrasound confirmed placement: no Patient tolerated procedure well: yes Post procedure instructions given: yes Patient will follow up after next period: pt declines string check, will call with any concerns. Marissa Nguyễn CNM IN CLINIC/BEDSIDE ORDERABLE S Final Result * SCREENING MAMMOGRAPHY BI 2-VIEW [...] Most Recently Relevant to Health Maintenance Insurance [facility] [address] [place] [address] [place] [address] [employer] Care Teams Creel Hand Relationship Specialty Start Date End Date Beltran Baez MD [address] [facility] [place] [address] PCP - General 07/26/22
--- OUTSIDE RECORDS SUMMARY | 2025-05-04 16:56 | XMS_ITS | Encounter Summary ---
Author Organization [facility] Address [address] [place] [address] Care Team Providers Care Tire Retreader Name Role Phone Beltran Baez MD Primary Care Provider Encounter Details Date Type Department Care Team (Late Contact Info) Description 04/28/2025 Results Follow-Up Adult Medicine [address] [phone] Beltran Baez MD [address] [place], [place] Social History Tobacco Use Types Packs/Day Years [...] on file documented as of this encounter Plan of Treatment Upcoming Encounters Date Type Department Care Team (Late Contact Info) Description 05/07/2025 3:30 PM EST Office Visit Adult Medicine [address] [phone] Beltran Baez MD [address] [place], [place] 05/13/2025 6:30 PM EST Appointment Radiology Department [facility] [address] [place] [phone] 09/17/2025 4:30 PM EDT Office Visit Adult Medicine [address] [place] [phone] Beltran Baez MD [address] [facility] [place], [place] documented as of this encounter Visit Diagnoses Not on filedocumented in this encounter Additional Health Concerns Assessment Noted Time PHQ-9 Depression Total Score: 0 04/26/20 25 4:16 PM EDT documented as of this encounter Care Teams Tire Retreader Relationship Specialty Start Date End Date Beltran Baez MD [address] [facility] [place] [address] PCP - General 07/26/22 documented as of this encounter
--- OUTSIDE RECORDS SUMMARY | 2025-05-04 16:56 | XMS_ITS | Patient Health Record ---
Author Organization [facility] [facility] Address [address] [place] [address] Care Team Providers Care Diazo Technician Name Role Phone [facility] Unavailable [phone] Reason For Referral No Information Plan Of Treatment No Information
== END 2025-05-04 16:21 | disposition home or self-care (01) ==
LOC: HO.PMC 15:50
PROVIDERS: PCP Internal Medicine; Visit Provider Nurse Practitioner Family
DX: M53.3 Sacrococcygeal disorders, not elsewhere classified (principal); M46.1 Sacroiliitis, not elsewhere classified; M47.817 Spondylosis without myelopathy or radiculopathy, lumbosacral region; M54.50 Low back pain, unspecified; M62.830 Muscle spasm of back
CPT/HCPCS: 99214; G2211

== ENCOUNTER 2025-06-09 06:27 | Outpatient (REF) | payer OTHER, SELFPAY ==
--- NOTE | ~2025-06-09 | FL_ITS ---
EXAMINATION: XR FLUOROSCOPY WITH IMAGES CLINICAL INFORMATION: Sacroiliitis COMPARISON: None available. TECHNIQUE: Fluoroscopy time: 11 seconds DAP: 3.4 mGycm2 Images: 2 FINDINGS: Fluoroscopy provided for procedure. Images related to left SI joint injection. FL/FL guidance in treatment room IMPRESSION: Fluoroscopy provided for procedure. See procedure report for details. Electronically signed by: Vickey Cordero MD 06/10/2025 02:48 PM EST
--- OUTSIDE RECORDS SUMMARY | 2025-06-09 06:30 | XMS_ITS | Encounter Summary ---
Author Organization [facility] Address [address] [place] [address] Care Team Providers Care Outsole Leveler Name Role Phone Beltran Baez MD Primary Care Provider Encounter Details Date Type Department Care Team (Late Contact Info) Description 05/19/2025 Results Follow-Up Adult Medicine [facility] [address] [place] [address] Beltran Baez MD [address] [place], [place] Social History Tobacco Use Types Packs/Day Years Used Date Smoking Tobacco: Former Cigarettes Smokeless Tobacco: Never Alcohol Use Standard Drinks/Week Comments Not Currently 0 (1 standard drink = 0.6 oz pur e alcohol) Comments No Sex and Gender Information Value Date Recorded Sex Assigned at Not on file Legal Sex Female 2:38 PM EST Gender Identity Not on file Sexual Orientation Not on file documented as of this encounter Plan of Treatment Upcoming Encounters Date Type Department Care Team (Late Contact Info) Description 09/17/2025 4:30 PM EDT Office Visit Adult Medicine [facility] [address] [place], [place] [phone] Beltran Baez MD [address] [place], [place] documented as of this encounter Visit Diagnoses Not on filedocumented in this encounter Additional Health Concerns Assessment Noted Time PHQ-9 Depression Total Score: 0 04/26/20 25 4:16 PM EDT documented as of this encounter Care Teams Outsole Leveler Relationship Specialty Start Date End Date Beltran Baez MD [address] [place] [address] PCP - General 07/26/22 documented as of this encounter
--- OUTSIDE RECORDS SUMMARY | 2025-06-09 06:30 | XMS_ITS | Encounter Summary ---
Author Organization [facility] Address [address] [place] [address] Care Team Providers Care County Surveyor Name Role Phone Beltran Baez MD Primary Care Provider Encounter Details Date Type Department Care Team (Late Contact Info) Description 05/19/2025 Results Follow-Up Adult Medicine [facility] [address] [place] [address] Beltran Baez MD [address] [place], [place] Social History Tobacco Use Types Packs/Day [...] 4:30 PM EDT Office Visit Adult Medicine [facility] [address] [place], [place] [phone] Beltran Baez MD [address] [place], [place] documented as of this encounter Visit Diagnoses Not on filedocumented in this encounter Additional Health Concerns Assessment Noted Time PHQ-9 Depression Total Score: 0 04/26/20 25 4:16 PM EDT documented as of this encounter Care Teams County Surveyor Relationship Specialty Start Date End Date Beltran Baez MD [address] [place] [address] PCP - General 07/26/22 documented as of this encounter
--- OUTSIDE RECORDS SUMMARY | 2025-06-09 06:30 | XMS_ITS | Clinical Summary ---
Author Organization [facility] [address] [place] [address] Address [address] [place] [address] Phone Care Team Providers Care Director Sales And Marketing Name Role Phone Beltran Baez MD Primary [...] Take 10-20 mg by mouth. 8 Active acetaminophen (TYLENOL 8 HOUR) 650 [...] or split. 28 tablet 1 5 Active cyclobenzaprin e (FLEXERIL) 5 mg tablet Take 1 tablet (5 mg total) by mouth at bedtime as needed for muscle spasms. 28 tablet 5 Active ferrous sulfate 325 mg (65 mg iron) EC tablet Take 1 tablet (325 mg total) by mouth 3 (three) times a day with meals. Do not crush, chew, or split. 90 each 5 09/24/19 26 Active ascorbic acid (VITAMIN C) 500 mg tablet Take 1 tablet (500 mg total) by mouth 1 (one) time each day. 30 each 5 09/24/19 26 Active atorvastatin (LIPITOR) 40 mg tablet Take 1 tablet (40 mg total) by mouth at bedtime. 90 each 5 Active gabapentin (NEURONTIN) 400 mg capsule Take 1 capsule (400 mg total) by mouth 4 (four) times a day. Active fenofibrate (TRICOR) 48 mg tablet TAKE 1 TABLET BY MOUTH DAILY 90 tablet 1 5 Active fenofibrate (TRICOR) 48 mg tablet TAKE 1 TABLET BY MOUTH DAILY 90 tablet 1 5 06/02/20 Discontinued Active Problems Problem Noted Date Diagnosed [...] Encounters Date Type Department Care Team Description 05/19/2025 Results Follow-Up [address] [phone] Beltran Baez MD 05/19/2025 Results Follow-Up [address] [phone] Beltran Baez MD 05/16/2025 11:19 AM EST - 05/16/2025 11:59 PM EST Hospital Encounter Radiology Department - [address] [phone] Screening mammogram for breast cancer Discharge Disposition: Home or Self Care 05/15/2025 2:30 PM EST Lab Draw Station - [address] STD exposure 05/07/2025 3:30 PM EST Office Visit [address] [phone] Beltran Baez MD Hyperlipidemia, unspecified hyperlipidemia type (Primary Dx); Iron deficiency; Anxiety and depression; Fibromyalgia; STD exposure 04/28/2025 Results Follow-Up [address] [phone] Beltran Baez MD 2025 2:30 PM EDT Procedure visit Obstetrics and Gynecology - [address] [phone] Marissa Nguyễn CNM Encounter for IUD removal and reinsertion (Primary Dx) from Last 3 Months Immunizations Immunization Administration Dates Next Due H1N1 Inj Preservative Free 07/30/2009 Influenza Quadravalent, MDCK , 0.5ml, preservative free (Flucelvax) 6mo and older 06/14/2023 Influenza trivalent, 0.5mL, preservative free (Fluarix; FluLaval; Fluzone) ages 6mo and older (Afluria) 3 years and older 03/14/2017,03/18/2014,03/27/2013,2010,03/02/2009 Influenza trivalent, MDCK, 0 .5mL, preservative free (Flucelvax) 6mo and older 05/07/2025,09/16/2024 PPD Test 12/18/2014 Tdap Tetanus diptheria acell ular pertussis (Boostrix; Adacel) 7yo and older 04/25/2024,03/18/2014,07/02/2005 Surgical History Surgery Date Site/Laterality Comments BREAST REDUCTION PROCEDURE: [place] BREAST REDUCTION; COMMENT: 2008 WRIST SURGERY PROCEDURE: HISTORICAL WRIST SURGERY; COMMENT: ganglion cyst WISDOM TOOTH EXTRACTION PROCEDURE: HISTORICAL WISDOM TEETH EXTRACTION HEMORRHOID SURGERY 2016 PROCEDURE: HISTORICAL HEMMORROIDECTOMY BREAST LUMPECTOMY 2021 Right PROCEDURE: HISTORICAL BREAST LUMPECTOMY Medical History Medical History Date Comments Anxiety DX:Anxiety; COMM ENT: Therapist and psychiatrist- Rosanna Leos at [facility] Elevated C-reactive protein (CRP) DX:Elevated C-reactive [...] Sexual Orientation Not on file Obstetrics History Para Term AB IAB SAB Ectopic Multiple Livin g Live Births 0 0 0 0 Last Filed Vital Signs Vital Sign Reading Time Taken Comments Blood Pressure 120/79 05/07/2025 3:17 PM EST Pulse 63 05/07/2025 3:17 PM EST Temperature 36.6 C (97.8 F) 05/07/2025 3:17 PM EST Respiratory Rate 14 2025 2:26 PM EDT Oxygen Saturation - - Inhaled Oxygen Concentration - - Weight 88.5 kg (195 lb) 05/07/2025 3:17 PM EST Height 154.9 cm (5' 1 ) 05/07/2025 3:17 PM EST Body Mass Index 36.84 05/07/2025 3:17 PM EST Plan of Treatment Upcoming Encounters Date Type Department Care Team (Late st Contact Info) Description 09/17/2025 4:30 PM EDT Office Visit Adult Medicine [facility] [address] [place] [address] Beltran Baez MD [address] [place] [address] Health Maintenance Due Date Last Done Comments HPV Vaccines (1 - 3-dose SCDM series) 2010 COVID-19 Vaccine ( - season) 2025 04/14/2021, 09/28/2020, 09/07/2020 HIV Screening 07/02/2025 Postponed from 05/31/2022 (Patient Refused) Hepatitis B Vaccines (1 of 3 - 19+ 3-dose series) 07/02/2025 Postponed from 2002 (Patient Refused) Social Influencers of Health Screening 09/16/2025 09/16/2024 Breast Cancer Screening 05/16/2027 05/16/20, 05/08/2023, 08/01/2021 Cervical Cancer Screening: HPV 08/30/2028 09/16/2024 Cholesterol Screening (Lipid Panel) 2030 2025, 09/16/2024, 04/28/2024, Additional history exists DTaP,Tdap,and Td Vaccines (4 - Td or Tdap) 04/25/2034 04/25/2024, 03/18/2014, 07/02/2005 RSV Immunization Adult Patients (1 - 1-dose 75+ series) 2058 Depression Screening Completed 04/26/2025 Influenza Vaccine Completed 05/07/2025, , 06/14/2023, Additional history exists Hepatitis C Screening Completed 05/15/2025 HIB Vaccines Aged Out No longer eligi [...] Procedure Name Priority Date/Time Associated Diagnosis Comments MG MAMMO DIGITAL SCREENING W MICHAEL BILAT Routine 05/16/2025 11:38 AM EST Screening mammogram for breast cancer HEPATITIS C ANTIBODY Routine 05/15/2025 2:32 PM EST STD exposure LIPID PANEL WITH REFLEX TO DIRECT LDL Routine 2025 2:47 PM EDT Hyperlipidemia, unspecified hyperlipidemia type IRON AND TIBC Routine 2025 2:47 PM EDT Iron deficiency IL INSERTION INTRAUTERINE DEVICE Routine 2025 2:38 PM EDT Encounter for IUD removal and reinsertion IL REMOVAL INTRAUTERINE DEVICE Routine 2025 2:38 PM EDT Encounter for IUD removal and reinsertion from Last 3 Months Results * MG Mammo Digital Screening w Michael bilat (05/16/2025 11:38 AM EST) Anatomical Region Laterality Modality Breast Bilateral Mammography 05/18/2025 11:3 6 AM EST Impressions 05/18/2025 6:07 PM EST Benign. BI-RADS CATEGORY: 2 - BENIGN RECOMMENDATION: Screening bilateral mammogram is recommended in 1 year. Mammo Location: [facility], [address] [place] [address], [id number], . -------- FINAL REPORT -------- Dictated By: Tootie Espinoza Dictated Date: 05/18/2025 11:36 ET Assigned Physician: Tootie Espinoza Reviewed and Electronically Signed By: Tootie Espinoza Signed Date: 05/18/2025 18:07 ET Workstation ID: [id number] Transcribed By: Self Edit Transcribed Date: 05/18/2025 11:37 ET Narrative 05/18/2025 6:07 PM EST CLINICAL: 40 years old, Female, routine annual exam. COMPARISON: Mammograms 08/01/2021 and 05/08/2023. Patient has a history of prior bilateral reduction mammoplasty. TECHNIQUE: Bilateral MLO and CC views were obtained digitally with 3-D mammogram (digital breast tomosynthesis). Computer-aided detection was utilized in evaluation of this exam (CAD). FINDINGS: There is no evidence of suspicious mass or architectural distortion. No worrisome calcifications are evident. Is bilateral parenchymal scarring There has been no significant change from prior exam(s). BREAST DENSITY: B - There are scattered areas of fibroglandular density. Procedure Note Tootie Espinoza MD - 05/18/2025 CLINICAL: 40 years old, Female, routine annual exam. COMPARISON: Mammograms 08/01/2021 and 05/08/2023. Patient has a history ofprior bilateral reduction mammoplasty. TECHNIQUE: Bilateral MLO and CC views were obtained digitally with 3-Dmammogram (digital breast tomosynthesis). Computer-aided detection wasutilized in evaluation of this exam (CAD). FINDINGS: There is no evidence of suspicious mass or architectural distortion. Noworrisome calcifications are evident. Is bilateral parenchymal scarringThere has been no significant change from prior exam(s). BREAST DENSITY: B - There are scattered areas of fibroglandular density. IMPRESSION: Benign. BI-RADS CATEGORY: 2 - BENIGN RECOMMENDATION: Screening bilateral mammogram is recommended in 1 year. Mammo Location: [facility], [address] [place] [address], [address], . -------- FINAL REPORT -------- Dictated By: Tootie Espinoza Dictated Date: 05/18/2025 11:36 ET Assigned Physician: Tootie Espinoza Reviewed and Electronically Signed By: Tootie Espinoza Signed Date: 05/18/2025 18:07 ET Workstation ID: [id number] Transcribed By: Self Edit Transcribed Date: 05/18/2025 11:37 ET Beltran Baez MD IMG BI PROCEDURES Final Res ult * Hepatitis C antibody (05/15/2025 2:32 PM EST) Pathologist [facility] Hepatitis C Antibody Negative Negative LAB CHEMISTRY METHOD 05/15/2025 6:40 PM EST [facility] Blood Venous blood specimen / Unknown Venipuncture / Unknown 05/15/2025 2:32 PM EST 05/15/2025 2:32 PM EST Beltran Baez MD LAB BLOOD ORDERABLES Final Result [facility] [address] [place] [address], [place] [phone] * Lipid panel with reflex to direct LDL (2025 2:47 PM EDT) Cholesterol 175 0 - 200 mg/dL LAB CHEMISTRY METHOD 2025 6:39 PM EDT [facility] Triglycerides 145 0 - 150 mg/dL LAB CHEMISTRY METHOD 2025 6:39 PM EDT [facility] HDL 46 >=40 mg/dL LAB CHEMISTRY METHOD 2025 6:39 PM EDT [facility] LDL Calculated 100 0 - 100 mg/dL LAB CHEMISTRY METHOD 2025 6:39 PM EDT [facility] Comment:Estimated LDL Calcul ated using equation: Total cholesterol - HDL cholesterol - (Triglycerides/5) VLDL Cholesterol Kevin 29 mg/dL LAB CHEMISTRY METHOD 2025 6:39 PM EDT [facility] Non HDL Chol. (LDL+VLDL) 129 <145 mg/dL LAB CHEMISTRY METHOD 2025 6:39 PM EDT [facility] Chol/HDL Ratio 3.8 0.0 - 4.4 LAB CHEMISTRY METHOD 2025 6:39 PM EDT [facility] Blood Venous blood specimen / Unknown Venipuncture / Unknown 2025 2:47 PM EDT 2025 2:47 PM EDT us Beltran Baez MD LAB BLOOD ORDERABLES Final Result [facility] [address] [place] [address], * (ABNORMAL) Iron and TIBC (2025 2:47 PM EDT) Iron 44 40 - 150 mcg/dL LAB CHEMISTRY METHOD 2025 6:38 PM EDT [facility] TIBC 403 250 - 450 mcg/dL LAB CHEMISTRY METHOD 2025 6:38 PM EDT [facility] Iron Saturation 11(L) 15 - 50 % LAB CHEMISTRY METHOD 2025 6:38 PM EDT [facility] Blood Venous blood specimen / Unknown Venipuncture / Unknown 2025 2:47 PM EDT 2025 2:47 PM EDT Beltran Baez MD LAB BLOOD ORDERABLES Final Result [facility] [address] [place] [address], * [place] REMOVAL INTRAUTERINE DEVICE, IL INSERTION INTRAUTERINE DEVICE (2025 2:38 PM EDT) [...] CNM IN CLINIC/BEDSIDE ORDERABLE S Final Result from Last 3 Months [facility] [place] [address] [facility] [employer] Care Teams Director Sales And Marketing Relationship Specialty Start Date End Date Beltran Baez MD [address] [place] [address] [place] [address] PCP - General 07/26/22
--- OUTSIDE RECORDS SUMMARY | 2025-06-09 06:30 | XMS_ITS | Patient Health Record ---
Author Organization [employer] [facility] Address [address] [place] [address] Care Team Providers Care Coal Trammer Name Role Phone [facility] Unavailable [phone] Reason For Referral No Information Plan Of Treatment No Information
--- OUTSIDE RECORDS SUMMARY | 2025-06-09 06:30 | XMS_ITS | Encounter Summary ---
Author Organization [facility] Address [address] [place] [address] Care Team Providers Care Antenna Design Engineer Name Role Phone Beltran Baez MD Primary Care Provider Encounter Details Date Type Department Care Team (Late Contact Info) Description 04/28/2025 Results Follow-Up Adult Medicine [facility] [address] [place] [address] Beltran Baez MD [address] [place], [place] Social History Tobacco Use Types Packs/Day [...] 4:30 PM EDT Office Visit Adult Medicine [facility] [address], [place] [phone] Beltran Baez MD [address] [place], [place] documented as of this encounter Visit Diagnoses Not on filedocumented in this encounter Additional Health Concerns Assessment Noted Time PHQ-9 Depression Total Score: 0 04/26/20 25 4:16 PM EDT documented as of this encounter Care Teams Antenna Design Engineer Relationship Specialty Start Date End Date Beltran Baez MD [address] [place] [address] PCP - General 07/26/22 documented as of this encounter
== END 2025-06-09 06:28 | disposition home or self-care (01) ==
LOC: CF 06:27
PROVIDERS: Visit Provider Anesthesiology
DX: M47.817 Spondylosis without myelopathy or radiculopathy, lumbosacral region (principal); M53.3 Sacrococcygeal disorders, not elsewhere classified; M46.1 Sacroiliitis, not elsewhere classified; M62.830 Muscle spasm of back
CPT/HCPCS: J2795; J3301; Q9967

== ENCOUNTER 2025-06-09 14:21 | Outpatient (AMB) | payer OTHER, SELFPAY ==
[2025-06-09 14:23] VITALS: BP 125/65; PULSE 63; RESP 16; O2SAT 100; BMI 38.0
--- NOTE | 2025-06-09 14:23 | MHC.OFFVIS ---
Vital Signs 06/09/25 14:23 06/09/25 14:59 Height 5 ft 1 in Weight 201 lb BMI 38.0 BP 125/65 140/68 H Blood Pressure Location Lt brachial Lt brachial Position Sitting Sitting Respiration 16 16 Pulse 63 64 Pulse Source Pulse Oximeter Pulse Oximeter Pulse Oximetry (%) 100 100 Oxygen Delivery Method Room Air Room Air Intake Visit Reasons: LEFT THERAPEUTIC SIJ INJECTION Allergies sertraline Adverse Reaction (Unknown, Verified 05/04/25 16:13) Diarrhea PFSH Medical History BMI 38.0-38.9,adult Obesity De Quervain's syndrome (tenosynovitis) Anxiety and depression Former smoker Hyperlipidemia Allergic rhinitis Panic disorder Fibromyalgia IUD (intrauterine device) in place Heart palpitations Family history of ovarian cancer Eczema Muscle spasm of back Low back pain Morbid obesity with BMI of 40.0-44.9, adult Insomnia Surgical History Hx of reduction mammoplasty (~2008) History of surgery on wrist History of wisdom tooth extraction History of hemorrhoidectomy History of lumpectomy of right breast (~2021) Family History Mother No problems noted. 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 Physical Exam Vital Signs: Last Vital Signs Pulse 64 06/09/25 14:59 Resp 16 06/09/25 14:59 BP 140/68 H 06/09/25 14:59 Pulse Ox 100 06/09/25 14:59 Oxygen Delivery Method Room Air 06/09/25 14:59 BMI result Body Mass Index 38.0 Assessment & Plan Assessment & Plan (1) Sacroiliac joint pain: Code(s): M53.3 - Sacrococcygeal disorders, not elsewhere classified Category: Medical (2) Degenerative joint disease of sacroiliac joint: Code(s): M46.1 - Sacroiliitis, not elsewhere classified Category: Medical (3) Lumbosacral spondylosis: Code(s): M47.817 - Spondylosis without myelopathy or radiculopathy, lumbosacral region Category: Medical (4) Low back pain: Code(s): M54.50 - Low back pain, unspecified Category: Medical (5) Muscle spasm of back: Code(s): M62.830 - Muscle spasm of back Category: Medical (6) Sacroiliitis: Code(s): M46.1 - Sacroiliitis, not elsewhere classified Category: Medical Plan Left diagnostic sacroiliac joint injection. the risks, benefits and alternatives were discussed with the patient and informed consent was obtained, patient was placed in the prone position on the operating table. Time out was performed delineating correct site and side of the procedure , name and of the patient, patient participated in time out procedure. The lower back and upper buttocks of the patient were prepped with ChloraPrep and draped with sterile self adhesive utility towels. C-arm was brought over the operating field and picture of the left SI joint was demonstrated on the screen. Tilting C-arm contralateral to the right the posterior silhouette of the sacroiliac joint was superimposed on anterior silhouette of the sacroiliac joint. The point slightly medial to the sacroiliac joint silhouette was injected with lidocaine 2%, forming skin wheal. After that 22 gauge 3-1/2 inch spinal needle was inserted through the skin wheal and advanced to were the sacroiliac joint in tunnel vision fashion. When the needle entered the sacroiliac joint capsule injection of the contrast was performed delineating intra-articular and minimally periarticular spread of the contrast. After that injection of the treatment solution of ropivacaine 0.5% 5 cc mixed with Kenalog 40 mg into the joint was performed. Upon completion of the injection needle was withdrawn sterile Band-Aid was applied. The patient tolerated the procedure well. Orders: Orders FL guidance in treatment room 06/09/25 M46.1 - Sacroiliitis, not elsewhere classified Coding Level of Care Code Procedure Only Diagnoses Sacroiliac joint pain M53.3 Degenerative joint disease of sacroiliac joint M46.1 Lumbosacral spondylosis M47.817 Low back pain M54.50 Muscle spasm of back M62.830 Sacroiliitis M46.1
[2025-06-09 14:59] VITALS: BP 140/68; PULSE 64; RESP 16; O2SAT 100
--- OUTSIDE RECORDS SUMMARY | 2025-06-09 20:18 | XMS_ITS | Clinical Summary ---
Author Organization [facility] [address] [place] [address] Address [address] [place] [address] Phone Care Team Providers Care Eligibility Specialist Name Role Phone Beltran Baez MD [...] Department Care Team Description 05/19/2025 Results Follow-Up [address] [phone] Beltran Baez MD 05/19/2025 Results Follow-Up [address] [phone] Beltran Baez MD 05/16/2025 11:19 AM EST - 05/16/2025 11:59 PM EST Hospital Encounter Radiology Department - [address] [phone] Screening mammogram for breast cancer Discharge Disposition: Home or Self Care 05/15/2025 2:30 PM EST Lab Draw Station - [address] STD exposure 05/07/2025 3:30 PM EST Office Visit [address] [phone] Beltran Baez MD Hyperlipidemia, unspecified hyperlipidemia type (Primary Dx); Iron deficiency; Anxiety and depression; Fibromyalgia; STD exposure 04/28/2025 Results Follow-Up [address] [phone] Beltran Baez MD 2025 2:30 PM EDT Procedure visit Obstetrics and Gynecology - [address] [phone] Marissa Nguyễn CNM Encounter for IUD removal [...] Surgery Date Site/Laterality Comments BREAST REDUCTION PROCEDURE: [place] BREAST REDUCTION; COMMENT: 2008 WRIST SURGERY PROCEDURE: [...] Visit Adult Medicine [facility] [address] [place] [address] Beltran Baez MD [address] [place] [address] Health Maintenance Due Date Last Done Comments [...] Routine 2025 2:47 PM EDT Iron deficiency UT INSERTION INTRAUTERINE DEVICE Routine 2025 2:38 PM EDT Encounter for IUD removal and reinsertion [place] REMOVAL INTRAUTERINE DEVICE Routine 2025 2:38 PM [...] is recommended in 1 year. Mammo Location: [facility], [address] [place] [address], [address], . -------- FINAL REPORT -------- Dictated By: Tootie Espinoza Dictated Date: 05/18/2025 11:36 ET Assigned Physician: Tootie Espinoza Reviewed and Electronically Signed By: Tootie Espinoza Signed Date: 05/18/2025 18:07 ET Workstation ID: [id number] Transcribed By: Self Edit Transcribed Date: 05/18/2025 [...] is recommended in 1 year. Mammo Location: [facility], [address] [place] [address], [address], . -------- FINAL REPORT -------- Dictated By: Tootie Espinoza Dictated Date: 05/18/2025 11:36 ET Assigned Physician: Tootie Espinoza Reviewed and Electronically Signed By: Tootie Espinoza Signed Date: 05/18/2025 18:07 ET Workstation ID: [id number] Transcribed By: Self Edit Transcribed Date: 05/18/2025 11:37 ET Beltran Baez MD IMG BI PROCEDURES Final Res ult * Hepatitis C antibody (05/15/2025 2:32 PM EST) Pathologist [facility] Hepatitis C Antibody Negative Negative LAB CHEMISTRY METHOD 05/15/2025 6:40 PM EST [facility] Blood Venous blood specimen / Unknown Venipuncture / Unknown 05/15/2025 2:32 PM EST 05/15/2025 2:32 PM EST Beltran Baez MD LAB BLOOD ORDERABLES Final Result [facility] [address] [place] [address], [place] [phone] * Lipid panel with reflex to direct LDL (2025 2:47 PM EDT) Cholesterol 175 0 - 200 mg/dL LAB CHEMISTRY METHOD 2025 6:39 PM EDT [facility] Triglycerides 145 0 - 150 mg/dL LAB CHEMISTRY METHOD 2025 6:39 PM EDT [facility] HDL 46 >=40 mg/dL LAB CHEMISTRY METHOD 2025 6:39 PM EDT [facility] LDL Calculated 100 0 - 100 mg/dL LAB CHEMISTRY METHOD 2025 6:39 PM EDT [facility] Comment:Estimated LDL Calcul ated using equation: Total cholesterol - HDL cholesterol - (Triglycerides/5) VLDL Cholesterol Kevin 29 mg/dL LAB CHEMISTRY METHOD 2025 6:39 PM EDT [facility] Non HDL Chol. (LDL+VLDL) 129 <145 mg/dL LAB CHEMISTRY METHOD 2025 6:39 PM EDT [facility] Chol/HDL Ratio 3.8 0.0 - 4.4 LAB CHEMISTRY METHOD 2025 6:39 PM EDT [facility] Blood Venous blood specimen / Unknown Venipuncture / Unknown 2025 2:47 PM EDT 2025 2:47 PM EDT us Beltran Baez MD LAB BLOOD ORDERABLES Final Result [facility] [address] [place] [address], * (ABNORMAL) Iron and TIBC (2025 2:47 PM EDT) Iron 44 40 - 150 mcg/dL LAB CHEMISTRY METHOD 2025 6:38 PM EDT [facility] TIBC 403 250 - 450 mcg/dL LAB CHEMISTRY METHOD 2025 6:38 PM EDT [facility] Iron Saturation 11(L) 15 - 50 % LAB CHEMISTRY METHOD 2025 6:38 PM EDT [facility] Blood Venous blood specimen / Unknown Venipuncture / Unknown 2025 2:47 PM EDT 2025 2:47 PM EDT Beltran Baez MD LAB BLOOD ORDERABLES Final Result [facility] ([facility] [address] [place] [address], * [place] REMOVAL INTRAUTERINE DEVICE, [place] INSERTION INTRAUTERINE DEVICE (2025 2:38 PM EDT) [...] Final Result from Last 3 Months [facility] [place] [address] [facility] [employer] Care Teams Eligibility Specialist Relationship Specialty Start Date End Date Beltran Baez MD [address] [place] [address] [place] [address] PCP - General 07/26/22
--- OUTSIDE RECORDS SUMMARY | 2025-06-09 20:18 | XMS_ITS | Encounter Summary ---
Author Organization [facility] Address [address] [place] [address] Care Team Providers Care Automobile Detailer Name Role Phone Beltran Baez MD Primary Care Provider Encounter Details Date Type Department Care Team (Late Contact Info) Description 04/28/2025 Results Follow-Up Adult Medicine [facility] [address] [place] [address] Beltran Baez MD [address] [place], [place] Social History Tobacco Use Types Packs/Day [...] [facility] [address] [place], [place] [phone] Beltran Baez MD [address] [place], [place] documented as of this encounter Visit Diagnoses Not on filedocumented in this encounter Additional Health Concerns Assessment Noted Time PHQ-9 Depression Total Score: 0 04/26/20 25 4:16 PM EDT documented as of this encounter Care Teams Automobile Detailer Relationship Specialty Start Date End Date Beltran Baez MD [address] [place] [address] PCP - General 07/26/22 documented as of this encounter
--- OUTSIDE RECORDS SUMMARY | 2025-06-09 20:18 | XMS_ITS | Encounter Summary ---
Author Organization [facility] Address [address] [place] [address] Care Team Providers Care Eye Clinic Manager Name Role Phone Beltran Baez MD Primary Care Provider Encounter Details Date Type Department Care Team (Late Contact Info) Description 05/19/2025 Results Follow-Up Adult Medicine [facility] [address] [place] [address] Beltran Baez MD [address] [place], [place] Social History Tobacco Use Types Packs/Day [...] 4:30 PM EDT Office Visit Adult Medicine [facility] [address] [place], [place] [phone] Beltran Baez MD [address] [place], [place] documented as of this encounter Visit Diagnoses Not on filedocumented in this encounter Additional Health Concerns Assessment Noted Time PHQ-9 Depression Total Score: 0 04/26/20 25 4:16 PM EDT documented as of this encounter Care Teams Eye Clinic Manager Relationship Specialty Start Date End Date Beltran Baez MD [address] [place] [address] PCP - General 07/26/22 documented as of this encounter
--- OUTSIDE RECORDS SUMMARY | 2025-06-09 20:18 | XMS_ITS | Encounter Summary ---
Author Organization [facility] Address [address] [place] [address] Care Team Providers Care Laborer Tin Can Name Role Phone Beltran Baez MD Primary Care Provider Encounter Details Date Type Department Care Team (Late Contact Info) Description 05/19/2025 Results Follow-Up Adult Medicine [facility] [address] [place] [phone] Beltran Baez MD [address] [place], [place] Social History Tobacco Use Types Packs/Day [...] 4:30 PM EDT Office Visit Adult Medicine [facility] [address] [place], [place] [phone] Beltran Baez MD [address] [place], [place] documented as of this encounter Visit Diagnoses Not on filedocumented in this encounter Additional Health Concerns Assessment Noted Time PHQ-9 Depression Total Score: 0 04/26/20 25 4:16 PM EDT documented as of this encounter Care Teams Laborer Tin Can Relationship Specialty Start Date End Date Beltran Baez MD [address] [place] [address] PCP - General 07/26/22 documented as of this encounter
== END 2025-06-09 15:28 | disposition home or self-care (01) ==
LOC: HO.PMCPRC 14:21
PROVIDERS: PCP Internal Medicine; Visit Provider Anesthesiology
DX: M53.3 Sacrococcygeal disorders, not elsewhere classified (principal); M46.1 Sacroiliitis, not elsewhere classified; M47.817 Spondylosis without myelopathy or radiculopathy, lumbosacral region; M54.50 Low back pain, unspecified; M62.830 Muscle spasm of back
CPT/HCPCS: 27096